=== PATIENT | female | born 1945 | race African-American/Black ===

== ENCOUNTER 2017-03-10 07:07 | Emergency (ER) | payer MEDICARE ==
[2017-03-10] MEDS ORDERED: LORazepam 2 MG/ML DISP.SYRIN IV ONE (07:23)
[2017-03-10] MEDS ORDERED: ONDANSETRON HCL/PF 2 MG/ML VIAL IV ONE (07:23)
[2017-03-10] MEDS ORDERED: LORazepam 2 MG/ML DISP.SYRIN ONE ×2 (07:24→09:26)
[2017-03-10] MEDS ORDERED: ONDANSETRON HCL/PF 2 MG/ML VIAL ONE (07:24)
[2017-03-10] MEDS ORDERED: NORMAL SALINE 1,000 ML IV ONE (07:33)
--- NOTE | 2017-03-10 07:34 | ERNOTE ---
<Juan C Barraza - Last Filed: 03/10/17 07:47> Medical Problem HPI - Narrative Date of Service: 03/10/17 - General Chief Complaint: Nausea/Vomiting Time Seen by Provider: 03/10/17 07:21 Source: patient Exam Limitations: no limitations - Immun/Allergies/Home Medications Immunizations: IMMUNIZATION HX Immunizations Up to Date Yes History of Influenza Vaccine No Hx Pneumococcal Vaccination No Allergies/Adverse Reactions: Allergies codeine Allergy (Verified 03/10/17 07:18) lisinopril Allergy (Verified 03/10/17 07:18) Penicillins Allergy (Verified 03/10/17 07:18) Sulfa (Sulfonamide Antibiotics) Allergy (Verified 03/10/17 07:18) Tetracyclines Allergy (Verified 03/10/17 07:18) verapamil [Verapamil] Allergy (Verified 03/10/17 07:18) MRI Dye Allergy (Uncoded 03/10/17 07:18) Home Medications: HOME MEDICATIONS Glimepiride [Amaryl] 4 mg PO DAILY 03/27/14 [Last Taken 02/26/16 08:00] Montelukast Sodium [Singulair] 10 mg PO DAILY 03/27/14 [Last Taken 02/26/16 08: 00] Rosuvastatin Calcium [Crestor] 5 mg PO HS 03/27/14 [Last Taken 02/25/16 21:00] Spironolactone [Aldactone] 25 mg PO BID 03/27/14 [Last Taken 02/25/16 21:00] Valsartan [Diovan] 160 mg PO DAILY #.1 tablet 02/27/16 [Last Taken Unknown] Atenolol [Tenormin] 100 mg PO DAILY 03/10/17 [Last Taken Unknown] DULoxetine HCL [Cymbalta] 30 mg PO HS 03/10/17 [Last Taken Unknown] Dexlansoprazole [Dexilant] 60 mg PO BID 03/10/17 [Last Taken Unknown] Duloxetine HCl [Cymbalta] 60 mg PO DAILY 03/10/17 [Last Taken Unknown] Insulin Glargine,Hum.rec.anlog [Lantus Solostar] 10 unit SQ HS 03/10/17 [Last Taken Unknown] Mirtazapine [Remeron] 30 mg PO HS 03/10/17 [Last Taken Unknown] - History of Present History Narrative: This is a 71-year-old female who comes into the emergency department with nausea and vomiting that started last night at 10 PM. The patient relates that she has a long history of gastroparesis, and has episodes where she has nausea and vomiting throughout the night quite frequently. A month ago she was having them every week, 3 times a week. She would typically start vomiting in the evening and get better by the morning. She said she usually felt a bit weak, but did not have any other significant symptoms. She had some medicines changed recently including her diabetes medicines. She says that she has not had an episode of vomiting for the last 2 weeks. Last night she started having her typical emesis. Unable to keep any water or food down. However unlike usual this morning she says she feels much weaker than usual and also says "I'm having trouble getting my words out" the patient denies any head trauma denies headache blurred vision. She denies fever but says that she did have chills last night. She denies any diarrhea. She denies blood in her stool or blood in her emesis. She denies abdominal pain or shortness of breath. She denies chest pain. She denies any other somatic complaints Timing: constant Severity: severe Modifying Factors - (Improves): Present: other. Absent: cold therapy - nothing , eating, immobilization, medication, movement Modifying Factors - (Worsens): Present: eating Review of Systems - Review of Systems Constitutional: Present: weakness, fatigue, malaise EYE: Present: no symptoms reported ENT: Present: no symptoms reported Respiratory: Present: no symptoms reported Cardiology: Present: no symptoms reported Gastrointestinal/Abdominal: Present: nausea, vomiting. Absent: diarrhea, constipation, abdominal pain Genitourinary: Present: no symptoms reported Musculoskeletal: Present: no symptoms reported Skin: Present: no symptoms reported Neurological: Present: other - trouble getting words out Endocrine: Present: other - has been having difficulty with her blood sugars. Which was changed from [place] to Lantus Hematologic/Lymphatic: Present: no symptoms reported Psych: Present: no symptoms reported All Other Systems: All systems neg except as marked - Patient's Past Medical History Patient History - Medical: Anemia, Anxiety, Diabetes Type 2, Depression, Fibromyalgia, GERD, Headache, Osteoarthritis Patient History - Cardiac/Respiratory: No pertinent hx Patient History - Cancer: Breast Patient History - Surgical Procedures: Cancer Surgery, Cataracts, Colonoscopy, Total Knee Replacement, Other Patient History - Other: None - Family History Mother Family History - Medical: , Diabetes Type 1 Father Family History - Medical: Family History - Cardiac/Respiratory: Myocardial Infarction - Social History Living Situations: spouse Abuse History: No History of abuse Psych History: No pertinent hx Smoking Status: Never smoker Have you smoked in the past 12 months: No Do you dip or chew tobacco: No Alcohol Use: none Drug Use: none - Immunizations Immunizations Up to Date: Yes Hx Pneumococcal Vaccination: No History of Influenza Vaccine: No Physical Exam - Physical Exam General Appearance: Present: wd/wn, alert, no apparent distress, other - patient 's emesis is primarily bilious. It is small amounts. There is not a strong abdominal contraction to lead to projectile vomiting. No abdominal pain is apparent. Head Exam: Present: normal inspection, no evidence of injury Eye Exam: Normal inspection: bilateral, PERRL: bilateral, EOMI: bilateral Ears, Nose, Throat: Present: normal ENT inspection, normal pharynx Neck: Present: normal inspection, nontender Respiratory: Present: no respiratory distress, normal breath sounds, no accessory muscle use, lungs clear Cardiovascular/Chest: Present: regular rate, rhythm, no murmur, normal peripheral pulses Gastrointestinal/Abdominal: Present: normal bowel sounds, nontender, nondistended, soft Back Exam: Present: normal inspection, no CVA tenderness, no vertebral tenderness Extremity Exam: Present: normal inspection, non-tender, normal range of motion Neurological Exam: Present: alert, oriented, normal mood/affect, no motor/ sensory deficits, other - she does appear anxious Skin Exam: Present: normal color Lymphatic Exam: Present: no adenopathy ED Progress - Results and Orders Patient's Lab Results:: I have reviewed the patient's lab results. - Vital Signs Patient's Vital Signs:: I have reviewed the patient's vital signs. Vital Signs: Vital Signs 03/10/17 07:08 Temperature 36.5 C Pulse Rate 74 Respiratory 16 Rate Blood Pressure 158/83 O2 Sat by Pulse 90 Oximetry - EKG EKG: NSR, other - voltage criteria only for LVH. Normal axis normal intervals no acute ischemic changes and borderline T-wave flattening in precordial leads EKG read: Interp. by me - Progress/Reassessment Chief Complaint: Nausea/Vomiting Progress:: Improved Progress Note-Subjective: 03/10/17 07:48 Patient received 16 mg of Zofran and 1 mg of Ativan. She is much more comfortable. Her retching and vomiting has stopped. She is very sleepy. She did just receive sedative medicines and has not slept all night. I am checking EKG and cardiac enzymes to eliminate cardiac etiology. If the patient had acute coronary syndrome as the cause of her symptoms, I would expected single troponin to be elevated as her symptoms started last night at 10 PM. I'm also obtaining a CT scan of her head due to her feeling like she can 't get the words out. Basic blood and urine tests are pending. I fully anticipate that she will have these tests come back essentially normal. I suspect when she is woken up in an hour to 2 hours she will feel much better and likely be able to go home. She will need to have conversation with her family doctor about getting back on the medicines which were working so well for her. - Transfer of Care Physician Sign Out: Juan C Barrzaa Brief History: 71 female with h/o gastroparesis with N/V. Also feels week Receiving Physician: Hong Srinivasan Pending Results: CT/MRI results, Labs, X-ray results Expected Disposition: Discharge Departure - Departure Clinical Impression: Gastroparesis due to DM, Weakness, Confusion and disorientation Intractable vomiting with nausea Qualifiers: Vomiting type: unspecified Qualified Code(s): R11.2 - Nausea with vomiting, unspecified Disposition: Home self-care Condition: Good Instructions: Gastroparesis Additional Instructions: Followup with your [place] doctor next week. <Hong Srinivasan - Last Filed: 03/10/17 09:06> Medical Problem HPI - Immun/Allergies/Home Medications Immunizations: IMMUNIZATION HX Immunizations Up to Date Yes History of Influenza Vaccine No Hx Pneumococcal Vaccination No ED Progress - Vital Signs Vital Signs: Vital Signs 03/10/17 03/10/17 03/10/17 07:08 07:10 07:26 Temperature 36.5 C Pulse Rate 74 69 82 Respiratory 16 18 13 Rate Blood Pressure 158/83 158/83 195/87 O2 Sat by Pulse 90 99 91 Oximetry 03/10/17 03/10/17 03/10/17 07:40 08:09 08:24 Temperature Pulse Rate 62 64 69 Respiratory 15 17 14 Rate Blood Pressure 150/73 136/63 138/59 O2 Sat by Pulse 93 99 Oximetry 03/10/17 08:59 Temperature Pulse Rate 78 Respiratory 14 Rate Blood Pressure 126/61 O2 Sat by Pulse Oximetry - Progress/Reassessment Progress Note-Subjective: 03/10/17 09:05 Feels much much better
[2017-03-10 07:43] LABS: Hematocrit 34.3 % (37.0-47.0); Hemoglobin 11.4 gm/dL (12.5-16.0); Mean Cell Volume 88.2 fl (78-100); Mean Corpuscular Hemoglobin 29.3 pg (27-31); Mean Corpuscular Hgb Conc 33.2 g/dl (32-36); Mean Platelet Volume 10.2 fl (6.0-9.5); Neutrophil # 7.2 K/mm3 (1.3-6.0); Neutrophil % 76.4 % (42-75.0); Platelet Count 303 K/mm3 (150-450); Red Blood Count 3.89 M/mm3 (4.2-5.4); Red Cell Distribution Width 14.2 % (11.5-14.0); White Blood Count 9.4 K/mm3 (4.0-10.5)
[2017-03-10 08:02] LABS: ALT 13 U/L (19-67); AST 16 U/L (0-48); Albumin * 3.6 gm/dl (3.4-5.0); Alkaline Phosphatase * 99 U/L (50-170); Anion Gap 14.3 mmol/L (6.8-13.8); BUN/Creatinine Ratio 12.2 (9.0-21.6); Bilirubin, Total 0.3 mg/dL (0.0-1.1); Blood Urea Nitrogen 10 mg/dL (3-23); Carbon Dioxide 25.3 mmol/L (24-32.6); Chloride 104 mmol/L (97-106); Glucose * 225 mg/dL (70-110); Potassium 3.6 mmol/L (3.4-4.6); Sodium 140 mmol/L (132-142); Total Protein 7.9 gm/dL (6.2-8.2); Troponin I Less than 0.017 ng/ml (0.00-0.10)
[2017-03-10 09:02] LABS: Urine Bilirubin Negative (NEGATIVE); Urine Blood Negative /ul (NEGATIVE); Urine Ketone Negative (NEGATIVE); Urine Nitrite Negative (NEGATIVE); Urine Protein Negative (NEGATIVE); Urine Specific Gravity 1.015 SP.GR. (1.005-1.010); Urine pH 7.5 pH (5.0-7.0)
[2017-03-10 09:08] LABS: Urine Appearance Clear; Urine Bacteria None Seen; Urine Color Yellow; Urine RBC None Seen /hpf (0-5); Urine WBC TRACE /hpf (0-5)
[2017-03-10] MEDS ORDERED: PROMETHAZINE HCL 50 MG/ML AMPUL IM ONE (09:23)
[2017-03-10] MEDS ORDERED: LORazepam 2 MG/ML DISP.SYRIN IM ONE (09:24)
[2017-03-10] MEDS ORDERED: PROMETHAZINE HCL 25 MG/ML AMPUL ONE (09:26)
[2017-03-10] MEDS ORDERED: chlorproMAZINE HCL 10 MG in NORMAL SALINE 50 ML IV ONE (10:19)
[2017-03-10] MEDS ORDERED: diphenhydrAMINE HCL 50 MG/ML VIAL IV ONE (10:19)
[2017-03-10] MEDS ORDERED: diphenhydrAMINE HCL 50 MG/ML VIAL ONE (10:32)
[2017-03-10 13:51] VITALS: BP 124/60
== END 2017-03-10 13:51 | disposition home or self-care (01) ==
LOC: ER 07:07
PROC: 0T9B7ZZ Drainage of Bladder, Via Natural or Artificial Opening (ICD-10-PCS; principal; 2017-03-10)
DX: E11.43 Type 2 diabetes mellitus with diabetic autonomic (poly)neuropathy (principal); K31.84 Gastroparesis; R11.2 Nausea with vomiting, unspecified; R41.0 Disorientation, unspecified; R53.1 Weakness
CPT/HCPCS: 36415; 51701; 70450; 71010; 80053; 81001; 84484; 85025; 93005; 96372; 96374; 96375; 99284; J2405

== ENCOUNTER 2017-04-01 12:44 | Emergency (ER) | payer MEDICARE ==
--- OUTSIDE RECORDS SUMMARY | 2017-04-01 13:26 | XMS REPORT | Clinical Summary ---
:1945 Author Organization [employer] [place] [address] Care Team Providers Name Role Phone Unavailable Primary Care Provider Unavailable Source Comments This disclosure is being made pursuant to the [employer] program and maynot contain all information available regarding this patient.[facility] Allergies Not on File Current Medications Be aware that medications may not be up to date as of this document. Alwaysverify current medications with the patient. Not on file Active Problems Not on file Social History Tobacco Use Types Packs/Day Years Used Date Never Assessed Sex Assigned at Date Recorded Not on file Last Filed Vital Signs Not on file Plan of Treatment Health Maintenance Due Date Last Done Comments Tetanus/Pertussis (1 - Tdap) 1962 Colonoscopy 1993 Mammogram 1993 Well Adult Visit 1993 Zoster Vaccine 60+ 2003 Bone Density 2008 Pneumococcal Low/Medium Risk 65+ (1 of 2 - PCV13) 2008 INFLUENZA IMMUNIZATION (#1) 2017 Results Not on filefrom Last 3 Months
[2017-04-01] MEDS ORDERED: METOCLOPRAMIDE HCL 5 MG/ML VIAL IV ONE (13:32)
[2017-04-01] MEDS ORDERED: diphenhydrAMINE HCL 50 MG/ML VIAL IV ONE (13:32)
[2017-04-01] MEDS ORDERED: NORMAL SALINE 1,000 ML IV ONE ×2 (13:32→15:28)
[2017-04-01] MEDS ORDERED: diphenhydrAMINE HCL 50 MG/ML VIAL ONE (13:52)
[2017-04-01] MEDS ORDERED: PHENTOLAMINE MESYLATE 5 MG/ML VIAL ONE (13:52)
[2017-04-01] MEDS ORDERED: METOCLOPRAMIDE HCL 5 MG/ML VIAL ONE (13:55)
[2017-04-01 13:58] LABS: Hematocrit 37.7 % (37.0-47.0); Hemoglobin 12.5 gm/dL (12.5-16.0); Mean Cell Volume 87.5 fl (78-100); Mean Corpuscular Hgb Conc 33.2 g/dl (32-36); Mean Platelet Volume 10.9 fl (6.0-9.5); Neutrophil # 11.1 K/mm3 (1.3-6.0); Neutrophil % 85.1 % (42-75.0); Platelet Count 355 K/mm3 (150-450); Red Blood Count 4.31 M/mm3 (4.2-5.4); Red Cell Distribution Width 13.7 % (11.5-14.0); White Blood Count 13.1 K/mm3 (4.0-10.5)
--- NOTE | 2017-04-01 14:09 | ERNOTE ---
Abdominal HPI - General Chief Complaint: Abdominal Pain Time Seen by Provider: 04/01/17 13:19 Source: patient, family - Immun/Allergies/Home Medications Immunizatons: IMMUNIZATION HX Immunizations Up to Date Yes History of Influenza Vaccine Yes Hx Pneumococcal Vaccination Yes Allergies/Adverse Reactions: Allergies codeine Allergy (Verified 04/01/17 13:01) lisinopril Allergy (Verified 04/01/17 13:01) Penicillins Allergy (Verified 04/01/17 13:01) Sulfa (Sulfonamide Antibiotics) Allergy (Verified 04/01/17 13:01) Tetracyclines Allergy (Verified 04/01/17 13:01) verapamil [Verapamil] Allergy (Verified 04/01/17 13:01) metoclopramide [From Reglan] Adverse Reaction (Verified 04/01/17 13:01) Other MRI Dye Allergy (Uncoded 04/01/17 13:01) Home Medications: HOME MEDICATIONS Glimepiride [Amaryl] 4 mg PO DAILY 03/27/14 [Last Taken 02/26/16 08:00] Montelukast Sodium [Singulair] 10 mg PO DAILY 03/27/14 [Last Taken 02/26/16 08: 00] Rosuvastatin Calcium [Crestor] 5 mg PO HS 03/27/14 [Last Taken 02/25/16 21:00] Spironolactone [Aldactone] 25 mg PO BID 03/27/14 [Last Taken 02/25/16 21:00] Valsartan [Diovan] 160 mg PO DAILY #.1 tablet 02/27/16 [Last Taken Unknown] Atenolol [Tenormin] 100 mg PO DAILY 03/10/17 [Last Taken Unknown] DULoxetine HCL [Cymbalta] 30 mg PO HS 03/10/17 [Last Taken Unknown] Dexlansoprazole [Dexilant] 60 mg PO BID 03/10/17 [Last Taken Unknown] Duloxetine HCl [Cymbalta] 60 mg PO DAILY 03/10/17 [Last Taken Unknown] Insulin Glargine,Hum.rec.anlog [Lantus Solostar] 10 unit SQ HS 03/10/17 [Last Taken Unknown] Mirtazapine [Remeron] 30 mg PO HS 03/10/17 [Last Taken Unknown] Metoclopramide HCl [Reglan] 5 mg PO ACHS PRN #28 tab 04/01/17 [Last Taken Unknown] - History of Present Illness Narrative: Patient presents with epigastric abdominal pain with fairly profound nausea and vomiting. Onset of symptoms was last night and she has not been able to keep anything down for the past roughly 16 hours. Patient states that she feels exceedingly thirsty however has not been able to eat or drink because of the nausea and vomiting. Timing: constant Quality: moderate Activities at Onset: none Modifying Factors - (Worsens): Present: eating Associated Symptoms: Present: nausea, vomiting Prior Abdominal Problems: Present: other - with her diabetes Review of Systems - Review of Systems Constitutional: Present: See HPI EYE: Present: no symptoms reported ENT: Present: no symptoms reported Respiratory: Present: no symptoms reported Cardiology: Present: no symptoms reported Gastrointestinal/Abdominal: Present: nausea, vomiting, abdominal pain Genitourinary: Present: no symptoms reported Musculoskeletal: Present: no symptoms reported Skin: Present: no symptoms reported Neurological: Present: no symptoms reported Endocrine: Present: no symptoms reported Hematologic/Lymphatic: Present: no symptoms reported Psych: Present: no symptoms reported - Patient's Past Medical History Patient History - Medical: Anemia, Anxiety, Diabetes Type 2, Depression, Fibromyalgia, GERD, Headache, Osteoarthritis Patient History - Cardiac/Respiratory: No pertinent hx Patient History - Cancer: Breast Patient History - Surgical Procedures: Cancer Surgery, Cataracts, Colonoscopy, Total Knee Replacement, Other Patient History - Other: None LMP (females 10-50): post - Family History Mother Family History - Medical: , Diabetes Type 1 Father Family History - Medical: Family History - Cardiac/Respiratory: Myocardial Infarction - Social History Living Situations: home Abuse History: No History of abuse Psych History: No pertinent hx Smoking Status: Never smoker Alcohol Use: none Drug Use: none - Immunizations Immunizations Up to Date: Yes Hx Pneumococcal Vaccination: Yes History of Influenza Vaccine: Yes Physical Exam - Physical Exam General Appearance: Present: wd/wn, alert, moderate distress Head Exam: Present: normal inspection, no evidence of injury Eye Exam: Normal inspection: bilateral, PERRL: bilateral Ears, Nose, Throat: Present: normal ENT inspection, H, normal pharynx Neck: Present: normal inspection, nontender Respiratory: Present: no respiratory distress, normal breath sounds, no accessory muscle use, chest nontender, lungs clear Cardiovascular/Chest: Present: regular rate, rhythm, no murmur, normal peripheral pulses Gastrointestinal/Abdominal: Present: normal bowel sounds, nondistended, soft, no organomegaly, tenderness Rectal Exam: Present: deferred Back Exam: Present: normal inspection, normal range of motion Extremity Exam: Present: normal inspection, non-tender, no edema, normal range of motion Neurological Exam: Present: alert, oriented, normal mood/affect Skin Exam: Present: normal color, warm/dry Lymphatic Exam: Present: no adenopathy ED Progress - Results and Orders Patient's Lab Results:: I have reviewed the patient's lab results. - Vital Signs Patient's Vital Signs:: I have reviewed the patient's vital signs. Vital Signs: Vital Signs 04/01/17 12:54 Temperature 35.5 C L Pulse Rate 71 Respiratory 22 H Rate Blood Pressure 140/78 O2 Sat by Pulse 99 Oximetry - X-Ray X-Ray #1 X-Ray: abdomen Interpretation: Reviewed by me - CT/Ultrasound CT/Ultrasound Narrative: CT results were reviewed by me. - Progress/Reassessment Chief Complaint: Abdominal Pain Progress:: Improved Plan - Plan Plan: While the patient is pain-free the contracted gallbladder with multiple gallstones is of some concern to me. I discussed the case with the surgeon sporting goods salesperson Dr. Dickinson and he requests that we get an outpatient gallbladder ultrasound tomorrow and he will see the patient in the office on Saturday. She has had an EGD in the past and it revealed what sounds like gastroparesis.. The patient was started on Reglan however she couldn't tolerate it, I told her we gave her Reglan and Benadryl here and she tolerated just fine. She will try the Reglan and and this time she will take it with Benadryl and agrees to come back tomorrow for the ultrasound and see the surgeon on Saturday. Departure - Departure Clinical Impression: Gastroparesis due to DM Cholelithiasis Qualifiers: Cholelithiasis location: gallbladder Cholecystitis presence: without cholecystitis Biliary obstruction: without biliary obstruction Qualified Code(s) : K80.20 - Calculus of gallbladder without cholecystitis without obstruction Condition: Good Instructions: Gastroparesis, Cholelithiasis, [id number] Referrals: Ananth Dickinson MD [Associate] - Prescriptions: Metoclopramide HCl [Reglan] 5 mg PO ACHS PRN #28 tab PRN Reason: Moderate Pain
[2017-04-01 14:11] LABS: ALT 8 U/L (19-67); AST 11 U/L (0-48); Alkaline Phosphatase * 112 U/L (50-170); BUN/Creatinine Ratio 14.8 (9.0-21.6); Bilirubin, Total 0.4 mg/dL (0.0-1.1); Blood Urea Nitrogen 13 mg/dL (3-23); Ca. Corrected For Albumin 9.7 mg/dL (8.4-10.2); Carbon Dioxide 21.7 mmol/L (24-32.6); Chloride 101 mmol/L (97-106); Glucose * 232 mg/dL (70-110); Lipase 76 U/L (73-393); Magnesium 1.6 mg/dL (1.2-2.8); Potassium 3.7 mmol/L (3.4-4.6); Sodium 139 mmol/L (132-142); Total Protein 9.1 gm/dL (6.2-8.2)
[2017-04-01] MEDS ORDERED: DIATRIZOATE MEGLUMINE, SODIUM 30 ML BTL PO ONE (14:48)
[2017-04-01] MEDS ORDERED: DIATRIZOATE MEGLUMINE, SODIUM 30 ML BTL ONE (14:49)
[2017-04-01 18:00] VITALS: BP 184/79
== END 2017-04-01 17:48 | disposition home or self-care (01) ==
LOC: ER 12:44
DX: E11.43 Type 2 diabetes mellitus with diabetic autonomic (poly)neuropathy (principal); K31.84 Gastroparesis; K80.20 Calculus of gallbladder without cholecystitis without obstruction; Z85.3 Personal history of malignant neoplasm of breast

== ENCOUNTER 2017-04-11 01:12 | Emergency (ER) | payer MEDICARE ==
--- NOTE | 2017-04-11 02:07 | ERNOTE ---
Abdominal HPI - General Chief Complaint: Abdominal Pain Time Seen by Provider: 04/11/17 01:45 Source: patient Exam Limitations: no limitations - Immun/Allergies/Home Medications Immunizatons: IMMUNIZATION HX Immunizations Up to Date Yes History of Influenza Vaccine Yes Hx Pneumococcal Vaccination Yes Allergies/Adverse Reactions: Allergies codeine Allergy (Verified 04/11/17 01:25) lisinopril Allergy (Verified 04/11/17 01:25) Penicillins Allergy (Verified 04/11/17 01:25) Sulfa (Sulfonamide Antibiotics) Allergy (Verified 04/11/17 01:25) Tetracyclines Allergy (Verified 04/11/17 01:25) verapamil [Verapamil] Allergy (Verified 04/11/17 01:25) metoclopramide [From Reglan] Adverse Reaction (Verified 04/11/17 01:25) Other MRI Dye Allergy (Uncoded 04/11/17 01:25) Home Medications: HOME MEDICATIONS Glimepiride [Amaryl] 4 mg PO DAILY 03/27/14 [Last Taken 02/26/16 08:00] Montelukast Sodium [Singulair] 10 mg PO DAILY 03/27/14 [Last Taken 02/26/16 08: 00] Rosuvastatin Calcium [Crestor] 5 mg PO HS 03/27/14 [Last Taken 02/25/16 21:00] Spironolactone [Aldactone] 25 mg PO BID 03/27/14 [Last Taken 02/25/16 21:00] Valsartan [Diovan] 160 mg PO DAILY #.1 tablet 02/27/16 [Last Taken Unknown] Atenolol [Tenormin] 100 mg PO DAILY 03/10/17 [Last Taken Unknown] DULoxetine HCL [Cymbalta] 30 mg PO HS 03/10/17 [Last Taken Unknown] Dexlansoprazole [Dexilant] 60 mg PO BID 03/10/17 [Last Taken Unknown] Duloxetine HCl [Cymbalta] 60 mg PO DAILY 03/10/17 [Last Taken Unknown] Insulin Glargine,Hum.rec.anlog [Lantus Solostar] 10 unit SQ HS 03/10/17 [Last Taken Unknown] Mirtazapine [Remeron] 30 mg PO HS 03/10/17 [Last Taken Unknown] Promethazine HCl [Phenergan (Promethazine)] 25 mg PO Q6H PRN #30 tab 04/11/17 [ Last Taken Unknown] traMADol HCL [Ultram] 50 mg PO QID PRN #20 tab 04/11/17 [Last Taken Unknown] - History of Present Illness Narrative: Pt has been having abdominal pain and nausea from diabetic gastroparesis for a number of months. She has seen Dr. Dickinson to assess her gallbladder and he made a referral for her to [facility] gastroenterology. Tonight the nausea and pain increased Timing: getting worse Quality: moderate, severe Activities at Onset: none Modifying Factors - (Worsens): Present: eating, lying down Prior Abdominal Problems: Present: similar symptoms Prior Treatment: Present: recently seen, treated by physician Review of Systems - Review of Systems Constitutional: Present: weakness, fatigue EYE: Present: no symptoms reported ENT: Present: no symptoms reported Respiratory: Present: no symptoms reported Cardiology: Present: no symptoms reported Gastrointestinal/Abdominal: Present: See HPI Genitourinary: Present: no symptoms reported Musculoskeletal: Present: no symptoms reported Skin: Present: no symptoms reported Neurological: Present: anxiety Endocrine: Present: no symptoms reported Hematologic/Lymphatic: Present: no symptoms reported Psych: Present: no symptoms reported - Patient's Past Medical History Patient History - Medical: Anemia, Anxiety, Diabetes Type 2, Depression, Fibromyalgia, GERD, Headache, Osteoarthritis, Other Patient History - Cardiac/Respiratory: No pertinent hx Patient History - Cancer: Breast Patient History - Surgical Procedures: Cancer Surgery, Cataracts, Colonoscopy, Total Knee Replacement, Other Patient History - Other: None - Family History Mother Family History - Medical: , Diabetes Type 1 Father Family History - Medical: Family History - Cardiac/Respiratory: Myocardial Infarction - Social History Living Situations: spouse Abuse History: No History of abuse Psych History: No pertinent hx Smoking Status: Never smoker Have you smoked in the past 12 months: No Do you dip or chew tobacco: No Alcohol Use: none Drug Use: none - Immunizations Immunizations Up to Date: Yes Hx Pneumococcal Vaccination: Yes History of Influenza Vaccine: Yes Physical Exam - Physical Exam General Appearance: Present: wd/wn, alert, mild distress Head Exam: Present: normal inspection, no evidence of injury Eye Exam: Normal inspection: bilateral Ears, Nose, Throat: Present: normal ENT inspection Neck: Present: normal inspection, nontender Respiratory: Present: no respiratory distress, no accessory muscle use, lungs clear Cardiovascular/Chest: Present: regular rate, rhythm, no murmur Gastrointestinal/Abdominal: Present: normal bowel sounds, nondistended, tenderness - generalized more epigastric Back Exam: Present: normal inspection, no vertebral tenderness Extremity Exam: Present: normal inspection, normal range of motion, no edema Neurological Exam: Present: alert, oriented Skin Exam: Present: normal color, warm/dry ED Progress - Results and Orders Patient's Lab Results:: I have reviewed the patient's lab results. Results and Orders: Laboratory Tests 04/11/17 04/11/17 01:57 01:57 WBC 13.1 H Hgb 11.1 L Hct 34.0 L Plt Count 305 Sodium 140 Potassium 3.8 Chloride 103 BUN 8 Creatinine 0.81 Random Glucose 196 H Calcium 9.5 Total Bilirubin 0.4 AST 10 ALT 7 L Alkaline Phosphatase 100 Total Protein 7.5 Albumin 3.3 L - Vital Signs Patient's Vital Signs:: I have reviewed the patient's vital signs. Vital Signs: Vital Signs 04/11/17 01:17 Temperature 36.2 C L Pulse Rate 60 Respiratory 16 Rate Blood Pressure 144/85 O2 Sat by Pulse 99 Oximetry - Progress/Reassessment Chief Complaint: Abdominal Pain Progress:: Improved Progress Note-Subjective: 04/11/17 05:00 Discussed the difficulty in getting diabetic gastroparesis under control. pt expressed understanding Departure - Departure Clinical Impression: Gastroparesis due to DM Disposition: Home Follow Up Needed Condition: Fair Instructions: Gastroparesis Additional Instructions: Use the medications prescribed as needed. Continue to follow up with Dr. Dickinson and work toward a gastroenterology consult. Prescriptions: Promethazine HCl [Phenergan (Promethazine)] 25 mg PO Q6H PRN #30 tab PRN Reason: nausea/vomiting traMADol HCL [Ultram] 50 mg PO QID PRN #20 tab PRN Reason: Pain
[2017-04-11] MEDS: NORMAL SALINE 1,000 ML IV ONE (02:08)
[2017-04-11 02:21] LABS: Hemoglobin 11.1 gm/dL (12.5-16.0); Mean Cell Volume 88.3 fl (78-100); Mean Corpuscular Hemoglobin 28.8 pg (27-31); Mean Corpuscular Hgb Conc 32.6 g/dl (32-36); Mean Platelet Volume 10.5 fl (6.0-9.5); Neutrophil # 10.9 K/mm3 (1.3-6.0); Neutrophil % 83.1 % (42-75.0); Platelet Count 305 K/mm3 (150-450); Red Blood Count 3.85 M/mm3 (4.2-5.4); Red Cell Distribution Width 13.6 % (11.5-14.0); White Blood Count 13.1 K/mm3 (4.0-10.5)
[2017-04-11 02:38] LABS: Albumin * 3.3 gm/dl (3.4-5.0); Anion Gap 14.8 mmol/L (6.8-13.8); BUN/Creatinine Ratio 9.9 (9.0-21.6); Bilirubin, Total 0.4 mg/dL (0.0-1.1); Ca. Corrected For Albumin 9.7 mg/dL (8.4-10.2); Calcium * 9.5 mg/dL (7.9-10.9); Potassium 3.8 mmol/L (3.4-4.6); Total Protein 7.5 gm/dL (6.2-8.2)
[2017-04-11] MEDS ORDERED: PROMETHAZINE HCL 25 MG/ML AMPUL ONE (03:16)
[2017-04-11] MEDS: PROMETHAZINE HCL 25 MG/ML AMPUL IM ONE (03:21)
[2017-04-11 04:31] VITALS: BP 155/88
== END 2017-04-11 04:00 | disposition home or self-care (01) ==
LOC: ER 01:12
DX: K31.84 Gastroparesis (principal); E11.43 Type 2 diabetes mellitus with diabetic autonomic (poly)neuropathy; Z79.1 Long term (current) use of non-steroidal anti-inflammatories (NSAID); F41.9 Anxiety disorder, unspecified; F32.9 Major depressive disorder, single episode, unspecified; Z85.3 Personal history of malignant neoplasm of breast

== ENCOUNTER 2017-06-17 09:32 | Emergency (ER) | payer MEDICARE ==
[2017-06-17 10:10] LABS: Hematocrit 35.9 % (37.0-47.0); Hemoglobin 12.1 gm/dL (12.5-16.0); Mean Cell Volume 85.9 fl (78-100); Mean Corpuscular Hemoglobin 28.9 pg (27-31); Mean Corpuscular Hgb Conc 33.7 g/dl (32-36); Mean Platelet Volume 9.8 fl (6.0-9.5); Neutrophil # 6.9 K/mm3 (1.3-6.0); Neutrophil % 70.6 % (42-75.0); Platelet Count 304 K/mm3 (150-450); Red Blood Count 4.18 M/mm3 (4.2-5.4); Red Cell Distribution Width 13.4 % (11.5-14.0); White Blood Count 9.8 K/mm3 (4.0-10.5)
[2017-06-17 10:22] LABS: Albumin * 3.8 gm/dl (3.4-5.0); Anion Gap 15.4 mmol/L (6.8-13.8); BUN/Creatinine Ratio 18.1 (9.0-21.6); Bilirubin, Total 0.5 mg/dL (0.0-1.1); Ca. Corrected For Albumin 9.1 mg/dL (8.4-10.2); Calcium * 9.3 mg/dL (7.9-10.9); Carbon Dioxide 23.8 mmol/L (24-32.6); Potassium 4.2 mmol/L (3.4-4.6); Total Protein 8.3 gm/dL (6.2-8.2)
[2017-06-17] MEDS ORDERED: ONDANSETRON 4 MG TAB.RAPDIS PO ONE (10:32)
[2017-06-17] MEDS ORDERED: ONDANSETRON 4 MG TAB.RAPDIS ONE (10:39)
[2017-06-17 11:57] LABS: Urine Bilirubin Negative (NEGATIVE); Urine Blood Negative /ul (NEGATIVE); Urine Ketone 5 mg/dL (NEGATIVE); Urine Nitrite Negative (NEGATIVE); Urine Protein Negative (NEGATIVE); Urine Specific Gravity >=1.030 SP.GR. (1.005-1.010); Urine Urobilinogen Normal (NORMAL)
[2017-06-17 12:06] LABS: Urine Appearance Clear; Urine Color Yellow
[2017-06-17 12:07] LABS: Urine Bacteria TRACE; Urine RBC None Seen /hpf (0-5); Urine WBC 0-5 /hpf (0-5)
--- NOTE | 2017-06-17 13:00 | ERNOTE ---
Medical Problem HPI - General Chief Complaint: General Assessment Time Seen by Provider: 06/17/17 10:22 Source: patient, family Exam Limitations: no limitations - Immun/Allergies/Home Medications Immunizations: IMMUNIZATION HX Immunizations Up to Date Yes History of Influenza Vaccine Yes Hx Pneumococcal Vaccination Yes Allergies/Adverse Reactions: Allergies codeine Allergy (Verified 06/17/17 09:43) lisinopril Allergy (Verified 06/17/17 09:43) Penicillins Allergy (Verified 06/17/17 09:43) Sulfa (Sulfonamide Antibiotics) Allergy (Verified 06/17/17 09:43) Tetracyclines Allergy (Verified 06/17/17 09:43) verapamil [Verapamil] Allergy (Verified 06/17/17 09:43) metoclopramide [From Reglan] Adverse Reaction (Verified 06/17/17 09:43) Other MRI Dye Allergy (Uncoded 06/17/17 09:43) Home Medications: HOME MEDICATIONS Glimepiride [Amaryl] 4 mg PO DAILY 03/27/14 [Last Taken 02/26/16 08:00] Montelukast Sodium [Singulair] 10 mg PO DAILY 03/27/14 [Last Taken 02/26/16 08: 00] Rosuvastatin Calcium [Crestor] 5 mg PO HS 03/27/14 [Last Taken 02/25/16 21:00] Spironolactone [Aldactone] 25 mg PO BID 03/27/14 [Last Taken 02/25/16 21:00] Valsartan [Diovan] 160 mg PO DAILY #.1 tablet 02/27/16 [Last Taken Unknown] Atenolol [Tenormin] 100 mg PO DAILY 03/10/17 [Last Taken Unknown] DULoxetine HCL [Cymbalta] 30 mg PO HS 03/10/17 [Last Taken Unknown] Dexlansoprazole [Dexilant] 60 mg PO BID 03/10/17 [Last Taken Unknown] Duloxetine HCl [Cymbalta] 60 mg PO DAILY 03/10/17 [Last Taken Unknown] Insulin Glargine,Hum.rec.anlog [Lantus Solostar] 10 unit SQ HS 03/10/17 [Last Taken Unknown] Mirtazapine [Remeron] 30 mg PO HS 03/10/17 [Last Taken Unknown] Promethazine HCl [Phenergan (Promethazine)] 25 mg PO Q6H PRN #30 tab 04/11/17 [ Last Taken Unknown] Clarithromycin [Biaxin] 500 mg PO BID 06/17/17 [Last Taken Unknown] Fluticasone Propionate [Flovent Diskus] 50 mcg IH DAILY 06/17/17 [Last Taken Unknown] Ondansetron [Zofran Odt] 4 mg PO Q4H PRN #10 tab 06/17/17 [Last Taken Unknown] Ranitidine HCl [Zantac] 150 mg PO BID 06/17/17 [Last Taken Unknown] metroNIDAZOLE [Flagyl] 500 mg PO TID 06/17/17 [Last Taken Unknown] - History of Present History Narrative: Patient has a history of abdominal pain for many months. She was most recently seen at [facility] two weeks ago, had a colonoscopy and EGD, was diagnosed with diverticulitis and "a bacterial stomach infection". Her pain was better for a few days, got worse again over the last four days. She has had intermittent vomiting. Her pain is in the left upper abdomen Review of Systems - Review of Systems Constitutional: Present: recent illness. Absent: fever ENT: Absent: nose congestion, sore throat Respiratory: Absent: shortness of breath Cardiology: Absent: chest pain Gastrointestinal/Abdominal: Present: See HPI, nausea, vomiting, diarrhea Genitourinary: Present: no symptoms reported Musculoskeletal: Absent: back pain Skin: Absent: rash Neurological: Absent: headache, weakness, numbness Hematologic/Lymphatic: Present: no symptoms reported - Patient's Past Medical History Patient History - Medical: Anemia, Anxiety, Diabetes Type 2, Depression, Fibromyalgia, GERD, Headache, Osteoarthritis, Other Patient History - Cardiac/Respiratory: No pertinent hx Patient History - Cancer: Breast Patient History - Surgical Procedures: Cancer Surgery, Cataracts, Colonoscopy, Total Knee Replacement, Other Patient History - Other: None - Family History Mother Family History - Medical: , Diabetes Type 1 Father Family History - Medical: Family History - Cardiac/Respiratory: Myocardial Infarction - Social History Living Situations: home Abuse History: No History of abuse Psych History: No pertinent hx - Immunizations Immunizations Up to Date: Yes Hx Pneumococcal Vaccination: Yes History of Influenza Vaccine: Yes Physical Exam - Physical Exam General Appearance: Present: wd/wn, alert, no apparent distress, anxious Respiratory: Present: no respiratory distress, normal breath sounds, no accessory muscle use, lungs clear Cardiovascular/Chest: Present: regular rate, rhythm, no murmur Gastrointestinal/Abdominal: Present: normal bowel sounds, nondistended, soft, tenderness - epigastric and left upper quadrant. Absent: guarding, rebound Extremity Exam: Present: no edema Neurological Exam: Present: alert, oriented, normal mood/affect Skin Exam: Present: normal color, warm/dry ED Progress - Results and Orders Patient's Lab Results:: I have reviewed the patient's lab results. - Vital Signs Patient's Vital Signs:: I have reviewed the patient's vital signs. Vital Signs: Vital Signs 06/17/17 06/17/17 06/17/17 09:38 11:56 12:23 Temperature 35.9 C L Pulse Rate 104 H 67 75 Respiratory 12 15 14 Rate Blood Pressure 109/42 133/54 144/60 O2 Sat by Pulse 97 96 95 Oximetry - X-Ray X-Ray #1 X-Ray: abdomen - non specific bowl gas pattern, no free air Interpretation: Reviewed by me - Progress/Reassessment Chief Complaint: General Assessment Progress Note-Subjective: 06/17/17 13:14 patient more comfortable, no vomiting here after zofran discussed test results with patient and family Departure Clinical Impression: Abdominal pain Qualifiers: Abdominal location: left upper quadrant Qualified Code(s): R10.12 - Left upper quadrant pain - Departure Disposition: Home self-care Condition: Good Instructions: Abdominal Pain, Adult, [id number] Additional Instructions: [facility] Prescriptions: Ondansetron [Zofran Odt] 4 mg PO Q4H PRN #10 tab PRN Reason: Nausea And Vomiting
[2017-06-17 13:09] VITALS: BP 123/67
== END 2017-06-17 13:20 | disposition home or self-care (01) ==
LOC: ER 09:32
DX: R10.12 Left upper quadrant pain (principal); F41.9 Anxiety disorder, unspecified; F32.9 Major depressive disorder, single episode, unspecified; E11.9 Type 2 diabetes mellitus without complications; Z79.4 Long term (current) use of insulin; Z85.3 Personal history of malignant neoplasm of breast

== ENCOUNTER 2017-06-17 23:36 | Emergency (ER) | payer MEDICARE ==
[2017-06-17] MEDS ORDERED: ONDANSETRON HCL/PF 2 MG/ML VIAL IV ONE (23:42)
[2017-06-17] MEDS ORDERED: NORMAL SALINE 1,000 ML IV ONE (23:45)
--- NOTE | 2017-06-17 23:47 | ERNOTE ---
Abdominal HPI - General Time Seen by Provider: 06/17/17 23:41 Source: patient, family Exam Limitations: clinical condition - Immun/Allergies/Home Medications Immunizatons: IMMUNIZATION HX Immunizations Up to Date Yes History of Influenza Vaccine Yes Hx Pneumococcal Vaccination Yes Allergies/Adverse Reactions: Allergies codeine Allergy (Verified 06/17/17 09:43) lisinopril Allergy (Verified 06/17/17 09:43) Penicillins Allergy (Verified 06/17/17 09:43) Sulfa (Sulfonamide Antibiotics) Allergy (Verified 06/17/17 09:43) Tetracyclines Allergy (Verified 06/17/17 09:43) verapamil [Verapamil] Allergy (Verified 06/17/17 09:43) metoclopramide [From Reglan] Adverse Reaction (Verified 06/17/17 09:43) Other MRI Dye Allergy (Uncoded 06/17/17 09:43) Home Medications: HOME MEDICATIONS Glimepiride [Amaryl] 4 mg PO DAILY 03/27/14 [Last Taken 02/26/16 08:00] Montelukast Sodium [Singulair] 10 mg PO DAILY 03/27/14 [Last Taken 02/26/16 08: 00] Rosuvastatin Calcium [Crestor] 5 mg PO HS 03/27/14 [Last Taken 02/25/16 21:00] Spironolactone [Aldactone] 25 mg PO BID 03/27/14 [Last Taken 02/25/16 21:00] Valsartan [Diovan] 160 mg PO DAILY #.1 tablet 02/27/16 [Last Taken Unknown] Atenolol [Tenormin] 100 mg PO DAILY 03/10/17 [Last Taken Unknown] Dexlansoprazole [Dexilant] 60 mg PO BID 03/10/17 [Last Taken Unknown] Duloxetine HCl [Cymbalta] 60 mg PO DAILY 03/10/17 [Last Taken Unknown] Insulin Glargine,Hum.rec.anlog [Lantus Solostar] 10 unit SQ BID 03/10/17 [Last Taken Unknown] Acetaminophen [Tylenol] 650 mg PO Q4H PRN 06/18/17 [Last Taken Unknown] Cholecalciferol (Vitamin D3) [Vitamin D] 2,000 unit PO DAILY 06/18/17 [Last Taken Unknown] Fluticasone Propionate [Flonase Allergy Relief] 9.9 ml NS DAILY PRN 06/18/17 [ Last Taken Unknown] Potassium Chloride [K-Dur] 40 meq PO DAILY 06/18/17 [Last Taken Unknown] Pramoxine HCl [Sarna] 222 ml TP PRN 06/18/17 [Last Taken Unknown] Prednisolone Acetate/Nepafenac [Prednisolone 1%-Nepafenac 0.1%] 3.5 ml OP TID [Last Taken Unknown] Promethazine HCl [Phenergan] 25 mg PO QID PRN #10 tab 06/18/17 [Last Taken Unknown] Sucralfate [Carafate] 1 gm PO HS 06/18/17 [Last Taken Unknown] - History of Present Illness Narrative: PtAbelardo has had N/V today and was seen in this ED approx. 12 hours ago. She was discharged with zofran and was feeling better. This evening she began to have LUQ abd/ left lower chest pain with nausea and presented to the ED. Timing: getting worse Quality: moderate, severe, dullness Activities at Onset: none Modifying Factors - (Worsens): Present: movement Associated Symptoms: Present: nausea, vomiting Prior Abdominal Problems: Present: similar symptoms Prior Treatment: Present: recently seen, treated by physician Review of Systems - Review of Systems Constitutional: Absent: recent illness EYE: Present: no symptoms reported ENT: Present: no symptoms reported Respiratory: Absent: shortness of breath Cardiology: Present: chest pain Gastrointestinal/Abdominal: Present: nausea, vomiting Genitourinary: Present: no symptoms reported Musculoskeletal: Present: back pain Skin: Absent: rash Neurological: Present: no symptoms reported Endocrine: Present: no symptoms reported Hematologic/Lymphatic: Present: no symptoms reported Psych: Present: no symptoms reported - Patient's Past Medical History Patient History - Medical: Anemia, Anxiety, Diabetes Type 2, Depression, Fibromyalgia, GERD, Headache, Osteoarthritis, Other Patient History - Cardiac/Respiratory: No pertinent hx Patient History - Cancer: Breast Patient History - Surgical Procedures: Cancer Surgery, Cataracts, Colonoscopy, Total Knee Replacement, Other Patient History - Other: None - Family History Mother Family History - Medical: , Diabetes Type 1 Father Family History - Medical: Family History - Cardiac/Respiratory: Myocardial Infarction - Social History Abuse History: No History of abuse Psych History: No pertinent hx - Immunizations Immunizations Up to Date: Yes Hx Pneumococcal Vaccination: Yes History of Influenza Vaccine: Yes Physical Exam - Physical Exam General Appearance: Present: wd/wn, alert, moderate distress, lethargic Head Exam: Present: normal inspection, no evidence of injury Eye Exam: Normal inspection: bilateral Neck: Present: normal inspection, nontender Respiratory: Present: no respiratory distress, normal breath sounds, lungs clear Cardiovascular/Chest: Present: regular rate, rhythm, no murmur, normal peripheral pulses Gastrointestinal/Abdominal: Present: normal bowel sounds, nondistended, soft, tenderness - LUQ & epigastric Back Exam: Present: normal inspection, normal range of motion, no CVA tenderness , no vertebral tenderness Extremity Exam: Present: normal inspection, normal range of motion Neurological Exam: Present: alert, oriented, no motor/sensory deficits, carpenter cradle and dolly II- XII nml as tested Skin Exam: Present: normal color, warm/dry Lymphatic Exam: Present: no adenopathy ED Progress - Results and Orders Patient's Lab Results:: I have reviewed the patient's lab results. Results and Orders: Laboratory Tests 06/17/17 06/18/17 00:00 Unknown WBC 10.7 H Hgb 11.3 L Hct 34.3 L Plt Count 285 Neutrophils % 78.5 H Sodium 138 Potassium 3.9 Chloride 102 Carbon Dioxide 23.8 L BUN 15 D Creatinine 1.03 Random Glucose 183 H Calcium 9.7 Total Bilirubin 0.6 AST 11 ALT 8 L Alkaline Phosphatase 108 Troponin I Less than 0.017 Total Protein 8.9 H Albumin 4.0 Amylase 69 Lipase 101 Laboratory Tests 06/18/17 01:05 Urine Color Yellow Urine Appearance Slightly cloudy Urine pH 5.5 Ur Specific [place] >=1.030 Urine Protein Negative Urine Glucose (UA) Negative Urine Ketones 15 Urine Blood 250 H Urine Nitrate Negative Urine Bilirubin Negative Urine Urobilinogen Normal Ur Leukocyte Esterase Negative Urine RBC 5-10 H Urine WBC None seen Ur Epithelial Cells 5-10 H Urine Bacteria 1+ H Hyaline Casts 0-5 H Urine Culture Comments No culture indicated - Vital Signs Patient's Vital Signs:: I have reviewed the patient's vital signs. - EKG EKG: NSR, nonspecific ST T wave changes EKG read: Interp. by de - X-Ray X-Ray #1 X-Ray: chest Interpretation: Interp. by me X-ray Comments: No pneumothorax, infiltrate or effusion. Cardiac size normal. bony elements intact X-Ray #2 X-Ray: abdomen Interpretation: Interp. by me X-ray Comments: non dilated, air-filled loops of bowel in the LUQ without evidence for obstruction. Mild to mod fecal retention - CT/Ultrasound CT/Ultrasound Narrative: CT abd/ pelvis without contrast: Sludge or small stones in the dependent portion of the gallbladder several mildly distended loops of small bowel with bowel wall thickening suggestive of enteritis Scattered colonic diverticula - Progress/Reassessment Progress:: Improved Progress Note-Subjective: 06/18/17 04:08 No pain or nausea at this time. discussed hydration techniques Departure Clinical Impression: Enteritis - Departure Disposition: Home self-care Condition: Fair Instructions: Viral Gastroenteritis, Adult, [id number], Nausea, Adult, Easy- to-Read, Rehydration, Elderly Additional Instructions: drink dilute sugar containing fluids such as watered down gatorade or watered down juice in frequent small sips. Use the medication as needed for nausea before you cannot hold down anything. See your regular doctor if not improving. Prescriptions: Promethazine HCl [Phenergan] 25 mg PO QID PRN #10 tab PRN Reason: nausea/vomiting
[2017-06-17] MEDS ORDERED: ONDANSETRON HCL/PF 2 MG/ML VIAL ONE (23:53)
[2017-06-18 00:19] LABS: ALT 8 U/L (19-67); AST 11 U/L (0-48); Alkaline Phosphatase * 108 U/L (50-170); Amylase * 69 U/L (25-115); Anion Gap 16.1 mmol/L (6.8-13.8); BUN/Creatinine Ratio 14.6 (9.0-21.6); Bilirubin, Total 0.6 mg/dL (0.0-1.1); Blood Urea Nitrogen 15 mg/dL (3-23); Ca. Corrected For Albumin 9.4 mg/dL (8.4-10.2); Calcium * 9.7 mg/dL (7.9-10.9); Carbon Dioxide 23.8 mmol/L (24-32.6); Chloride 102 mmol/L (97-106); Glucose * 183 mg/dL (70-110); Lipase 101 U/L (73-393); Potassium 3.9 mmol/L (3.4-4.6); Sodium 138 mmol/L (132-142); Total Protein 8.9 gm/dL (6.2-8.2); Troponin I Less than 0.017 ng/ml (0.00-0.10)
[2017-06-18 00:40] LABS: Hematocrit 34.3 % (37.0-47.0); Hemoglobin 11.3 gm/dL (12.5-16.0); Mean Cell Volume 86.6 fl (78-100); Mean Corpuscular Hemoglobin 28.5 pg (27-31); Mean Corpuscular Hgb Conc 32.9 g/dl (32-36); Mean Platelet Volume 10.3 fl (6.0-9.5); Neutrophil # 8.4 K/mm3 (1.3-6.0); Neutrophil % 78.5 % (42-75.0); Platelet Count 285 K/mm3 (150-450); Red Blood Count 3.96 M/mm3 (4.2-5.4); Red Cell Distribution Width 13.3 % (11.5-14.0); White Blood Count 10.7 K/mm3 (4.0-10.5)
[2017-06-18] MEDS ORDERED: DIATRIZOATE MEGLUMINE, SODIUM 30 ML BTL ONE (01:08)
[2017-06-18 01:09] LABS: Urine Bilirubin Negative (NEGATIVE); Urine Blood 250 /ul (NEGATIVE); Urine Ketone 15 mg/dL (NEGATIVE); Urine Nitrite Negative (NEGATIVE); Urine Protein Negative (NEGATIVE); Urine Specific Gravity >=1.030 SP.GR. (1.005-1.010); Urine Urobilinogen Normal (NORMAL); Urine pH 5.5 pH (5.0-7.0)
[2017-06-18] MEDS ORDERED: DIATRIZOATE MEGLUMINE, SODIUM 30 ML BTL PO ONE (01:12)
[2017-06-18 01:31] LABS: Urine Appearance Slightly Cloudy; Urine Color Yellow; Urine WBC None Seen /hpf (0-5)
[2017-06-18 01:32] LABS: Urine Bacteria 1+; Urine Hyaline Cast 0-5 /LPF
[2017-06-18 03:56] VITALS: BP 135/71
[2017-06-18] MEDS ORDERED: PROMETHAZINE HCL 25 MG TABLET PO ONE (04:04)
[2017-06-18] MEDS ORDERED: PROMETHAZINE HCL 25 MG TABLET ONE (04:12)
== END 2017-06-18 04:15 | disposition home or self-care (01) ==
LOC: ER 23:36
DX: K52.9 Noninfective gastroenteritis and colitis, unspecified (principal); E11.9 Type 2 diabetes mellitus without complications; Z79.4 Long term (current) use of insulin; Z85.3 Personal history of malignant neoplasm of breast; F41.9 Anxiety disorder, unspecified; F32.9 Major depressive disorder, single episode, unspecified
CPT/HCPCS: 36415; 71010; 74000; 74176; 80053; 81001; 82150; 83690; 84484; 85025; 93005; 96374; 99285; J2405

== ENCOUNTER 2018-05-11 10:19 | Observation (INO) ==
[2018-05-11] MEDS ORDERED: diphenhydrAMINE HCL 50 MG/ML VIAL IV ONE ×2 (10:50→22:22)
[2018-05-11] MEDS ORDERED: NORMAL SALINE 1,000 ML IV ONE ×4 (10:50→17:36)
[2018-05-11] MEDS ORDERED: PROCHLORPERAZINE EDISYLATE 5 MG/ML VIAL IV ONE (10:50)
--- NOTE | 2018-05-11 10:52 | ERNOTE ---
Medical Problem HPI - General Chief Complaint: Nausea/Vomiting Time Seen by Provider: 05/11/18 10:46 Source: patient Exam Limitations: no limitations - Immun/Allergies/Home Medications Immunizations: IMMUNIZATION HX Immunizations Up to Date Yes History of Influenza Vaccine Yes Hx Pneumococcal Vaccination More Information Required Allergies/Adverse Reactions: Allergies codeine Allergy (Verified 05/11/18 10:38) enalapril Allergy (Verified 05/11/18 10:38) angioedema Latex, Natural Rubber Allergy (Verified 05/11/18 10:38) Hives lisinopril Allergy (Verified 05/11/18 10:38) Penicillins Allergy (Verified 05/11/18 10:38) salsalate Allergy (Verified 05/11/18 10:38) angioedema spironolactone Allergy (Verified 05/11/18 10:38) pruirtus Sulfa (Sulfonamide Antibiotics) Allergy (Verified 05/11/18 10:38) Tetracyclines Allergy (Verified 05/11/18 10:38) tramadol Allergy (Verified 05/11/18 10:38) throat swelling verapamil [Verapamil] Allergy (Verified 05/11/18 10:38) atorvastatin [From Lipitor] Adverse Reaction (Verified 05/11/18 10:38) myalgia fish oil Adverse Reaction (Verified 05/11/18 10:38) fructose Adverse Reaction (Verified 05/11/18 10:38) Diarrhea lactose Adverse Reaction (Verified 05/11/18 10:38) Diarrhea metformin Adverse Reaction (Verified 05/11/18 10:38) diarrhea metoclopramide [From Reglan] Adverse Reaction (Verified 05/11/18 10:38) Other MRI Dye Allergy (Uncoded 05/11/18 10:38) Home Medications: HOME MEDICATIONS Montelukast Sodium [Singulair] 10 mg PO DAILY 03/27/14 [Last Taken 02/26/16 08: 00] Rosuvastatin Calcium [Crestor] 5 mg PO HS 03/27/14 [Last Taken 02/25/16 21:00] Spironolactone [Aldactone] 25 mg PO BID 03/27/14 [Last Taken 02/25/16 21:00] Atenolol [Tenormin] 100 mg PO DAILY 03/10/17 [Last Taken Unknown] Duloxetine HCl [Cymbalta] 60 mg PO DAILY 03/10/17 [Last Taken Unknown] Insulin Glargine,Hum.rec.anlog [Lantus Solostar] 10 unit SQ BID 03/10/17 [Last Taken Unknown] Acetaminophen [Tylenol] 650 mg PO Q4H PRN 06/18/17 [Last Taken Unknown] Cholecalciferol (Vitamin D3) [Vitamin D] 2,000 unit PO DAILY 06/18/17 [Last Taken Unknown] Fluticasone Propionate [Flonase Allergy Relief] 9.9 ml NS DAILY PRN 06/18/17 [ Last Taken Unknown] Potassium Chloride [K-Dur] 40 meq PO DAILY 06/18/17 [Last Taken Unknown] Pramoxine HCl [Sarna] 222 ml TP PRN 06/18/17 [Last Taken Unknown] Prednisolone Acetate/Nepafenac [Prednisolone 1%-Nepafenac 0.1%] 3.5 ml OP TID [Last Taken Unknown] Promethazine HCl [Phenergan] 25 mg PO QID PRN #10 tab 06/18/17 [Last Taken Unknown] loratadine 10 mg tablet 10 mg PO DAILY 04/16/18 [Last Taken Unknown] losartan 50 mg tablet 50 mg PO DAILY 04/16/18 [Last Taken Unknown] mirtazapine 30 mg tablet 30 mg PO DAILY 04/16/18 [Last Taken Unknown] ranitidine 150 mg tablet 150 mg PO DAILY 04/16/18 [Last Taken Unknown] HYDROmorphone HCL [Dilaudid] 2 mg IJ QID PRN #10 vial 05/04/18 [Last Taken Unknown] Ibuprofen [Motrin] 600 mg PO TID PRN #30 tab 05/04/18 [Last Taken Unknown] Ondansetron [Zofran Odt] 4 mg PO Q6H PRN #20 tab 05/04/18 [Last Taken Unknown] - History of Present History Narrative: Patient presents with left-sided abdominal pain since approximately 1:00 this morning. She believes she is known up in the neighborhood of 8 times and describes the pain as at least moderate in severity if not worse and is somewhat crampy in nature. Timing: constant, intermittent Severity: moderate, severe Review of Systems - Review of Systems Constitutional: Present: See HPI EYE: Present: no symptoms reported ENT: Present: no symptoms reported Respiratory: Present: no symptoms reported Cardiology: Present: no symptoms reported Gastrointestinal/Abdominal: Present: See HPI Genitourinary: Present: no symptoms reported Musculoskeletal: Present: no symptoms reported Skin: Present: no symptoms reported Neurological: Present: no symptoms reported Endocrine: Present: no symptoms reported Hematologic/Lymphatic: Present: no symptoms reported Psych: Present: no symptoms reported Medical History (Last Reviewed 05/04/18 @ 01:44 by Melissa Pedroza) Anemia Onset Date: ~2005 Depression Onset Date: ~2003 Diabetes mellitus, type II Onset Date: ~1999 Fibromyalgia Onset Date: ~2004 GERD (gastroesophageal reflux disease) Onset Date: ~2011 Hyperlipidemia Onset Date: ~1997 Obesity Onset Date: ~06/20/15 Sleep apnea Onset Date: ~03/2006 Sarcoidosis Onset Date: ~1997 Surgical History: Surgical History (Last Reviewed 05/04/18 @ 01:44 by Melissa Pedroza) H/O cardiac catheterization Onset Date: ~2003 H/O colonoscopy Onset Date: ~07/2004 H/O echocardiogram Onset Date: ~02/03/14 History of cataract surgery Onset Date: ~2000 History of esophagogastroduodenoscopy (EGD) Onset Date: ~2015 History of knee replacement Onset Date: ~01/21/14 History of partial mastectomy of right breast Onset Date: ~02/08/12 Pseudotumor cerebri Onset Date: ~1975 Strabismus Onset Date: ~1954 Family History: Family History (Last Updated 04/16/18 @ 11:32 by Giuseppe Forte) Sister Multiple sclerosis Father Myocardial infarction Mother Diabetes Cancer Social History: Preferred Language Ukrainian Smoking Status Former smoker Abuse History No History of abuse Psych History No pertinent hx Alcohol Use none Drug Use none Physical Exam - Physical Exam General Appearance: Present: wd/wn, alert, moderate distress, severe distress Head Exam: Present: normal inspection, no evidence of injury Eye Exam: Normal inspection: bilateral, PERRL: bilateral Ears, Nose, Throat: Present: normal ENT inspection, H, normal pharynx Neck: Present: normal inspection, nontender Respiratory: Present: no respiratory distress, normal breath sounds, no accessory muscle use, chest nontender, lungs clear Cardiovascular/Chest: Present: regular rate, rhythm, no murmur, normal peripheral pulses Gastrointestinal/Abdominal: Present: normal bowel sounds, nondistended, soft, no organomegaly, tenderness - on the left side of the abdomen both upper and lower quadrants, guarding Rectal Exam: Present: deferred Back Exam: Present: normal inspection, normal range of motion Extremity Exam: Present: normal inspection, non-tender, no edema, normal range of motion Neurological Exam: Present: alert, oriented, normal mood/affect Skin Exam: Present: normal color, warm/dry Lymphatic Exam: Present: no adenopathy ED Progress - Results and Orders Patient's Lab Results:: I have reviewed the patient's lab results. - Vital Signs Patient's Vital Signs:: I have reviewed the patient's vital signs. Vital Signs: Vital Signs 05/11/18 10:31 Temperature 36.0 C Pulse Rate 56 L Respiratory Rate 17 Blood Pressure 165/86 H O2 Sat by Pulse Oximetry 95 - CT/Ultrasound CT/Ultrasound Narrative: CT the abdomen and pelvis reviewed by me - Progress/Reassessment Chief Complaint: Nausea/Vomiting Plan - Plan Plan: Unclear etiology for the elevated white count and the persistent lactic acidosis. It's entirely possible that we do have some infectious like etiology and the abdomen I have ordered a stool sample. We have assisted in minimizing the vomiting and possibly gastroparesis is at the heart of this, but she'll be admitted for further IV fluids and nausea vomiting control. Departure Clinical Impression: Gastroparesis due to DM Intractable vomiting with nausea Qualifiers: Vomiting type: unspecified Qualified Code(s): R11.2 - Nausea with vomiting, unspecified - Departure Disposition: Still a patient Condition: Fair
[2018-05-11] MEDS ORDERED: diphenhydrAMINE HCL 50 MG/ML VIAL ONE ×2 (11:09→22:31)
[2018-05-11] MEDS ORDERED: PROCHLORPERAZINE EDISYLATE 5 MG/ML VIAL ONE (11:09)
[2018-05-11 11:10] LABS: Hematocrit 38.3 % (37.0-47.0); Mean Cell Volume 85.9 fl (78-100); Mean Corpuscular Hemoglobin 29.1 pg (27-31); Mean Corpuscular Hgb Conc 33.9 g/dl (32-36); Mean Platelet Volume 10.4 fl (8-12.5); Neutrophil # 15.5 K/mm3 (1.3-6.0); Neutrophil % 77.4 % (42-75.0); Platelet Count 352 K/mm3 (150-450); Red Blood Count 4.46 M/mm3 (4.2-5.4); Red Cell Distribution Width 13.1 % (11.5-14.0); White Blood Count 20.1 K/mm3 (4.0-10.5)
[2018-05-11 11:18] LABS: Albumin * 3.6 gm/dl (3.4-5.0); Anion Gap 10.8 mmol/L (6.8-13.8); BUN/Creatinine Ratio 16.9 (9.0-21.6); Bilirubin, Total 0.5 mg/dL (0.0-1.1); Ca. Corrected For Albumin 9.3 mg/dL (8.4-10.2); Calcium * 9.3 mg/dL (7.9-10.9); Carbon Dioxide 31.7 mmol/L (24-32.6); Magnesium 1.6 mg/dL (1.2-2.8); Potassium 3.5 mmol/L (3.4-4.6); Total Protein 7.7 gm/dL (6.2-8.2)
[2018-05-11] MEDS ORDERED: ONDANSETRON HCL/PF 2 MG/ML VIAL IV ONE ×2 (11:26→14:43)
[2018-05-11] MEDS ORDERED: DIATRIZOATE MEGLUMINE, SODIUM 30 ML BTL PO ONE (11:30)
[2018-05-11] MEDS ORDERED: ONDANSETRON HCL/PF 2 MG/ML VIAL ONE ×2 (11:31→14:50)
[2018-05-11] MEDS ORDERED: DIATRIZOATE MEGLUMINE, SODIUM 30 ML BTL ONE (11:32)
[2018-05-11 13:03] LABS: Urine Bilirubin Negative (NEGATIVE); Urine Blood Negative /ul (NEGATIVE); Urine Color Yellow; Urine Ketone Negative (NEGATIVE)
[2018-05-11 13:04] LABS: Urine Nitrite Negative (NEGATIVE); Urine Protein Negative (NEGATIVE); Urine Urobilinogen Normal (NORMAL)
[2018-05-11 13:14] LABS: Urine Bacteria 1+; Urine RBC None Seen /hpf (0-5); Urine WBC 0-5 /hpf (0-5)
[2018-05-11 13:15] LABS: Urine Appearance Slightly Cloudy (CLEAR)
[2018-05-11] MEDS ORDERED: PROMETHAZINE HCL 6.25 MG/5 ML PO PRN (17:37)
[2018-05-11] MEDS ORDERED: MORPHINE SULFATE 2 MG/ML DISP.SYRIN IV ONE (17:40)
[2018-05-11] MEDS ORDERED: ACETAMINOPHEN 325 MG TABLET PO PRN (21:35)
[2018-05-11] MEDS ORDERED: PROMETHAZINE HCL 25 MG TABLET PO PRN (21:35)
[2018-05-11] MEDS ORDERED: ONDANSETRON 4 MG TAB.RAPDIS PO PRN (21:35)
[2018-05-11] MEDS ORDERED: IBUPROFEN 600 MG TABLET PO PRN (22:23)
[2018-05-11] MEDS ORDERED: IBUPROFEN 600 MG TABLET ONE (22:32)
[2018-05-11] MEDS ORDERED: LIDOCAINE 1 PATCH ADH..PATCH TP ONE (22:32)
[2018-05-11] MEDS ORDERED: LIDOCAINE 1 PATCH ADH..PATCH TP SCH (22:45)
--- NOTE | 2018-05-11 22:50 | HP ---
Chief Complaint - Chief Complaint Date of Service: 05/11/18 Time of Service: 19:24 Chief Complaint: shoulder, abdominal pain History of Present Illness: 72 yo F presents for 1 day severe shoulder and abdominal pain. She denies injury or accident. She denies fever or chills, no blood in her stool. This has been an ongoing process for >1 year that waxes and wanes. Same with the shoulder issue. In the ER she had an elevated WBC (>20) but no source. She had an abdominal CT scan that showed moderate stool retention but no other acute process. Her UA was negative for infection. Her pain is moderate to severe. Her VS are stable (mildly elevated BP but considering the pain she is in, this is not surprising). She has an extensive allergy list. She has a PMHx of depression, DM, fibromyalgia, anemia, obesity, and OA. Medical History (Last Reviewed 05/11/18 @ 15:36 by Iman Alexander RN) Anemia Onset Date: ~2005 Depression Onset Date: ~2003 Diabetes mellitus, type II Onset Date: ~1999 Fibromyalgia Onset Date: ~2004 GERD (gastroesophageal reflux disease) Onset Date: ~2011 Hyperlipidemia Onset Date: ~1997 Obesity Onset Date: ~06/20/15 Sleep apnea Onset Date: ~03/2006 Sarcoidosis Onset Date: ~1997 Surgical History: Surgical History (Last Reviewed 05/11/18 @ 15:36 by Iman Alexander RN) H/O cardiac catheterization Onset Date: ~2003 H/O colonoscopy Onset Date: ~07/2004 H/O echocardiogram Onset Date: ~02/03/14 History of cataract surgery Onset Date: ~2000 History of esophagogastroduodenoscopy (EGD) Onset Date: ~2015 History of knee replacement Onset Date: ~01/21/14 History of partial mastectomy of right breast Onset Date: ~02/08/12 Pseudotumor cerebri Onset Date: ~1975 Strabismus Onset Date: ~1954 Family History: Family History (Last Reviewed 05/11/18 @ 15:36 by Iman Alexander RN) Sister Multiple sclerosis Father Myocardial infarction Mother Diabetes Cancer Social History: Patient Lives/Resources Home Utilized Occupation Retired Preferred Language Syriac Do you have any temple or No cultural preference? Smoking Status Never smoker Have you smoked in the past 12 No months Abuse History No History of abuse Psych History No pertinent hx Alcohol Use none Drug Use none Review Of Systems (GEN) - Review of Systems Generalized/Overall Review: Absent: Weakness, Chills, Fever EENTM: Present: No Symptoms Reported Respiratory: Present: No Symptoms Reported Cardiac: Present: No Symptoms Reported Abdominal: Present: Abdominal Pain - LUQ pain, appears to be myofascial in nature Genitourinary: Present: No Symptoms Reported Musculoskeletal: Present: Joint Pain - L shoulder pain with radiation into arm. No weakness or numbness Skin: Present: No Symptoms Reported Endocrine: Present: No Symptoms Reported Immunizations: IMMUNIZATION HX Immunizations Up to Date Yes History of Influenza Vaccine Yes Hx Pneumococcal Vaccination More Information Required Allergies/Adverse Reactions: Allergies Allergy/AdvReac Type Severity Reaction Status Date / Time codeine Allergy Verified 05/11/18 15:16 enalapril Allergy angioedema Verified 05/11/18 15:16 Latex, Natural Rubber Allergy Hives Verified 05/11/18 15:16 lisinopril Allergy Verified 05/11/18 15:16 Penicillins Allergy Verified 05/11/18 15:16 salsalate Allergy angioedema Verified 05/11/18 15:16 spironolactone Allergy pruirtus Verified 05/11/18 15:16 Sulfa (Sulfonamide Allergy Verified 05/11/18 15:16 Antibiotics) Tetracyclines Allergy Verified 05/11/18 15:16 tramadol Allergy throat Verified 05/11/18 15:16 swelling verapamil [Verapamil] Allergy Verified 05/11/18 15:16 atorvastatin [From Lipitor] AdvReac myalgia Verified 05/11/18 15:16 fish oil AdvReac Verified 05/11/18 15:16 fructose AdvReac Diarrhea Verified 05/11/18 15:16 lactose AdvReac Diarrhea Verified 05/11/18 15:16 metformin AdvReac diarrhea Verified 05/11/18 15:16 metoclopramide [From Reglan] AdvReac Other Verified 05/11/18 15:16 MRI Dye Allergy Uncoded 05/11/18 15:16 Home Medications: HOME MEDICATIONS Montelukast Sodium [Singulair] 10 mg PO DAILY 03/27/14 [Last Taken 02/26/16 08: 00] Rosuvastatin Calcium [Crestor] 5 mg PO HS 03/27/14 [Last Taken 02/25/16 21:00] Spironolactone [Aldactone] 25 mg PO BID 03/27/14 [Last Taken 02/25/16 21:00] Atenolol [Tenormin] 100 mg PO DAILY 03/10/17 [Last Taken Unknown] Duloxetine HCl [Cymbalta] 60 mg PO DAILY 03/10/17 [Last Taken Unknown] Insulin Glargine,Hum.rec.anlog [Lantus Solostar] 10 unit SQ BID 03/10/17 [Last Taken Unknown] Acetaminophen [Tylenol] 650 mg PO Q4H PRN 06/18/17 [Last Taken Unknown] Cholecalciferol (Vitamin D3) [Vitamin D] 2,000 unit PO DAILY 06/18/17 [Last Taken Unknown] Fluticasone Propionate [Flonase Allergy Relief] 9.9 ml NS DAILY PRN 06/18/17 [ Last Taken Unknown] Potassium Chloride [K-Dur] 40 meq PO DAILY 06/18/17 [Last Taken Unknown] Pramoxine HCl [Sarna] 222 ml TP PRN 06/18/17 [Last Taken Unknown] Prednisolone Acetate/Nepafenac [Prednisolone 1%-Nepafenac 0.1%] 3.5 ml OP TID [Last Taken Unknown] Promethazine HCl [Phenergan] 25 mg PO QID PRN #10 tab 06/18/17 [Last Taken Unknown] loratadine 10 mg tablet 10 mg PO DAILY 04/16/18 [Last Taken Unknown] losartan 50 mg tablet 50 mg PO DAILY 04/16/18 [Last Taken Unknown] mirtazapine 30 mg tablet 30 mg PO DAILY 04/16/18 [Last Taken Unknown] ranitidine 150 mg tablet 150 mg PO DAILY 04/16/18 [Last Taken Unknown] HYDROmorphone HCL [Dilaudid] 2 mg IJ QID PRN #10 vial 05/04/18 [Last Taken Unknown] Ibuprofen [Motrin] 600 mg PO TID PRN #30 tab 05/04/18 [Last Taken Unknown] Ondansetron [Zofran Odt] 4 mg PO Q6H PRN #20 tab 05/04/18 [Last Taken Unknown] Exam - Exam Vital Signs: Vital Signs - Last Taken Temp 36.5 C 05/11/18 14:51 Pulse 56 L 05/11/18 14:51 Resp 18 05/11/18 14:51 BP 158/68 H 05/11/18 14:51 Pulse Ox 98 05/11/18 14:51 Constitutional: Present: Alert, Oriented x3, Moderate distress, Severe distress Neck: Present: full range of motion, supple, normal inspection, tender lateral - left para-cervical muscles Breasts: Present: Exam deferred Respiratory: Present: chest non-tender, lungs clear, normal breath sounds, no respiratory distress - hyperventilating, anxious Cardiovascular/Chest: Present: normal peripheral pulses, regular rate, rhythm, no edema Abdomen: Present: Normal bowel sounds, soft, no hepatospenomegaly, no masses, tender - under left breast, around the side. Absent: guarding, rebound tenderness /Rectal: Present: Exam deferred Skin Exam: Present: normal color Appearance: Present: appropriate appearance, impaired insight Eye contact: Present: cooperative, increased rate of speech Thoughts: Absent: normal thought pattern, normal mood /affect Diagnostic Studies: Abnormal Lab Results 05/11/18 05/11/18 05/11/18 Range/Units 11:00 11:00 11:00 WBC 20.1 H (4.0-10.5) K/mm3 Immature Gran % (Auto) 0.50 H (0.001-0.429) % Immature Gran # (Auto) 0.11 H (0.000-0.0310) K/mm3 Neutrophils % 77.4 H (42-75.0) % Lymphocytes % 14.1 L (20-51) % Neutrophils # 15.5 H (1.3-6.0) K/mm3 Monocytes # 1.5 H (0.0-1.0) k/mm3 Lactic Acid, Venous 2.2 H* (0.4-2.0) mmol/L ALT 15 L (19-67) U/L Lipase 65 L (73-393) U/L Urine pH (5.0-7.0) pH Urine Bacteria (NONE) 05/11/18 05/11/18 Range/Units 13:00 13:50 WBC (4.0-10.5) K/mm3 Immature Gran % (Auto) (0.001-0.429) % Immature Gran # (Auto) (0.000-0.0310) K/mm3 Neutrophils % (42-75.0) % Lymphocytes % (20-51) % Neutrophils # (1.3-6.0) K/mm3 Monocytes # (0.0-1.0) k/mm3 Lactic Acid, Venous 2.2 H* (0.4-2.0) mmol/L ALT (19-67) U/L Lipase (73-393) U/L Urine pH 8.0 H (5.0-7.0) pH Urine Bacteria 1+ H (NONE) Laboratory Results WBC 20.1 K/mm3 (4.0-10.5) H 05/11/18 11:00 RBC 4.46 M/mm3 (4.2-5.4) 05/11/18 11:00 Hgb 13.0 gm/dL (12.5-16.0) 05/11/18 11:00 Hct 38.3 % (37.0-47.0) 05/11/18 11:00 MCV 85.9 fl (78-100) 05/11/18 11:00 MCH 29.1 pg (27-31) 05/11/18 11:00 MCHC 33.9 g/dl (32-36) 05/11/18 11:00 RDW 13.1 % (11.5-14.0) 05/11/18 11:00 Plt Count 352 K/mm3 (150-450) 05/11/18 11:00 MPV 10.4 fl (8-12.5) 05/11/18 11:00 Immature Gran % (Auto) 0.50 % (0.001-0.429) H 05/11/18 11:00 Immature Gran # (Auto) 0.11 K/mm3 (0.000-0.0310) H 05/11/18 11:00 Neutrophils % 77.4 % (42-75.0) H 05/11/18 11:00 Lymphocytes % 14.1 % (20-51) L 05/11/18 11:00 Monocytes % 7.7 % (0.0-9) 05/11/18 11:00 Eosinophils % 0.2 % (0.0-3.0) 05/11/18 11:00 Basophils % 0.1 % (0.0-1.0) 05/11/18 11:00 Nucleated RBC % 0.0 k/mm3 (0-1) 05/11/18 11:00 Neutrophils # 15.5 K/mm3 (1.3-6.0) H 05/11/18 11:00 Lymphocytes # 2.84 k/mm3 (1.5-3.5) 05/11/18 11:00 Monocytes # 1.5 k/mm3 (0.0-1.0) H 05/11/18 11:00 Eosinophils # 0.1 k/mm3 (0.0-0.7) 05/11/18 11:00 Absolute Basophils 0.0 k/mm3 (0.0-0.1) 05/11/18 11:00 Sodium 141 mmol/L (132-142) 05/11/18 11:00 Plasma Sodium 141 mmol/L (130-142) 05/11/18 11:00 Potassium 3.5 mmol/L (3.4-4.6) 05/11/18 11:00 Chloride 102 mmol/L (97-106) 05/11/18 11:00 Carbon Dioxide 31.7 mmol/L (24-32.6) 05/11/18 11:00 Anion Gap 10.8 mmol/L (6.8-13.8) 05/11/18 11:00 BUN 13 mg/dL (3-23) 05/11/18 11:00 Creatinine 0.77 mg/dL (0.4-1.4) 05/11/18 11:00 Est GFR (Non-Af Amer) 94 mL/min (60-130) D 05/11/18 11:00 BUN/Creatinine Ratio 16.9 (9.0-21.6) 05/11/18 11:00 Random Glucose 110 mg/dL (70-110) 05/11/18 11:00 Lactic Acid, Venous 2.2 mmol/L (0.4-2.0) H* 05/11/18 13:50 Calcium 9.3 mg/dL (7.9-10.9) 05/11/18 11:00 Calcium Adj for Albumin 9.3 mg/dL (8.4-10.2) 05/11/18 11:00 Magnesium 1.6 mg/dL (1.2-2.8) 05/11/18 11:00 Total Bilirubin 0.5 mg/dL (0.0-1.1) 05/11/18 11:00 AST 12 U/L (0-48) 05/11/18 11:00 ALT 15 U/L (19-67) L 05/11/18 11:00 Alkaline Phosphatase 94 U/L (50-170) 05/11/18 11:00 Total Protein 7.7 gm/dL (6.2-8.2) 05/11/18 11:00 Albumin 3.6 gm/dl (3.4-5.0) 05/11/18 11:00 Lipase 65 U/L (73-393) L 05/11/18 11:00 Urine Color Yellow 05/11/18 13:00 Urine Appearance Slightly cloudy (CLEAR) 05/11/18 13:00 Urine pH 8.0 pH (5.0-7.0) H 05/11/18 13:00 Ur Specific [place] 1.020 SP.GR. (1.005-1.010) 05/11/18 13:00 Urine Protein Negative mg/dL (NEGATIVE) 05/11/18 13:00 Urine Glucose (UA) Negative mg/dL (NEGATIVE) 05/11/18 13:00 Urine Ketones Negative mg/dL (NEGATIVE) 05/11/18 13:00 Urine Blood Negative /ul (NEGATIVE) 05/11/18 13:00 Urine Nitrate Negative (NEGATIVE) 05/11/18 13:00 Urine Bilirubin Negative mg/dl (NEGATIVE) 05/11/18 13:00 Urine Urobilinogen Normal EU/dl (NORMAL) 05/11/18 13:00 Ur Leukocyte Esterase Negative /ul (NEGATIVE) 05/11/18 13:00 Urine RBC None seen /hpf (0-5) 05/11/18 13:00 Urine WBC 0-5 /hpf (0-5) 05/11/18 13:00 Ur Epithelial Cells 0-5 /hpf (0-5) 05/11/18 13:00 Urine Bacteria 1+ (NONE) H 05/11/18 13:00 Urine Culture Comments No culture indicated 05/11/18 13:00 Assessment/Plan - Narrative Narrative: Chronic medications continued as appropriate. - Assessment/Plan (1) Abdominal pain Assessment: Pain is out of proportion to her exam. Etiology is unclear, she has been worked up for this by multiple physicians without any clear resolution. Gastroparesis is high on my list but pain not affected by food intake. She is allergic to Reglan, will consider macrolide abx to help with gastric emptying. She does not think her pain is from constipation, states she had a bm today. She does not want an enema. Will give her some Benadryl and IBU to help her rest. She is allergic to every other kind of pain medication aside very strong narcotics which I do not feel are warranted at this time. Problem: Acute (2) Intractable vomiting with nausea Assessment: Phenergan and zofrna PRN. Clear liquid diet Problem: Acute Qualifiers: Vomiting type: unspecified Qualified Code(s): R11.2 - Nausea with vomiting , unspecified (3) Shoulder pain, left Assessment: IBU and lidocaine patch ordered. Will see if this helps over night, exam and injury hx again do not make sense. Will check an ESR and RH Factor Problem: Acute
[2018-05-12 06:53] LABS: Hematocrit 31.6 % (37.0-47.0); Hemoglobin 10.5 gm/dL (12.5-16.0); Mean Cell Volume 87.1 fl (78-100); Mean Corpuscular Hemoglobin 28.9 pg (27-31); Mean Corpuscular Hgb Conc 33.2 g/dl (32-36); Neutrophil # 10.2 K/mm3 (1.3-6.0); Neutrophil % 69.9 % (42-75.0); Platelet Count 287 K/mm3 (150-450); Red Blood Count 3.63 M/mm3 (4.2-5.4); Red Cell Distribution Width 13.3 % (11.5-14.0); White Blood Count 14.7 K/mm3 (4.0-10.5)
[2018-05-12] MEDS: PREDNISOLONE 1% OP SCH ×2 (08:37→12:58)
[2018-05-12] MEDS: NEPAFENAC 0.1% OP SCH ×2 (08:37→12:58)
--- NOTE | 2018-05-12 08:44 | DS ---
(1) Intractable vomiting with nausea Problem: Acute Qualifiers: Vomiting type: unspecified Qualified Code(s): R11.2 - Nausea with vomiting , unspecified (2) Abdominal pain Problem: Chronic (3) Shoulder pain, left Problem: Chronic Description of Stay: Laxmi was admitted under observation due to abdominal pain with intractable n/v. This has been an ongoing issue, she has seen multiple specialist for this but no answers for the cause has been determined. She is scheduled to see a GI specialist soon. Abdominal ct showed some retained stool but no other acute abdominal/pelvic issue. She refused an enema while here. After getting some anti -nasuea medications as well as some IBU and benadryl, everything calmed down and she was feeling much better. Her WBC initially was 20 which dropped to 14 on day of discharge. She also had a lactic acid that was 2.2 that dropped to 0.9 overnight. UA was negative. She tolerated PO and her VSS were stable. She was discharged home with orders to follow up with me next week. Procedures Performed: none Results and Findings: Lab Pending Results 05/11/18 11:00: WBC 20.1 H, RBC 4.46, Hgb 13.0, Hct 38.3, MCV 85.9, MCH 29.1, MCHC 33.9, RDW 13.1, Plt Count 352, MPV 10.4, Immature Gran % (Auto) 0.50 H, Immature Gran # (Auto) 0.11 H, Neutrophils % 77.4 H, Lymphocytes % 14.1 L, Monocytes % 7.7, Eosinophils % 0.2, Basophils % 0.1, Nucleated RBC % 0.0, Neutrophils # 15.5 H, Lymphocytes # 2.84, Monocytes # 1.5 H, Eosinophils # 0.1, Absolute Basophils 0.0 05/11/18 11:00: Sodium 141, Plasma Sodium 141, Potassium 3.5, Chloride 102, Carbon Dioxide 31.7, Anion Gap 10.8, BUN 13, Creatinine 0.77, Est GFR (Non-Af Amer) 94 D, BUN/Creatinine Ratio 16.9, Random Glucose 110, Calcium 9.3, Calcium Adj for Albumin 9.3, Magnesium 1.6, Total Bilirubin 0.5, AST 12, ALT 15 L, Alkaline Phosphatase 94, Total Protein 7.7, Albumin 3.6, Lipase 65 L 05/11/18 11:00: Lactic Acid, Venous 2.2 H* 05/11/18 13:00: Urine Color Yellow, Urine Appearance Slightly cloudy, Urine pH 8.0 H, Ur Specific [place] 1.020, Urine Protein Negative, Urine Glucose (UA) Negative, Urine Ketones Negative, Urine Blood Negative, Urine Nitrate Negative, Urine Bilirubin Negative, Urine Urobilinogen Normal, Ur Leukocyte Esterase Negative, Urine RBC None seen, Urine WBC 0-5, Ur Epithelial Cells 0-5, Urine Bacteria 1+ H, Urine Culture Comments No culture indicated 05/11/18 13:50: Lactic Acid, Venous 2.2 H* 05/11/18 22:50: ESR 29 H 05/12/18 06:50: WBC 14.7 H D, RBC 3.63 L, Hgb 10.5 L, Hct 31.6 L, MCV 87.1, MCH 28.9, MCHC 33.2, RDW 13.3, Plt Count 287, MPV 10.0, Immature Gran % (Auto) 0.60 H, Immature Gran # (Auto) 0.09 H, Neutrophils % 69.9, Lymphocytes % 20.9, Monocytes % 7.5, Eosinophils % 1.0, Basophils % 0.1, Nucleated RBC % 0.0, Neutrophils # 10.2 H, Lymphocytes # 3.07, Monocytes # 1.1 H, Eosinophils # 0.1, Absolute Basophils 0.0 05/12/18 06:50: Lactic Acid, Venous 0.9 Discharge Location: Home Disposition: Home self-care Condition: Fair Discharge Activity: Activity as tolerated Discharge Diet: Consistent carbs Complete Home Medications List: Complete Home Medication List: Montelukast Sodium [Singulair] 10 mg PO DAILY 03/27/14 Rosuvastatin Calcium [Crestor] 5 mg PO HS 03/27/14 Spironolactone [Aldactone] 25 mg PO BID 03/27/14 Atenolol [Tenormin] 100 mg PO DAILY 03/10/17 Duloxetine HCl [Cymbalta] 60 mg PO DAILY 03/10/17 Insulin Glargine,Hum.rec.anlog [Lantus Solostar] 10 unit SQ BID 03/10/17 Acetaminophen [Tylenol] 650 mg PO Q4H PRN 06/18/17 Cholecalciferol (Vitamin D3) [Vitamin D3] 2,000 unit PO DAILY 06/18/17 Fluticasone Propionate [Flonase Allergy Relief] 9.9 ml NS DAILY PRN 06/18/17 Potassium Chloride [K-Dur] 40 meq PO DAILY 06/18/17 Pramoxine HCl [Sarna] 222 ml TP PRN 06/18/17 Prednisolone Acetate/Nepafenac [Prednisolone 1%-Nepafenac 0.1%] 3.5 ml OP TID Promethazine HCl [Phenergan (Promethazine)] 25 mg PO QID PRN #10 tab 06/18/17 loratadine 10 mg tablet 10 mg PO DAILY 04/16/18 losartan 50 mg tablet 50 mg PO DAILY 04/16/18 mirtazapine 30 mg tablet 30 mg PO DAILY 04/16/18 ranitidine 150 mg tablet 150 mg PO DAILY 04/16/18 HYDROmorphone HCL [Dilaudid] 2 mg IJ QID PRN #10 vial 05/04/18 Ibuprofen [Motrin] 600 mg PO TID PRN #30 tab 05/04/18 Ondansetron [Zofran Odt] 4 mg PO Q6H PRN #20 tab 05/04/18
[2018-05-12] MEDS ORDERED: SPIRONOLACTONE 25 MG TABLET PO SCH (09:00)
[2018-05-12] MEDS ORDERED: ATENOLOL 100 MG TABLET PO SCH (09:00)
[2018-05-12] MEDS ORDERED: FAMOTIDINE 20 MG TABLET PO SCH (09:00)
[2018-05-12] MEDS ORDERED: DULoxetine HCL 30 MG CAPSULE.SA PO SCH (09:00)
[2018-05-12] MEDS ORDERED: LOSARTAN POTASSIUM 50 MG TABLET PO SCH (09:00)
[2018-05-12] MEDS ORDERED: MONTELUKAST SODIUM 10 MG TABLET PO SCH (09:00)
[2018-05-12 13:13] VITALS: BP 106/51
[2018-05-12] MEDS ORDERED: ROSUVASTATIN CALCIUM 10 MG TABLET PO SCH (21:00)
[2018-05-12] MEDS ORDERED: MIRTAZAPINE 15 MG TABLET PO SCH (21:00)
[2018-05-12] MEDS ORDERED: INSULIN GLARGINE,HUM.REC.ANLOG 100 UNITS/ML VIAL SC SCH (21:00)
== END 2018-05-12 13:19 | disposition home or self-care (01) ==
LOC: ER 10:19 → MS 10:19
PROVIDERS: ADMIT Family Medicine; ATTEND Family Medicine
DX: R10.12 Left upper quadrant pain; K31.84 Gastroparesis; Z79.4 Long term (current) use of insulin; M25.512 Pain in left shoulder; F32.9 Major depressive disorder, single episode, unspecified; M79.7 Fibromyalgia; E66.9 Obesity, unspecified; R11.2 Nausea with vomiting, unspecified; Z68.32 Body mass index [BMI] 32.0-32.9, adult; E11.43 Type 2 diabetes mellitus with diabetic autonomic (poly)neuropathy; D72.829 Elevated white blood cell count, unspecified
CPT/HCPCS: 36415; 74176; 80053; 81001; 83605; 83690; 83735; 85025; 85652; 86431; 87040; 96361; 96374; 96375; 96376; 99284; G0378; J2405

== ENCOUNTER 2018-07-23 07:37 | Observation (INO) ==
[2018-07-23] MEDS ORDERED: NORMAL SALINE 1,000 ML IV ONE (08:03)
[2018-07-23] MEDS ORDERED: PROCHLORPERAZINE EDISYLATE 5 MG/ML VIAL IV ONE (08:04)
[2018-07-23] MEDS ORDERED: PROMETHAZINE HCL 12.5 MG SUPP.RECT RC ONE (08:32)
[2018-07-23 08:36] LABS: Hematocrit 35.7 % (37.0-47.0); Hemoglobin 11.7 gm/dL (12.5-16.0); Mean Cell Volume 87.3 fl (78-100); Mean Corpuscular Hemoglobin 28.6 pg (27-31); Mean Corpuscular Hgb Conc 32.8 g/dl (32-36); Mean Platelet Volume 10.4 fl (8-12.5); Neutrophil # 9.7 K/mm3 (1.3-6.0); Neutrophil % 79.8 % (42-75.0); Platelet Count 326 K/mm3 (150-450); Red Blood Count 4.09 M/mm3 (4.2-5.4); Red Cell Distribution Width 13.8 % (11.5-14.0); White Blood Count 12.2 K/mm3 (4.0-10.5)
[2018-07-23 08:46] LABS: Albumin * 3.5 gm/dl (3.4-5.0); BUN/Creatinine Ratio 12.1 (9.0-21.6); Bilirubin, Total 0.4 mg/dL (0.0-1.1); Ca. Corrected For Albumin 9.8 mg/dL (8.4-10.2); Calcium * 9.7 mg/dL (7.9-10.9); Carbon Dioxide 25.2 mmol/L (24-32.6); Potassium 3.2 mmol/L (3.4-4.6); Total Protein 8.2 gm/dL (6.2-8.2)
[2018-07-23] MEDS ORDERED: ONDANSETRON HCL/PF 2 MG/ML VIAL ONE (09:18)
[2018-07-23] MEDS ORDERED: ONDANSETRON HCL/PF 2 MG/ML VIAL IV ONE (09:24)
[2018-07-23 09:49] LABS: Urine Bilirubin Negative (NEGATIVE); Urine Blood Negative /ul (NEGATIVE); Urine Ketone 5 mg/dL (NEGATIVE); Urine Nitrite Negative (NEGATIVE); Urine Protein Negative (NEGATIVE); Urine Specific Gravity 1.015 SP.GR. (1.005-1.010); Urine Urobilinogen Normal (NORMAL)
[2018-07-23] MEDS ORDERED: POTASSIUM CHLORIDE 20 MEQ TABLET.SA PO ONE (09:58)
[2018-07-23 10:09] LABS: Urine Appearance Clear (CLEAR); Urine Color Yellow; Urine RBC 0-5 /hpf (0-5); Urine WBC 0-5 /hpf (0-5)
[2018-07-23 10:10] LABS: Urine Bacteria TRACE
[2018-07-23] MEDS ORDERED: diphenhydrAMINE HCL 25 MG CAPSULE PO ONE (10:23)
--- NOTE | 2018-07-23 10:39 | ERNOTE ---
Medical Problem HPI - Narrative Date of Service: 07/23/18 - General Chief Complaint: Nausea/Vomiting Time Seen by Provider: 07/23/18 07:58 Source: patient Exam Limitations: no limitations - Immun/Allergies/Home Medications Immunizations: IMMUNIZATION HX Immunizations Up to Date Yes History of Influenza Vaccine No Hx Pneumococcal Vaccination No Allergies/Adverse Reactions: Allergies codeine Allergy (Verified 07/23/18 07:41) enalapril Allergy (Verified 07/23/18 07:41) angioedema Latex, Natural Rubber Allergy (Verified 07/23/18 07:41) Hives lisinopril Allergy (Verified 07/23/18 07:41) Penicillins Allergy (Verified 07/23/18 07:41) salsalate Allergy (Verified 07/23/18 07:41) angioedema spironolactone Allergy (Verified 07/23/18 07:41) pruirtus Sulfa (Sulfonamide Antibiotics) Allergy (Verified 07/23/18 07:41) Tetracyclines Allergy (Verified 07/23/18 07:41) tramadol Allergy (Verified 07/23/18 07:41) throat swelling verapamil [Verapamil] Allergy (Verified 07/23/18 07:41) atorvastatin [From Lipitor] Adverse Reaction (Verified 07/23/18 07:41) myalgia fish oil Adverse Reaction (Verified 07/23/18 07:41) fructose Adverse Reaction (Verified 07/23/18 07:41) Diarrhea lactose Adverse Reaction (Verified 07/23/18 07:41) Diarrhea metformin Adverse Reaction (Verified 07/23/18 07:41) diarrhea metoclopramide [From Reglan] Adverse Reaction (Verified 07/23/18 07:41) Other MRI Dye Allergy (Uncoded 07/23/18 07:41) Home Medications: HOME MEDICATIONS Cholecalciferol (Vitamin D3) [Vitamin D3] 2,000 unit PO DAILY 06/18/17 [Last Taken Unknown] Prednisolone Acetate/Nepafenac [Prednisolone 1%-Nepafenac 0.1%] 1 drop EACHEYE DAILY 06/18/17 [Last Taken Unknown] Ibuprofen [Motrin] 600 mg PO TID PRN #30 tab 05/04/18 [Last Taken Unknown] Insulin Detemir [Levemir] 43 units SC BID 05/12/18 [Last Taken Unknown] blood sugar diagnostic strips See Dose Instructions .ROUTE .MEDSUPPLY #50 ea 06/26/18 [Last Taken Unknown] blood sugar diagnostic strips See Dose Instructions .ROUTE .MEDSUPPLY #270 ea 06/27/18 [Last Taken Unknown] duloxetine 30 mg capsule,delayed release 30 mg PO HS #90 cap 07/03/18 [Last Taken Unknown] duloxetine 60 mg capsule,delayed release 60 mg PO DAILY #90 cap 07/03/18 [Last Taken Unknown] fluticasone 50 mcg/actuation nasal spray,suspension 1 spray SHANNAN DAILY PRN #9.9 g 07/03/18 [Last Taken Unknown] losartan 50 mg tablet 50 mg PO DAILY #90 tab 07/03/18 [Last Taken Unknown] mirtazapine 30 mg tablet 30 mg PO DAILY #90 tab 07/03/18 [Last Taken Unknown] montelukast 10 mg tablet 10 mg PO DAILY #90 tab 07/03/18 [Last Taken Unknown] potassium chloride ER 20 mEq tablet,extended release(part/cryst) 40 meq PO DAILY #180 tab 07/03/18 [Last Taken Unknown] ranitidine 150 mg capsule 150 mg PO BID #180 cap 07/03/18 [Last Taken Unknown] rosuvastatin 5 mg tablet 5 mg PO HS #90 tab 07/03/18 [Last Taken Unknown] Promethazine HCl [Phenergan Suppository] 12.5 mg RC Q6H PRN #7 supp.rect 07/22/18 [Last Taken Unknown] - History of Present History Narrative: Patient presents to the ED for vomiting and nausea. She has a long history of this problem but it seems to be worse after having her gallbladder out. No fe gail. She gets abdominal cramps with this but nothing different than before. No vomiting of blood. Small bowel movements. No acute CP or SOB. She was seen here yesterday and was discharged after fluids feeling better. She took one rectal phenergan and twas feeling better. Did not take another and started having dry heaves again. Timing: intermittent Severity: moderate Modifying Factors - (Improves): Present: other - phenergan suppository Modifying Factors - (Worsens): Present: other - nothign Review of Systems - Review of Systems Constitutional: Absent: fever ENT: Absent: sore throat Respiratory: Absent: shortness of breath Cardiology: Absent: chest pain Gastrointestinal/Abdominal: Present: See HPI Genitourinary: Absent: dysuria Skin: Absent: rash Neurological: Absent: weakness Medical History (Last Reviewed 07/23/18 @ 10:30 by Kareem Benton MD) Anemia Onset Date: ~2005 Depression Onset Date: ~2003 Diabetes mellitus, type II Onset Date: ~1999 Fibromyalgia Onset Date: ~2004 GERD (gastroesophageal reflux disease) Onset Date: ~2011 Hyperlipidemia Onset Date: ~1997 Obesity Onset Date: ~06/20/15 Sleep apnea Onset Date: ~03/2006 7cm of H20 Sarcoidosis Onset Date: ~1997 left eye Surgical History: Surgical History (Last Reviewed 07/23/18 @ 10:30 by Kareem Benton MD) H/O cardiac catheterization Onset Date: ~2003 UHIC done twice and last time showing minimal blockage. H/O colonoscopy Onset Date: ~07/2004 diverticulosis H/O echocardiogram Onset Date: ~02/03/14 LV cavity size normal mild concentric LV hypertrophy normal LVSF moderate di astolic dysfunction normal RV cavity size mild MR TR dilated inferior vena cava mild RA dilation LA is moderately dilated severe pulmonary hypertension. History of cataract surgery Onset Date: ~2000 bilateral History of esophagogastroduodenoscopy (EGD) Onset Date: ~2015 [place], [place] History of knee replacement Onset Date: ~01/21/14 left. [facility] History of partial mastectomy of right breast Onset Date: ~02/08/12 w/ sentinel lymph node bx stage 1 invasive ductal carcinoma Pseudotumor cerebri Onset Date: ~1975 Strabismus Onset Date: ~1954 surgery for this in the left eye Family History: Family History (Last Reviewed 07/23/18 @ 10:30 by Kareem Benton MD) Sister Multiple sclerosis Father Myocardial infarction Mother Diabetes Cancer breast cancer Social History: Preferred Language Central African Smoking Status Never smoker Abuse History No History of abuse Psych History No pertinent hx Alcohol Use none Drug Use none (Last Updated 05/29/18 @ 13:21 by Sascha Mayers DO) No Social History Section defined Physical Exam - Physical Exam General Appearance: Present: alert, no apparent distress Head Exam: Present: normal inspection, no evidence of injury Eye Exam: Normal inspection: bilateral, PERRL: bilateral Ears, Nose, Throat: Present: normal ENT inspection. Absent: dry mucous membranes Neck: Present: normal inspection Respiratory: Present: no respiratory distress, normal breath sounds, no accessory muscle use, lungs clear Cardiovascular/Chest: Present: regular rate, rhythm, normal peripheral pulses Gastrointestinal/Abdominal: Present: normal bowel sounds, nondistended, soft, other - mild diffuse tendenress. No guarding or rebound. No peritoneal signs. Non-surgical exam Back Exam: Absent: CVA tenderness (R), CVA tenderness (L) Extremity Exam: Present: other - no deformity Neurological Exam: Present: alert, no motor/sensory deficits Skin Exam: Present: normal color, warm/dry Progress - Results and Orders Patient's Lab Results:: I have reviewed the patient's lab results. - Vital Signs Patient's Vital Signs:: I have reviewed the patient's vital signs. Vital Signs: Vital Signs 07/23/18 07:38 07/23/18 08:40 07/23/18 09:26 Temperature 36.0 C Pulse Rate 120 H 68 58 L Respiratory Rate 20 16 Blood Pressure 164/83 H 160/67 H O2 Sat by Pulse Oximetry 100 99 07/23/18 10:23 Temperature Pulse Rate 62 Respiratory Rate 18 Blood Pressure 161/70 H O2 Sat by Pulse Oximetry 100 - X-Ray X-Ray #1 X-Ray: abdomen Interpretation: Interp. by me X-ray Comments: I reviewed official radiology report - Progress/Reassessment Chief Complaint: Nausea/Vomiting Progress Note-Subjective: 07/23/18 10:33 Patient received IV fluids and antiemetics. Clinically her exam is non- surgical. Cr wnl and no ketones in urine. The rectal phenergan seemed to help her. I spoke with her PCP Dr Mayers to discuss observation. He would like to see her in the office tomorrow morning at 10:15 and have her take benadryl and phenergan in the mean time. Patient is agreeable to that plan. i discussed warning signs and reasons to return as well as the need for close f/u. 07/23/18 10:36 I do not find any evidence of acute surgical complication or acute life threat at this time. Departure Clinical Impression: Nausea and vomiting - Departure Disposition: Home self-care Condition: Stable Instructions: Nausea, Adult Additional Instructions: Rest. High potassium foods. Take the phenergan you were given in a scheduled manner until you are seen by Dr Mayers at 10:15 am tomorrow. Be at your appointment tomorrow. Dr Mayers would like you to take benadryl as well as he has recommended before. Return here for fever, pain, worsening symptoms or if your condition worsens or changes in any way. Referrals: Sascha Mayers DO [Primary Care Provider] -
[2018-07-23] MEDS ORDERED: MECLIZINE HCL 25 MG TABLET PO ONE (10:57)
[2018-07-23] MEDS ORDERED: PROMETHAZINE HCL 12.5 MG SUPP.RECT RC PRN ×2 (17:03→17:04)
[2018-07-23] MEDS ORDERED: ONDANSETRON HCL/PF 2 MG/ML VIAL IV PRN (17:03)
--- NOTE | 2018-07-23 17:09 | HP ---
Chief Complaint - Chief Complaint Date of Service: 07/23/18 Time of Service: 17:08 Chief Complaint: nausea/vomiting History of Present Illness: Ms. Rivera is a 73 year old female with a PMHx of IDDM, depression, bifromyalgia, GERD, HLD, obesity, sarcoidosis, and sleep apnea who presented to the ER for intractable nausea with vomiting. She had a cholecystectomy 48 hours earlier in [place] without complicationsa. She was pain free and had no adverse events during her stay. She was discharged yesterday morning in good condition. On her way home she developed nausea and vomiting. She went to the ER and was given some pheneregan and placed on dietary restrictions. She continued to vomit overnight and return to the ER this morning. She denies fever, chills. She has no abdominal pain. Her XR in the ER showed moderate constipation which she states she hasn't had a BM "in a long time". She was still dry heaving in her room after being given both phenergan and zofran. Her BP was slightly elevated, she hasn't been able to take any of her medications due to being sick. She had a mildly elevated WBC (12.2) with a left shift but no other abnormal labs or vitals. Medical History (Last Reviewed 07/23/18 @ 12:52 by America Stuart RN) Anemia Onset Date: ~2005 Depression Onset Date: ~2003 Diabetes mellitus, type II Onset Date: ~1999 Fibromyalgia Onset Date: ~2004 GERD (gastroesophageal reflux disease) Onset Date: ~2011 Hyperlipidemia Onset Date: ~1997 Obesity Onset Date: ~06/20/15 Sleep apnea Onset Date: ~03/2006 7cm of H20 Sarcoidosis Onset Date: ~1997 left eye Surgical History: Surgical History (Last Updated 07/23/18 @ 12:54 by America Stuart RN) Hx laparoscopic cholecystectomy Onset Date: ~07/21/18 H/O cardiac catheterization Onset Date: ~2003 [facility]IC done twice and last time showing minimal blockage. H/O colonoscopy Onset Date: ~07/2004 diverticulosis H/O echocardiogram Onset Date: ~02/03/14 LV cavity size normal mild concentric LV hypertrophy normal LVSF moderate diastolic dysfunction normal RV cavity size mild MR TR dilated inferior vena cava mild RA dilation LA is moderately dilated severe pulmonary hypertension. History of cataract surgery Onset Date: ~2000 bilateral History of esophagogastroduodenoscopy (EGD) Onset Date: ~2015 [facility], [place] History of knee replacement Onset Date: ~01/21/14 left. [facility] History of partial mastectomy of right breast Onset Date: ~02/08/12 w/ sentinel lymph node bx stage 1 invasive ductal carcinoma Pseudotumor cerebri Onset Date: ~1975 Strabismus Onset Date: ~1954 surgery for this in the left eye Family History: Family History (Last Reviewed 07/23/18 @ 12:54 by America Stuart RN) Sister Multiple sclerosis Father Myocardial infarction Mother Diabetes Cancer breast cancer Social History: Patient Lives/Resources Home Utilized Occupation retired Preferred Language Zimbabwean Do you have any faith or No cultural preference? Smoking Status Former smoker Have you smoked in the past 12 No months Do you dip or chew tobacco No Abuse History No History of abuse Psych History No pertinent hx Alcohol Use none Drug Use none (Last Updated 05/29/18 @ 13:21 by Sascha Mayers DO) No Social History Section defined Review Of Systems (GEN) - Review of Systems Generalized/Overall Review: Present: Diaphoresis. Absent: Chills, Fever EENTM: Present: No Symptoms Reported Respiratory: Absent: Cough, Shortness of Breath Cardiac: Absent: Chest Pain, Edema, Palpitations, Syncope Abdominal: Present: Nausea, Vomiting, Constipation. Absent: Hematemesis, Abdominal Pain, Melena, Bright blood from rectum Genitourinary: Present: No Symptoms Reported Musculoskeletal: Present: No Symptoms Reported Neurological: Present: No Symptoms Reported Skin: Present: No Symptoms Reported Endocrine: Present: No Symptoms Reported Immunizations: IMMUNIZATION HX Immunizations Up to Date Yes History of Influenza Vaccine No Hx Pneumococcal Vaccination No Allergies/Adverse Reactions: Allergies Allergy/AdvReac Type Severity Reaction Status Date / Time codeine Allergy Verified 07/23/18 12:54 enalapril Allergy angioedema Verified 07/23/18 12:54 Latex, Natural Rubber Allergy Hives Verified 07/23/18 12:54 lisinopril Allergy Verified 07/23/18 12:54 Penicillins Allergy Verified 07/23/18 12:54 salsalate Allergy angioedema Verified 07/23/18 12:54 spironolactone Allergy pruirtus Verified 07/23/18 12:54 Sulfa (Sulfonamide Allergy Verified 07/23/18 12:54 Antibiotics) Tetracyclines Allergy Verified 07/23/18 12:54 tramadol Allergy throat Verified 07/23/18 12:54 swelling verapamil [Verapamil] Allergy Verified 07/23/18 12:54 atorvastatin [From Lipitor] AdvReac myalgia Verified 07/23/18 12:54 fish oil AdvReac Verified 07/23/18 12:54 fructose AdvReac Diarrhea Verified 07/23/18 12:54 lactose AdvReac Diarrhea Verified 07/23/18 12:54 metformin AdvReac diarrhea Verified 07/23/18 12:54 metoclopramide [From Reglan] AdvReac Other Verified 07/23/18 12:54 MRI Dye Allergy Uncoded 07/23/18 12:54 Home Medications: HOME MEDICATIONS Cholecalciferol (Vitamin D3) [Vitamin D3] 2,000 unit PO DAILY 06/18/17 [Last Taken Unknown] Prednisolone Acetate/Nepafenac [Prednisolone 1%-Nepafenac 0.1%] 1 drop EACHEYE DAILY 06/18/17 [Last Taken Unknown] Insulin Detemir [Levemir] 43 units SC BID 05/12/18 [Last Taken Unknown] blood sugar diagnostic strips See Dose Instructions .ROUTE .MEDSUPPLY #50 ea 06/26/18 [Last Taken Unknown] blood sugar diagnostic strips See Dose Instructions .ROUTE .MEDSUPPLY #270 ea 06/27/18 [Last Taken Unknown] duloxetine 30 mg capsule,delayed release 30 mg PO HS #90 cap 07/03/18 [Last Taken Unknown] duloxetine 60 mg capsule,delayed release 60 mg PO DAILY #90 cap 07/03/18 [Last Taken Unknown] fluticasone 50 mcg/actuation nasal spray,suspension 1 spray SHANNAN DAILY PRN #9.9 g 07/03/18 [Last Taken Unknown] losartan 50 mg tablet 50 mg PO DAILY #90 tab 07/03/18 [Last Taken Unknown] mirtazapine 30 mg tablet 30 mg PO DAILY #90 tab 07/03/18 [Last Taken Unknown] montelukast 10 mg tablet 10 mg PO DAILY #90 tab 07/03/18 [Last Taken Unknown] potassium chloride ER 20 mEq tablet,extended release(part/cryst) 40 meq PO DAILY #180 tab 07/03/18 [Last Taken Unknown] ranitidine 150 mg capsule 150 mg PO BID #180 cap 07/03/18 [Last Taken Unknown] rosuvastatin 5 mg tablet 5 mg PO HS #90 tab 07/03/18 [Last Taken Unknown] Promethazine HCl [Phenergan Suppository] 12.5 mg RC Q6H PRN #7 supp.rect 07/22/18 [Last Taken Unknown] Acetaminophen [Tylenol] 500 mg PO Q6H PRN 07/23/18 [Last Taken Unknown] Atenolol [Tenormin] 50 mg PO HS 07/23/18 [Last Taken Unknown] Exam - Exam Vital Signs: Vital Signs - Last Taken Temp 36.7 C 07/23/18 15:18 Pulse 58 L 07/23/18 15:18 Resp 17 07/23/18 15:18 BP 166/55 H 07/23/18 15: Pulse Ox 99 07/23/18 15:18 Constitutional: Present: Alert, Oriented x3, Mild distress ENT Exam: Present: hearing grossly normal, pharynx normal Eye Exam: bilateral eye: normal inspection, PERRL, EOMI Neck: Present: non-tender, full range of motion Back Exam: Present: normal inspection, no CVA tenderness Respiratory: Present: chest non-tender, lungs clear, normal breath sounds, no respiratory distress Cardiovascular/Chest: Present: normal peripheral pulses, no edema, bradycardia. Absent: regular rate, rhythm Abdomen: Present: soft, nontender, nondistended, hypoactive /Rectal: Present: Exam deferred Extremity: Present: non-tender, normal inspection, no pedal edema Skin Exam: Present: normal color, warm/dry, other - incisions from surgery all are C/D/I Appearance: Present: appropriate appearance, no memory impairment Eye contact: Present: cooperative, good eye contact Thoughts: Present: normal thought pattern, normal mood /affect Diagnostic Studies: Abnormal Lab Results 07/23/18 07/23/18 07/23/18 Range/Units 08:20 08:20 09:38 WBC 12.2 H (4.0-10.5) K/mm3 RBC 4.09 L (4.2-5.4) M/mm3 Hgb 11.7 L (12.5-16.0) gm/dL Hct 35.7 L (37.0-47.0) % Immature Gran % (Auto) 0.70 H (0.001-0.429) % Immature Gran # (Auto) 0.08 H (0.000-0.0310) K/mm3 Neutrophils % 79.8 H (42-75.0) % Lymphocytes % 13.0 L (20-51) % Neutrophils # 9.7 H (1.3-6.0) K/mm3 Plasma Sodium 143 H (130-142) mmol/L Potassium 3.2 L (3.4-4.6) mmol/L Anion Gap 17.0 H (6.8-13.8) mmol/L Random Glucose 198 H (70-110) mg/dL ALT 18 L (19-67) U/L Lipase 52 L (73-393) U/L Urine pH 8.0 H (5.0-7.0) pH Ur Epithelial Cells 10-25 H (0-5) /hpf Laboratory Results WBC 12.2 K/mm3 (4.0-10.5) H 07/23/18 08:20 RBC 4.09 M/mm3 (4.2-5.4) L 07/23/18 08:20 Hgb 11.7 gm/dL (12.5-16.0) L 07/23/18 08:20 Hct 35.7 % (37.0-47.0) L 07/23/18 08:20 MCV 87.3 fl (78-100) 07/23/18 08:20 MCH 28.6 pg (27-31) 07/23/18 08:20 MCHC 32.8 g/dl (32-36) 07/23/18 08:20 RDW 13.8 % (11.5-14.0) 07/23/18 08:20 Plt Count 326 K/mm3 (150-450) 07/23/18 08:20 MPV 10.4 fl (8-12.5) 07/23/18 08:20 Immature Gran % (Auto) 0.70 % (0.001-0.429) H 07/23/18 08:20 Immature Gran # (Auto) 0.08 K/mm3 (0.000-0.0310) H 07/23/18 08:20 Neutrophils % 79.8 % (42-75.0) H 07/23/18 08:20 Lymphocytes % 13.0 % (20-51) L 07/23/18 08:20 Monocytes % 6.3 % (0.0-9) 07/23/18 08:20 Eosinophils % 0.0 % (0.0-3.0) 07/23/18 08:20 Basophils % 0.2 % (0.0-1.0) 07/23/18 08:20 Nucleated RBC % 0.0 k/mm3 (0-1) 07/23/18 08:20 Neutrophils # 9.7 K/mm3 (1.3-6.0) H 07/23/18 08:20 Lymphocytes # 1.58 k/mm3 (1.5-3.5) 07/23/18 08:20 Monocytes # 0.8 k/mm3 (0.0-1.0) 07/23/18 08:20 Eosinophils # 0.0 k/mm3 (0.0-0.7) 07/23/18 08:20 Absolute Basophils 0.0 k/mm3 (0.0-0.1) 07/23/18 08:20 Sodium 141 mmol/L (132-142) 07/23/18 08:20 Plasma Sodium 143 mmol/L (130-142) H 07/23/18 08:20 Potassium 3.2 mmol/L (3.4-4.6) L 07/23/18 08:20 Chloride 102 mmol/L (97-106) 07/23/18 08:20 Carbon Dioxide 25.2 mmol/L (24-32.6) 07/23/18 08:20 Anion Gap 17.0 mmol/L (6.8-13.8) H 07/23/18 08:20 BUN 11 mg/dL (3-23) 07/23/18 08:20 Creatinine 0.91 mg/dL (0.4-1.4) 07/23/18 08:20 Est GFR (Non-Af Amer) 78 mL/min (60-130) 07/23/18 08:20 BUN/Creatinine Ratio 12.1 (9.0-21.6) 07/23/18 08:20 Random Glucose 198 mg/dL (70-110) H 07/23/18 08:20 Calcium 9.7 mg/dL (7.9-10.9) 07/23/18 08:20 Calcium Adj for Albumin 9.8 mg/dL (8.4-10.2) 07/23/18 08:20 Total Bilirubin 0.4 mg/dL (0.0-1.1) 07/23/18 08:20 AST 20 U/L (0-48) 07/23/18 08:20 ALT 18 U/L (19-67) L 07/23/18 08:20 Alkaline Phosphatase 84 U/L (50-170) 07/23/18 08:20 Total Protein 8.2 gm/dL (6.2-8.2) 07/23/18 08:20 Albumin 3.5 gm/dl (3.4-5.0) 07/23/18 08:20 Lipase 52 U/L (73-393) L 07/23/18 08:20 Urine Color Yellow 07/23/18 09:38 Urine Appearance Clear (CLEAR) 07/23/18 09:38 Urine pH 8.0 pH (5.0-7.0) H 12 09:38 Ur Specific [place] 1.015 SP.GR. (1.005-1.010) 07/23/18 09:38 Urine Protein Negative mg/dL (NEGATIVE) 07/23/18 09:38 Urine Glucose (UA) Negative mg/dL (NEGATIVE) 07/23/18 09:38 Urine Ketones 5 mg/dL (NEGATIVE) 07/23/18 09:38 Urine Blood Negative /ul (NEGATIVE) 07/23/18 09:38 Urine Nitrate Negative (NEGATIVE) 07/23/18 09:38 Urine Bilirubin Negative mg/dl (NEGATIVE) 07/23/18 09:38 Urine Urobilinogen Normal EU/dl (NORMAL) 07/23/18 09:38 Ur Leukocyte Esterase Negative /ul (NEGATIVE) 07/23/18 09:38 Urine RBC 0-5 /hpf (0-5) 07/23/18 09:38 Urine WBC 0-5 /hpf (0-5) 07/23/18 09:38 Ur Epithelial Cells 10-25 /hpf (0-5) H 07/23/18 09:38 Urine Bacteria Trace (NONE) 07/23/18 09:38 Urine Culture Comments No culture indicated 07/23/18 09:38 Assessment/Plan - Narrative Narrative: Will keep her overnight for observation. Diet will be restricted to clears if the nausea gets better with rectal phenergan or IV zofran. Will start NS @ 125. Restart all her home medications. Will place her on a moderate SSI for her diabetes with accuchecks q ACHS. Her nausea/vomiting may be due to her recent surgery and her bowels just being slow to wake up. Also may be due to her constipation. Will order soap hernandez enemas to be used tonight and in the morning until she is able to have a bowel movement. Will replace her potassium. PRN antihypertensive meds to be given if systolic greater than 160. Nursing staff to call with any questions or concerns. - Assessment/Plan (1) Vomiting following gastrointestinal surgery Problem: Acute (2) Hypokalemia Problem: Acute (3) Intractable vomiting with nausea Problem: Acute Qualifiers: Vomiting type: unspecified Qualified Code(s): R11.2 - Nausea with vomiting, unspecified (4) Hypertension Problem: Chronic Qualifiers: Hypertension type: essential hypertension Qualified Code(s): I10 - Essential (primary) hypertension (5) Diabetes type 2, controlled Problem: Acute
[2018-07-23] MEDS: NORMAL SALINE 1,000 ML IV SCH (17:41)
[2018-07-23] MEDS: ACETAMINOPHEN 500 MG TABLET PO PRN (19:40)
[2018-07-23] MEDS: FAMOTIDINE 20 MG TABLET PO SCH (20:47)
[2018-07-23] MEDS ORDERED: MONTELUKAST SODIUM 10 MG TABLET PO SCH (21:00)
[2018-07-23] MEDS ORDERED: MIRTAZAPINE 15 MG TABLET PO SCH (21:00)
[2018-07-23] MEDS ORDERED: ROSUVASTATIN CALCIUM 10 MG TABLET PO SCH (21:00)
[2018-07-23] MEDS ORDERED: ATENOLOL 50 MG TABLET PO SCH (21:00)
[2018-07-23] MEDS ORDERED: DULoxetine HCL 30 MG CAPSULE.SA PO SCH (21:00)
[2018-07-23] MEDS: INSULIN DETEMIR 100 UNITS/ML VIAL SC SCH (21:02)
[2018-07-23] MEDS: INSULIN LISPRO 100 UNITS/ML VIAL SC SCH (21:03)
[2018-07-24] MEDS: NORMAL SALINE 1,000 ML IV SCH (01:30)
[2018-07-24] MEDS: ACETAMINOPHEN 500 MG TABLET PO PRN ×2 (03:17→09:42)
[2018-07-24] MEDS: INSULIN LISPRO 100 UNITS/ML VIAL SC SCH ×3 (06:48→16:45)
[2018-07-24] MEDS: FAMOTIDINE 20 MG TABLET PO SCH (08:06)
[2018-07-24] MEDS: INSULIN DETEMIR 100 UNITS/ML VIAL SC SCH (08:17)
[2018-07-24] MEDS ORDERED: DULoxetine HCL 30 MG CAPSULE.SA PO SCH (09:00)
[2018-07-24] MEDS ORDERED: LOSARTAN POTASSIUM 50 MG TABLET PO SCH (09:00)
[2018-07-24] MEDS ORDERED: POTASSIUM CHLORIDE 20 MEQ TABLET.SA PO SCH (09:00)
[2018-07-24] MEDS ORDERED: NORMAL SALINE 1,000 ML IV PRN (09:15)
[2018-07-24] MEDS ORDERED: hydrALAZINE HCL 20 MG/ML VIAL IV PRN (12:34)
--- NOTE | 2018-07-24 13:01 | PN ---
Subjective - Date and Time Seen Date: 07/24/18 Time: 13:01 Objective - Vitals Vitals: Last Vital Signs Temp 36.9 C 07/24/18 10:23 Pulse 51 L 07/24/18 10:23 Resp 20 07/24/18 10:23 BP 172/78 H 07/24/18 10:23 Pulse Ox 97 07/24/18 10:23 Assessment/Plan - Problems/Diagnosis (1) Vomiting following gastrointestinal surgery Problem: Acute (2) Hypokalemia Problem: Acute (3) Intractable vomiting with nausea Problem: Acute Qualifiers: Vomiting type: unspecified Qualified Code(s): R11.2 - Nausea with vomiting, unspecified (4) Hypertension Problem: Chronic Qualifiers: Hypertension type: essential hypertension Qualified Code(s): I10 - Essential (primary) hypertension (5) Diabetes type 2, controlled Problem: Acute
[2018-07-24] MEDS ORDERED: ACETAMINOPHEN 500 MG TABLET PO PRN (13:49)
--- NOTE | 2018-07-24 17:47 | DS ---
(1) Vomiting following gastrointestinal surgery Problem: Acute (2) Hypokalemia Problem: Acute (3) Intractable vomiting with nausea Problem: Acute Qualifiers: Vomiting type: unspecified Qualified Code(s): R11.2 - Nausea with vomiting, unspecified (4) Hypertension Problem: Chronic Qualifiers: Hypertension type: essential hypertension Qualified Code(s): I10 - Essential (primary) hypertension (5) Diabetes type 2, controlled Problem: Acute Description of Stay: Ms. Rivera stayed for one night due to intractable nausea and vomiting following recent choleycystectomy in [place]. While here her nausea and vomiting resolved. Her constipation was relieved with enemas. She was able to tolerate a consistent carb meal without any issues. She was restarted on her home medications including potassium which was initially found to be low at 3.2. At one point she was found to have a glucose of 54 which was brought up with apple juice. Again, this happened as she hadn't been able to eat until the evening of the day she was discharged. Her BP was high while here but she was unable to take her medications as directed. She states, and this is verified in her clinic records, that she is well controlled on her home HTN tx plan. No changes were made to these during this stay. Her other vital signs were stable. Her abdomen was pain free while here. Plan on rechecking her K tomorrow in clinic when she comes in for a follow up. Procedures Performed: none Results and Findings: Lab Pending Results 07/23/18 08:20: WBC 12.2 H, RBC 4.09 L, Hgb 11.7 L, Hct 35.7 L, MCV 87.3, MCH 28.6, MCHC 32.8, RDW 13.8, Plt Count 326, MPV 10.4, Immature Gran % (Auto) 0.70 H, Immature Gran # (Auto) 0.08 H, Neutrophils % 79.8 H, Lymphocytes % 13.0 L, Monocytes % 6.3, Eosinophils % 0.0, Basophils % 0.2, Nucleated RBC % 0.0, Neutrophils # 9.7 H, Lymphocytes # 1.58, Monocytes # 0.8, Eosinophils # 0.0, Absolute Basophils 0.0 07/23/18 08:20: Sodium 141, Plasma Sodium 143 H, Potassium 3.2 L, Chloride 102, Carbon Dioxide 25.2, Anion Gap 17.0 H, BUN 11, Creatinine 0.91, Est GFR (Non-Af Amer) 78, BUN/Creatinine Ratio 12.1, Random Glucose 198 H, Calcium 9.7, Calcium Adj for Albumin 9.8, Total Bilirubin 0.4, AST 20, ALT 18 L, Alkaline Phosphatase 84, Total Protein 8.2, Albumin 3.5, Lipase 52 L 07/23/18 09:38: Urine Color Yellow, Urine Appearance Clear, Urine pH 8.0 H, Ur Specific [place] 1.015, Urine Protein Negative, Urine Glucose (UA) Negative, Urine Ketones 5, Urine Blood Negative, Urine Nitrate Negative, Urine Bilirubin Negative, Urine Urobilinogen Normal, Ur Leukocyte Esterase Negative, Urine RBC 0-5, Urine WBC 0-5, Ur Epithelial Cells 10-25 H, Urine Bacteria Trace, Urine Culture Comments No culture indicated Discharge Location: Home Disposition: Home self-care Condition: Stable Discharge Activity: Activity as tolerated Discharge Diet: Consistent carbs Referrals: Sascha Mayers DO [Primary Care Provider] - Additional Patient Instructions (free text): -Please make TCM appointment unless half-way discharge. Thank you! Diandra @ [phone]. Prescriptions (Any new or edited meds): Ondansetron [Zofran Odt] 4 mg PO Q4H PRN #20 tab PRN Reason: Nausea And Vomiting Ondansetron HCl/Pf [Zofran] 4 mg IV Q4H PRN #15 vial PRN Reason: Nausea Complete Home Medications List: Complete Home Medication List: Cholecalciferol (Vitamin D3) [Vitamin D3] 2,000 unit PO DAILY 06/18/17 Prednisolone Acetate/Nepafenac [Prednisolone 1%-Nepafenac 0.1%] 1 drop EACHEYE DAILY 06/18/17 Insulin Detemir [Levemir] 43 units SC BID 05/12/18 blood sugar diagnostic strips See Dose Instructions .ROUTE .MEDSUPPLY #50 ea 06/26/18 blood sugar diagnostic strips See Dose Instructions .ROUTE .MEDSUPPLY #270 ea 06/27/18 duloxetine 30 mg capsule,delayed release 30 mg PO HS #90 cap 07/03/18 duloxetine 60 mg capsule,delayed release 60 mg PO DAILY #90 cap 07/03/18 fluticasone 50 mcg/actuation nasal spray,suspension 1 spray SHANNAN DAILY PRN #9.9 g 07/03/18 losartan 50 mg tablet 50 mg PO DAILY #90 tab 07/03/18 mirtazapine 30 mg tablet 30 mg PO DAILY #90 tab 07/03/18 montelukast 10 mg tablet 10 mg PO DAILY #90 tab 07/03/18 potassium chloride ER 20 mEq tablet,extended release(part/cryst) 40 meq PO DAILY #180 tab 07/03/18 ranitidine 150 mg capsule 150 mg PO BID #180 cap 07/03/18 rosuvastatin 5 mg tablet 5 mg PO HS #90 tab 07/03/18 Promethazine HCl [Phenergan Suppository] 12.5 mg RC Q6H PRN #7 supp.rect 07/22/18 Acetaminophen [Tylenol] 500 mg PO Q6H PRN 07/23/18 Atenolol [Tenormin] 50 mg PO HS 07/23/18 Ondansetron HCl/Pf [Zofran] 4 mg IV Q4H PRN #15 vial 07/24/18 Ondansetron [Zofran Odt] 4 mg PO Q4H PRN #20 tab 07/24/18
[2018-07-24 19:03] VITALS: BP 150/63
== END 2018-07-24 19:20 | disposition home or self-care (01) ==
LOC: ER 07:37 → MS 07:37
PROVIDERS: ADMIT Family Medicine; ATTEND Family Medicine
CPT/HCPCS: 36415; 74019; 74020; 80053; 81001; 83690; 85025; 96361; 96372; 96374; 96375; 99285; G0378; J2405

== ENCOUNTER 2018-10-01 17:59 | Observation (INO) ==
[2018-10-01] MEDS ORDERED: ONDANSETRON HCL/PF 2 MG/ML VIAL IV ONE (18:52)
[2018-10-01 19:28] LABS: Hematocrit 37.2 % (37.0-47.0); Hemoglobin 12.7 gm/dL (12.5-16.0); Mean Cell Volume 84.5 fl (78-100); Mean Corpuscular Hemoglobin 28.9 pg (27-31); White Blood Count 14.8 K/mm3 (4.0-10.5)
[2018-10-01 19:29] LABS: Mean Corpuscular Hgb Conc 34.1 g/dl (32-36); Neutrophil # 10.3 K/mm3 (1.3-6.0); Neutrophil % 69.9 % (42-75.0); Platelet Count 399 K/mm3 (150-450)
[2018-10-01 19:30] LABS: Mean Platelet Volume 11.1 fl (8-12.5)
[2018-10-01 19:42] LABS: Albumin * 3.9 gm/dl (3.4-5.0); Anion Gap 23.8 mmol/L (6.8-13.8); Bilirubin, Total 0.8 mg/dL (0.0-1.1); Ca. Corrected For Albumin 9.8 mg/dL (8.4-10.2); Carbon Dioxide 19.6 mmol/L (24-32.6); Potassium 3.4 mmol/L (3.4-4.6); Total Protein 8.4 gm/dL (6.2-8.2)
[2018-10-01] MEDS ORDERED: NALBUPHINE HCL 20 MG/ML AMPUL IV ONE (20:08)
--- NOTE | 2018-10-01 20:12 | ERNOTE ---
Abdominal HPI - Narrative Date of Service: 10/01/18 - General Chief Complaint: Abdominal Pain Time Seen by Provider: 10/01/18 20:02 Source: patient Exam Limitations: no limitations - Immun/Allergies/Home Medications Immunizatons: IMMUNIZATION HX Immunizations Up to Date Yes History of Influenza Vaccine No Hx Pneumococcal Vaccination No Allergies/Adverse Reactions: Allergies codeine Allergy (Verified 10/01/18 18:13) enalapril Allergy (Verified 10/01/18 18:13) angioedema Latex, Natural Rubber Allergy (Verified 10/01/18 18:13) Hives lisinopril Allergy (Verified 10/01/18 18:13) Penicillins Allergy (Verified 10/01/18 18:13) salsalate Allergy (Verified 10/01/18 18:13) angioedema spironolactone Allergy (Verified 10/01/18 18:13) pruirtus Sulfa (Sulfonamide Antibiotics) Allergy (Verified 10/01/18 18:13) Tetracyclines Allergy (Verified 10/01/18 18:13) tramadol Allergy (Verified 10/01/18 18:13) throat swelling verapamil [Verapamil] Allergy (Verified 10/01/18 18:13) atorvastatin [From Lipitor] Adverse Reaction (Verified 10/01/18 18:13) myalgia fish oil Adverse Reaction (Verified 10/01/18 18:13) swelling fructose Adverse Reaction (Verified 10/01/18 18:13) Diarrhea lactose Adverse Reaction (Verified 10/01/18 18:13) Diarrhea metformin Adverse Reaction (Verified 10/01/18 18:13) diarrhea metoclopramide [From Reglan] Adverse Reaction (Verified 10/01/18 18:13) Other Jerking MRI Dye Allergy (Uncoded 10/01/18 18:13) Anaphylaxis Home Medications: HOME MEDICATIONS Cholecalciferol (Vitamin D3) [Vitamin D3] 2,000 unit PO DAILY 06/18/17 [Last Taken Unknown] Prednisolone Acetate/Nepafenac [Prednisolone 1%-Nepafenac 0.1%] 1 drp EACHEYE DAILY 06/18/17 [Last Taken Unknown] Insulin Detemir [Levemir] 43 units SC BID 05/12/18 [Last Taken Unknown] duloxetine 30 mg capsule,delayed release 30 mg PO HS #90 cap 07/03/18 [Last Taken Unknown] duloxetine 60 mg capsule,delayed release 60 mg PO DAILY #90 cap 07/03/18 [Last Taken Unknown] fluticasone 50 mcg/actuation nasal spray,suspension 1 spray SHANNAN DAILY PRN #9.9 g 07/03/18 [Last Taken Unknown] losartan 50 mg tablet 50 mg PO DAILY #90 tab 07/03/18 [Last Taken Unknown] montelukast 10 mg tablet 10 mg PO DAILY #90 tab 07/03/18 [Last Taken Unknown] potassium chloride ER 20 mEq tablet,extended release(part/cryst) 40 meq PO DAILY #180 tab 07/03/18 [Last Taken Unknown] rosuvastatin 5 mg tablet 5 mg PO HS #90 tab 07/03/18 [Last Taken Unknown] Acetaminophen [Tylenol] 500 mg PO Q6H PRN 07/23/18 [Last Taken Unknown] Atenolol [Tenormin] 50 mg PO HS 07/23/18 [Last Taken Unknown] Blood Sugar Diagnostic [Contour Test Strip] 0 ea .ROUTE .MEDSUPPLY 08/07/18 [Last Taken Unknown] Blood Sugar Diagnostic [Contour Test Strip] 0 ea .ROUTE .MEDSUPPLY 08/07/18 [Last Taken Unknown] Ondansetron [Zofran Odt] 4 mg PO Q6H PRN 09/30/18 [Last Taken 09/30/18 04:00] Ranitidine HCl [Zantac] 150 mg PO BID 09/30/18 [Last Taken Unknown] - Pain Score Pain Score #1 Pain Score: 10 Abdominal Pain Onset Location: epigastric Pain Radiation: chest, back - History of Present Illness Narrative: The patient is a 73 year old female who presents for epigastric and left anterior chest pain which has been present since yesterday evening. There are associated symptoms of vomiting and radiation of pain to left chest around to back. The patient reports epigastric and left atnerior chest pain, 10/10. There are no alleviating factors. There are no aggravating factors. Previous treatments have included: none. The past medical history includes: anemia, depression, DM, GERD, fibromyalgia, HLD, sleep apnea and gastroparesis. The social history is positive for former smoker. The patient has had no ill contacts. Patient states she was attempting to get in with her primary care provider but has been unable to obtain appointment. Timing: constant Quality: sharpness Review of Systems - Review of Systems Constitutional: Present: fatigue. Absent: fever EYE: Present: no symptoms reported ENT: Present: no symptoms reported. Absent: ear pain, nasal drainage, sore throat Respiratory: Present: shortness of breath, cough Cardiology: Present: chest pain Gastrointestinal/Abdominal: Present: nausea, vomiting, constipation. Absent: diarrhea, abdominal pain Genitourinary: Present: no symptoms reported. Absent: dysuria Musculoskeletal: Present: back pain Skin: Present: no symptoms reported. Absent: rash Neurological: Present: no symptoms reported Endocrine: Present: no symptoms reported Hematologic/Lymphatic: Present: no symptoms reported Psych: Present: no symptoms reported All Other Systems: All systems neg except as marked Medical History (Last Reviewed 10/01/18 @ 20:59 by ARMIN Stoddard) Bilateral lower extremity edema Onset Date: Unknown Diverticulosis of colon without diverticulitis Onset Date: Unknown Gastroparesis Helicobacter pylori (H. pylori) Allergic rhinitis Onset Date: Unknown Anemia Onset Date: ~2005 Depression Onset Date: ~2003 Diabetes mellitus, type II Onset Date: ~1999 Fibromyalgia Onset Date: ~2004 GERD (gastroesophageal reflux disease) Onset Date: ~2011 Hyperlipidemia Onset Date: ~1997 Obesity Onset Date: ~06/20/15 Sleep apnea Onset Date: ~03/2006 7cm of H20 Sarcoidosis Onset Date: ~1997 left eye Surgical History: Surgical History (Last Reviewed 10/01/18 @ 20:59 by ARMIN Stoddard) Hx laparoscopic cholecystectomy Onset Date: ~07/21/18 H/O cardiac catheterization Onset Date: ~2003 [facility] done twice and last time showing minimal blockage. H/O colonoscopy Onset Date: ~07/2004 diverticulosis H/O echocardiogram Onset Date: ~02/03/14 LV cavity size normal mild concentric LV hypertrophy normal LVSF moderate diastolic dysfunction normal RV cavity size mild MR TR dilated inferior vena cava mild RA dilation LA is moderately dilated severe pulmonary hypertension. History of cataract surgery Onset Date: ~2000 bilateral History of esophagogastroduodenoscopy (EGD) Onset Date: ~2015 [place], [place] History of knee replacement Onset Date: ~01/21/14 left. [facility] History of partial mastectomy of right breast Onset Date: ~02/08/12 w/ sentinel lymph node bx stage 1 invasive ductal carcinoma Pseudotumor cerebri Onset Date: ~1975 Strabismus Onset Date: ~1954 surgery for this in the left eye Family History: Family History (Last Reviewed 10/01/18 @ 20:59 by ARMIN Stoddard) Sister Multiple sclerosis Father Myocardial infarction Mother Diabetes Cancer breast cancer Social History: Preferred Language Wol[place] Do you have any methodist or No cultural preference? Smoking Status Former smoker Abuse History No History of abuse Psych History No pertinent hx Alcohol Use none Drug Use none (Last Updated 09/10/18 @ 12:11 by Dorina Whalen MD) No Social History Section defined Physical Exam - Physical Exam General Appearance: Present: alert, moderate distress, anxious, crying, other - restless Head Exam: Present: normal inspection, no evidence of injury Eye Exam: Normal inspection: bilateral Ears, Nose, Throat: Present: dry mucous membranes Neck: Present: normal inspection Respiratory: Present: no respiratory distress, normal breath sounds, no accessory muscle use, lungs clear, chest tenderness - sternal and left anterior chest Cardiovascular/Chest: Present: regular rate, rhythm, no murmur Gastrointestinal/Abdominal: Present: nontender, nondistended, soft, no organomegaly, abnormal bowel sounds - hyperactive Neurological Exam: Present: alert, oriented Skin Exam: Present: normal color, warm/dry Progress - Date and Time Seen: Date and Time: 10/01/18 21:11 Aspirin held due to salicylate allergy with angioedema response. 10/01/18 21:38 Patient pain 5/10 after Nitro SL. Will repeat. 10/01/18 21:39 Discussed case with . Will admit for observation chest pain due to improvement to chest pain after Nitro as well as alteration to trop from normal level, remains within a normal level. 10/01/18 21:49 Notified [facility] pending on admission. - Results and Orders Patient's Lab Results:: I have reviewed the patient's lab results. - Vital Signs Patient's Vital Signs:: I have reviewed the patient's vital signs. Vital Signs: Vital Signs 10/01/18 18:03 10/01/18 18:37 10/01/18 18:57 Temperature 37.0 C Pulse Rate 85 85 84 Respiratory Rate 28 H 22 H 24 H Blood Pressure 132/105 H 126/71 140/45 O2 Sat by Pulse Oximetry 97 100 100 10/01/18 19:12 Temperature 36.6 C Pulse Rate 72 Respiratory Rate 24 H Blood Pressure 149/89 O2 Sat by Pulse Oximetry 99 - EKG EKG #1 EKG: NSR, other - intermittent PAC's EKG read: Reviewed by me - X-Ray X-Ray #1 X-Ray: chest Interpretation: Reviewed by me X-ray Comments: No acute cardiopulmonary abnormality. Hyperinflation. Reviewed with . X-Ray #2 X-Ray: abdomen Interpretation: Reviewed by me X-ray Comments: Non-specific bowel gas pattern. Retained stool throughout colon. Reviewed with . - Progress/Reassessment Chief Complaint: Abdominal Pain Progress:: Improved Departure Clinical Impression: Chest pain Qualifiers: Chest pain type: unspecified Qualified Code(s): R07.9 - Chest pain, unspecified Intractable vomiting with nausea Qualifiers: Vomiting type: unspecified Qualified Code(s): R11.2 - Nausea with vomiting, unspecified - Departure Disposition: Still a patient Condition: Good
[2018-10-01] MEDS ORDERED: NITROGLYCERIN 0.4 MG/TAB BTL SL ONE ×2 (21:09→21:34)
[2018-10-01 21:28] LABS: Urine Bilirubin 3 mg/dl (NEGATIVE); Urine Blood Negative /ul (NEGATIVE); Urine Ketone 50 mg/dL (NEGATIVE); Urine Nitrite Negative (NEGATIVE); Urine Protein 15 mg/dL (NEGATIVE); Urine Specific Gravity >=1.030 SP.GR. (1.005-1.010); Urine Urobilinogen Normal (NORMAL); Urine pH 5.5 pH (5.0-7.0)
[2018-10-01 21:44] LABS: Urine Appearance Cloudy (CLEAR); Urine Bacteria 3+; Urine Color Brown; Urine Mucus Few - 1+; Urine RBC None Seen /hpf (0-5); Urine WBC TRACE /hpf (0-5)
[2018-10-01] MEDS: NITROGLYCERIN 0.4 MG/TAB BTL SL PRN ×2 (22:15→22:26)
[2018-10-02] MEDS: MORPHINE SULFATE 2 MG/ML DISP.SYRIN IV PRN ×3 (00:15→08:39)
[2018-10-02] MEDS: POLYETHYLENE GLYCOL 3350 119 GM BTL PO SCH ×2 (00:26→08:42)
--- NOTE | 2018-10-02 11:30 | HP ---
Chief Complaint - Chief Complaint Date of Service: 10/02/18 Time of Service: 11:17 Chief Complaint: Left-sided chest pain, nausea and vomiting History of Present Illness: This is with a past medical history ofa 73-year-old female gastroparesis, diabetes mellitus type 2, fibromyalgia, GERD, hyperlipidemia, obesity, sleep apnea, sarcoidosis who presents with complaints of left-sided chest pain radiating to her back. She states she has had this pain for a long time but nobody seems to know why she has it. Onset was approximately 1 year agopain is intermittent but is rated 10 out of 10 at its worst. Pain improves with morphine or nitroglycerin. She denies any trauma. She also states she has nausea and vomiting that began about 4 years ago. She has seen a shirt ironer who diagnosed her with gastroparesis and instructed her to eat small meals. He had some prescribed Reglan for her which was helping but she was not able to tolerate it. She had her gallbladder removed because her shirt ironer thought this may be the reason she is having pain but it did not help. Her left-sided chest pain actually worsened O after her gallbladder was removed in July 2018. She was admitted for observation for chest pain and intractable vomiting. She states she has not had a bowel movement since 6 days ago. Troponins have been downtrending and EKG on admission was unremarkable. Medical History (Last Reviewed 10/01/18 @ 22:39 by Diandra Pinedo RN) Bilateral lower extremity edema Onset Date: Unknown Diverticulosis of colon without diverticulitis Onset Date: Unknown Gastroparesis Helicobacter pylori (H. pylori) Allergic rhinitis Onset Date: Unknown Anemia Onset Date: ~2005 Depression Onset Date: ~2003 Diabetes mellitus, type II Onset Date: ~1999 Fibromyalgia Onset Date: ~2004 GERD (gastroesophageal reflux disease) Onset Date: ~2011 Hyperlipidemia Onset Date: ~1997 Obesity Onset Date: ~06/20/15 Sleep apnea Onset Date: ~03/2006 7cm of H20 Sarcoidosis Onset Date: ~1997 Both eyes Surgical History: Surgical History (Last Reviewed 10/01/18 @ 22:39 by Diandra Pinedo RN) Hx laparoscopic cholecystectomy Onset Date: ~07/21/18 H/O cardiac catheterization Onset Date: ~2003 [facility] done twice and last time showing minimal blockage. H/O colonoscopy Onset Date: ~07/2004 diverticulosis H/O echocardiogram Onset Date: ~02/03/14 LV cavity size normal mild concentric LV hypertrophy normal LVSF moderate diastolic dysfunction normal RV cavity size mild MR TR dilated inferior vena cava mild RA dilation LA is moderately dilated severe pulmonary hypertension. History of cataract surgery Onset Date: ~2000 bilateral History of esophagogastroduodenoscopy (EGD) Onset Date: ~2015 [facility] [place], [place] History of knee replacement Onset Date: ~01/21/14 left. [facility] History of partial mastectomy of right breast Onset Date: ~02/08/12 w/ sentinel lymph node bx stage 1 invasive ductal carcinoma Pseudotumor cerebri Onset Date: ~1975 Strabismus Onset Date: ~1954 surgery for this in the left eye Family History: Family History (Last Reviewed 10/01/18 @ 22:39 by Diandra Pinedo RN) Sister Multiple sclerosis Father Myocardial infarction Mother Diabetes Cancer breast cancer Social History: Patient Lives/Resources Home Utilized Occupation Retired Preferred Language Kiswahili Do you have any rastafarian or No cultural preference? Smoking Status Former smoker Have you smoked in the past 12 No months Abuse History No History of abuse Psych History No pertinent hx Alcohol Use none Drug Use none (Last Updated 09/10/18 @ 12:11 by Dorina Whalen MD) No Social History Section defined Review Of Systems (GEN) - Review of Systems Generalized/Overall Review: Absent: Fever Respiratory: Absent: Shortness of Breath Cardiac: Absent: Chest Pain Abdominal: Absent: Nausea, Vomiting, Abdominal Pain Misc: All systems neg except as marked Immunizations: IMMUNIZATION HX Immunizations Up to Date Yes History of Influenza Vaccine No Hx Pneumococcal Vaccination No Allergies/Adverse Reactions: Allergies Allergy/AdvReac Type Severity Reaction Status Date / Time codeine Allergy Verified 10/01/18 18:13 enalapril Allergy angioedema Verified 10/01/18 18:13 Latex, Natural Rubber Allergy Hives Verified 10/01/18 18:13 lisinopril Allergy Verified 10/01/18 18:13 Penicillins Allergy Verified 10/01/18 18:13 salsalate Allergy angioedema Verified 10/01/18 18:13 spironolactone Allergy pruirtus Verified 10/01/18 18:13 Sulfa (Sulfonamide Allergy Verified 10/01/18 18:13 Antibiotics) Tetracyclines Allergy Verified 10/01/18 18:13 tramadol Allergy throat Verified 10/01/18 18:13 swelling verapamil [Verapamil] Allergy Verified 10/01/18 18:13 atorvastatin [From Lipitor] AdvReac myalgia Verified 10/01/18 18:13 fish oil AdvReac swelling Verified 10/01/18 18:13 fructose AdvReac Diarrhea Verified 10/01/18 18:13 lactose AdvReac Diarrhea Verified 10/01/18 18:13 metformin AdvReac diarrhea Verified 10/01/18 18:13 metoclopramide [From Reglan] AdvReac Other Verified 10/01/18 18:13 MRI Dye Allergy Anaphylaxis Uncoded 10/01/18 18:13 Home Medications: HOME MEDICATIONS Cholecalciferol (Vitamin D3) [Vitamin D3] 2,000 unit PO DAILY 06/18/17 [Last Taken Unknown] Prednisolone Acetate/Nepafenac [Prednisolone 1%-Nepafenac 0.1%] 1 drp EACHEYE DAILY 06/18/17 [Last Taken Unknown] Insulin Detemir [Levemir] 43 units SC BID 05/12/18 [Last Taken Unknown] duloxetine 30 mg capsule,delayed release 30 mg PO HS #90 cap 07/03/18 [Last Taken Unknown] duloxetine 60 mg capsule,delayed release 60 mg PO DAILY #90 cap 07/03/18 [Last Taken Unknown] fluticasone 50 mcg/actuation nasal spray,suspension 1 spray SHANNAN DAILY PRN #9.9 g 07/03/18 [Last Taken Unknown] losartan 50 mg tablet 50 mg PO DAILY #90 tab 07/03/18 [Last Taken Unknown] montelukast 10 mg tablet 10 mg PO DAILY #90 tab 07/03/18 [Last Taken Unknown] potassium chloride ER 20 mEq tablet,extended release(part/cryst) 40 meq PO DAILY #180 tab 07/03/18 [Last Taken Unknown] rosuvastatin 5 mg tablet 5 mg PO HS #90 tab 07/03/18 [Last Taken Unknown] Acetaminophen [Tylenol] 500 mg PO Q6H PRN 07/23/18 [Last Taken Unknown] Atenolol [Tenormin] 50 mg PO HS 07/23/18 [Last Taken Unknown] Blood Sugar Diagnostic [Contour Test Strip] 0 ea .ROUTE .MEDSUPPLY 08/07/18 [Last Taken Unknown] Blood Sugar Diagnostic [Contour Test Strip] 0 ea .ROUTE .MEDSUPPLY 08/07/18 [Last Taken Unknown] Ondansetron [Zofran Odt] 4 mg PO Q6H PRN 09/30/18 [Last Taken 09/30/18 04:00] Ranitidine HCl [Zantac] 150 mg PO BID 09/30/18 [Last Taken Unknown] Exam - Exam Vital Signs: Vital Signs - Last Taken Temp 36.5 C 10/02/18 10:52 Pulse 62 10/02/18 10:52 Resp 18 10/02/18 10:52 BP 124/58 10/02/18 10:52 Pulse Ox 99 10/02/18 10:52 Constitutional: Present: Alert, Cooperative, Well developed, Well nourished, No distress ENT Exam: Present: hearing grossly normal Neck: Present: non-tender. Absent: lymphadenopathy (R), lymphadenopathy (L) Back Exam: Present: normal inspection. Absent: no vertebral tenderness Respiratory: Present: lungs clear, no accessory muscle use, other - Left chest wall tender to palpation especially on the lower left peristernal region and under the breast. Cardiovascular/Chest: Present: normal peripheral pulses Abdomen: Present: Normal bowel sounds, soft, nontender Extremity: Present: non-tender, no pedal edema Skin Exam: Present: normal color, warm/dry Lymphatic: Present: other - No cervical adenopathy Neurologic: Present: normal mood/affect Appearance: Present: appropriate appearance Eye contact: Present: cooperative Thoughts: Present: normal thought pattern Diagnostic Studies: Abnormal Lab Results 10/01/18 10/01/18 10/01/18 Range/Units 19:00 19:00 21:35 WBC 14.8 H D (4.0-10.5) K/mm3 RDW 15.0 H (11.5-14.0) % Immature Gran # (Auto) 0.05 H (0.000-0.0310) K/mm3 Neutrophils # 10.3 H (1.3-6.0) K/mm3 Monocytes # 1.2 H (0.0-1.0) k/mm3 Absolute Basophils 0.4 H (0.0-0.1) k/mm3 Carbon Dioxide 19.6 L (24-32.6) mmol/L Anion Gap 23.8 H (6.8-13.8) mmol/L Random Glucose 138 H (70-110) mg/dL ALT 11 L (19-67) U/L Total Protein 8.4 H (6.2-8.2) gm/dL Lipase 63 L (73-393) U/L Urine Protein 15 H (NEGATIVE) mg/dL Urine Bilirubin 3 H (NEGATIVE) mg/dl Ur Leukocyte Esterase 25 H (NEGATIVE) /ul Urine WBC Trace H (0-5) /hpf Ur Epithelial Cells 10-25 H (0-5) /hpf Urine Bacteria 3+ H (NONE) Urine Mucus Few - 1+ H (NONE) Laboratory Results WBC 14.8 K/mm3 (4.0-10.5) H D 10/01/18 19:00 RBC 4.40 M/mm3 (4.2-5.4) 10/01/18 19:00 Hgb 12.7 gm/dL (12.5-16.0) 10/01/18 19:00 Hct 37.2 % (37.0-47.0) 10/01/18 19:00 MCV 84.5 fl (78-100) 10/01/18 19: MCH 28.9 pg (27-31) 10/01/18 19:00 MCHC 34.1 g/dl (32-36) 10/01/18 19:00 RDW 15.0 % (11.5-14.0) H 10/01/18 19:00 Plt Count 399 K/mm3 (150-450) 10/01/18 19:00 MPV 11.1 fl (8-12.5) 10/01/18 19:00 Immature Gran % (Auto) 0.30 % (0.001-0.429) 10/01/18 19:00 Immature Gran # (Auto) 0.05 K/mm3 (0.000-0.0310) H 10/01/18 19:00 Neutrophils % 69.9 % (42-75.0) 10/01/18 19:00 Lymphocytes % 21.2 % (20-51) 10/01/18 19: Monocytes % 7.9 % (0.0-9) 10/01/18 19:00 Eosinophils % 0.3 % (0.0-3.0) 10/01/18 19:00 Basophils % 0.4 % (0.0-1.0) 10/01/18 19: Nucleated RBC % 0.0 k/mm3 (0-1) 10/01/18 19:00 Neutrophils # 10.3 K/mm3 (1.3-6.0) H 10/01/18 19:00 Lymphocytes # 3.13 k/mm3 (1.5-3.5) 10/01/18 19:00 Monocytes # 1.2 k/mm3 (0.0-1.0) H 10/01/18 19:00 Eosinophils # 0.3 k/mm3 (0.0-0.7) 10/01/18 19:00 Absolute Basophils 0.4 k/mm3 (0.0-0.1) H 10/01/18 19:00 Sodium 140 mmol/L (132-142) 10/01/18 19:00 Plasma Sodium 141 mmol/L (130-142) 10/01/18 19:00 Potassium 3.4 mmol/L (3.4-4.6) 10/01/18 19:00 Chloride 100 mmol/L (97-106) 10/01/18 19:00 Carbon Dioxide 19.6 mmol/L (24-32.6) L 10/01/18 19:00 Anion Gap 23.8 mmol/L (6.8-13.8) H 10/01/18 19:00 BUN 8 mg/dL (3-23) 10/01/18 19:00 Creatinine 0.73 mg/dL (0.4-1.4) 10/01/18 19:00 Est GFR (Non-Af Amer) 100 mL/min (60-130) 10/01/18 19:00 BUN/Creatinine Ratio 11.0 (9.0-21.6) 10/01/18 19:00 Random Glucose 138 mg/dL (70-110) H 10/01/18 19:00 Calcium 10.0 mg/dL (7.9-10.9) 10/01/18 19:00 Calcium Adj for Albumin 9.8 mg/dL (8.4-10.2) 10/01/18 19:00 Total Bilirubin 0.8 mg/dL (0.0-1.1) 10/01/18 19:00 AST 20 U/L (0-48) 10/01/18 19:00 ALT 11 U/L (19-67) L 10/01/18 19:00 Alkaline Phosphatase 80 U/L (50-170) 10/01/18 19:00 Troponin I Less than 0.017 ng/mL (0.00-0.10) 10/02/18 00:10 Total Protein 8.4 gm/dL (6.2-8.2) H 10/01/18 19:00 Albumin 3.9 gm/dl (3.4-5.0) 10/01/18 19:00 Amylase 32 U/L (25-115) 10/01/18 19:00 Lipase 63 U/L (73-393) L 10/01/18 19:00 Urine Color Brown 10/01/18 21:35 Urine Appearance Cloudy (CLEAR) 10/01/18 21:35 Urine pH 5.5 pH (5.0-7.0) 10/01/18 21:35 Ur Specific [place] >=1.030 SP.GR. (1.005-1.010) 10/01/18 21:35 Urine Protein 15 mg/dL (NEGATIVE) H 10/01/18 21:35 Urine Glucose (UA) Negative mg/dL (NEGATIVE) 10/01/18 21:35 Urine Ketones 50 mg/dL (NEGATIVE) 10/01/18 21:35 Urine Blood Negative /ul (NEGATIVE) 10/01/18 21:35 Urine Nitrate Negative (NEGATIVE) 10/01/18 21:35 Urine Bilirubin 3 mg/dl (NEGATIVE) H 10/01/18 21:35 Urine Ictotest Negative (NEGATIVE) 10/01/18 21:35 Prot Sulfosalicylic Acd Negative mg/dL (0) 10/01/18 21:35 Urine Urobilinogen Normal EU/dl (NORMAL) 10/01/18 21:35 Ur Leukocyte Esterase 25 /ul (NEGATIVE) H 10/01/18 21:35 Urine RBC None seen /hpf (0-5) 10/01/18 21:35 Urine WBC Trace /hpf (0-5) H 10/01/18 21:35 Ur Epithelial Cells 10-25 /hpf (0-5) H 10/01/18 21:35 Urine Bacteria 3+ (NONE) H 10/01/18 21:35 Urine Mucus Few - 1+ (NONE) H 10/01/18 21:35 Urine Culture Comments Culture to follow 10/01/18 21:35 Assessment/Plan - Narrative Narrative: 73-year-old female presenting with left-sided chest pain radiating to her back and intractable vomiting. - Assessment/Plan (1) Hypertension Assessment: Stable no changes to medications Problem: Chronic Qualifiers: (2) Diabetes type 2, controlled Assessment: Stable no changes to medications. Problem: Acute Qualifiers: Diabetes mellitus middle or intermediate school principal insulin use: without middle or intermediate school principal use (3) Intractable vomiting Assessment: She has not vomited since she has been here. She is tolerating liquids at this time. We will attempt to advance her diet. Problem: Acute (4) Chest pain Assessment: Chest pain has resolved however it is reproducible with palpation of the left chest wall. Her symptoms are likely secondary to muscular skeletal origin. I will consider starting her on a muscle relaxant. Problem: Acute Qualifiers: Chest pain type: unspecified Qualified Code(s): R07.9 - Chest pain, unspecified (5) Constipation Assessment: Continue with bowel regimen if she would like we can give her a suppository or enema while she is here. Problem: Acute Qualifiers: Constipation type: slow transit constipation Qualified Code(s): K59.01 - Slow transit constipation
[2018-10-02] MEDS ORDERED: CYCLOBENZAPRINE HCL 10 MG TABLET PO PRN (11:32)
[2018-10-02] MEDS ORDERED: SENNOSIDES 8.6 MG TABLET PO PRN (11:35)
[2018-10-02] MEDS ORDERED: DOCUSATE SODIUM 100 MG CAPSULE PO SCH (11:45)
--- NOTE | 2018-10-02 12:02 | DS ---
(1) Hypertension Diagnosis(s): Stable no changes to medications. Problem: Chronic Qualifiers: (2) Diabetes type 2, controlled Diagnosis(s): Stable, no changes to medications. Problem: Acute Qualifiers: Diabetes mellitus jail insulin use: with jail use Diabetes mellitus complication status: with neurologic complications Diabetes mellitus complication detail: with other neurological complication Qualified Code(s): E11.49 - Type 2 diabetes mellitus with other diabetic neurological complication; Z79.4 - terminal carman (current) use of insulin (3) Intractable vomiting Diagnosis(s): Resolved, tolerating diet. Problem: Resolved Qualifiers: Vomiting type: cyclical vomiting Nausea presence: with nausea Qualified Code(s): G43.A1 - Cyclical vomiting, intractable (4) Chest pain Diagnosis(s): Likely musculoskeletal in origin. Improved with morphine. Start cyclobenzaprine. Problem: Resolved Qualifiers: Chest pain type: intercostal pain Qualified Code(s): R07.82 - Intercostal pain (5) Constipation Diagnosis(s): Start bowel regimen with dulcolax suppository. Problem: Acute Qualifiers: Constipation type: slow transit constipation Qualified Code(s): K59.01 - Slow transit constipation Description of Stay: This is [id number] female with a past medical history of gastroparesis, diabetes mellitus type 2, fibromyalgia, GERD, hyperlipidemia, obesity, sleep apnea, sarcoidosis who presents with complaints of left-sided chest pain radiating to her back. Pain is chronic for over one year. Nausea and vomiting for 4 years. Cardiac workup is negative. Chest pain appears to be musculoskeletal in origin. Start cyclobenzaprine. Vomiting has resolved, tolerating diet. She has been constipated for the past 6 days. Add colace to bowel regimen. She can take Ibuprofen or tylenol as needed for pain when discharged home. Follow up with PCP in 1 week of discharge. Procedures Performed: none Results and Findings: Lab Pending Results 10/01/18 19:00: WBC 14.8 H D, RBC 4.40, Hgb 12.7, Hct 37.2, MCV 84.5, MCH 28.9, MCHC 34.1, RDW 15.0 H, Plt Count 399, MPV 11.1, Immature Gran % (Auto) 0.30, Immature Gran # (Auto) 0.05 H, Neutrophils % 69.9, Lymphocytes % 21.2, Monocytes % 7.9, Eosinophils % 0.3, Basophils % 0.4, Nucleated RBC % 0.0, Neutrophils # 10.3 H, Lymphocytes # 3.13, Monocytes # 1.2 H, Eosinophils # 0.3, Absolute Basophils 0.4 H 10/01/18 19:00: Sodium 140, Plasma Sodium 141, Potassium 3.4, Chloride 100, Carbon Dioxide 19.6 L, Anion Gap 23.8 H, BUN 8, Creatinine 0.73, Est GFR (Non-Af Amer) 100, BUN/Creatinine Ratio 11.0, Random Glucose 138 H, Calcium 10.0, Calciu m Adj for Albumin 9.8, Total Bilirubin 0.8, AST 20, ALT 11 L, Alkaline Phosphatase 80, Total Protein 8.4 H, Albumin 3.9, Amylase 32, Lipase 63 L 10/01/18 19:00: Troponin I 0.030 10/01/18 21:35: Urine Color Brown, Urine Appearance Cloudy, Urine pH 5.5, Ur Specific [place] >=1.030, Urine Protein 15 H, Urine Glucose (UA) Negative, Urine Ketones 50, Urine Blood Negative, Urine Nitrate Negative, Urine Bilirubin 3 H, Urine Ictotest Negative, Prot Sulfosalicylic Acd Negative, Urine Urobilinogen Normal, Ur Leukocyte Esterase 25 H, Urine RBC None seen, Urine WBC Trace H, Ur Epithelial Cells 10-25 H, Urine Bacteria 3+ H, Urine Mucus Few - 1+ H, Urine Culture Comments Culture to follow 10/02/18 00:10: Troponin I Less than 0.017 Discharge Location: Home Disposition: Home self-care Condition: Good Discharge Activity: Activity as tolerated Discharge Diet: Consistent carbs Referrals: Dorina Whalen MD [Primary Care Provider] - Additional Patient Instructions (free text): -Please make TCM appointment unless snf discharge. Thank you! Diandra @ [phone]. Prescriptions (Any new or edited meds): Cyclobenzaprine HCl [Flexeril] 5 mg PO BID PRN #20 tab PRN Reason: Muscle Spasm Docusate Sodium [Colace] 100 mg PO DAILY #30 cap Complete Home Medications List: Complete Home Medication List: Cholecalciferol (Vitamin D3) [Vitamin D3] 2,000 unit PO DAILY 06/18/17 Prednisolone Acetate/Nepafenac [Prednisolone 1%-Nepafenac 0.1%] 1 drp EACHEYE DAILY 06/18/17 Insulin Detemir [Levemir] 43 units SC BID 05/12/18 duloxetine 30 mg capsule,delayed release 30 mg PO HS #90 cap 07/03/18 duloxetine 60 mg capsule,delayed release 60 mg PO DAILY #90 cap 07/03/18 fluticasone 50 mcg/actuation nasal spray,suspension 1 spray SHANNAN DAILY PRN #9.9 g 07/03/18 losartan 50 mg tablet 50 mg PO DAILY #90 tab 07/03/18 montelukast 10 mg tablet 10 mg PO DAILY #90 tab 07/03/18 potassium chloride ER 20 mEq tablet,extended release(part/cryst) 40 meq PO DAILY #180 tab 07/03/18 rosuvastatin 5 mg tablet 5 mg PO HS #90 tab 07/03/18 Acetaminophen [Tylenol] 500 mg PO Q6H PRN 07/23/18 Atenolol [Tenormin] 50 mg PO HS 07/23/18 Blood Sugar Diagnostic [Contour Test Strip] 0 ea .ROUTE .MEDSUPPLY 08/07/18 Blood Sugar Diagnostic [Contour Test Strip] 0 ea .ROUTE .MEDSUPPLY 08/07/18 Ondansetron [Zofran Odt] 4 mg PO Q6H PRN 09/30/18 Ranitidine HCl [Zantac] 150 mg PO BID 09/30/18 Cyclobenzaprine HCl [Flexeril] 5 mg PO BID PRN #20 tab 10/02/18 Docusate Sodium [Colace] 100 mg PO DAILY #30 cap 10/02/18
[2018-10-02] MEDS ORDERED: BISACODYL 10 MG SUPP.RECT RC ONE ×2 (12:15→13:21)
[2018-10-02 14:41] VITALS: BP 120/63
== END 2018-10-02 16:00 | disposition home or self-care (01) ==
LOC: ER 17:59 → MS 17:59
PROVIDERS: ADMIT Family Medicine; ATTEND Internal Medicine
DX: K59.01 Slow transit constipation; E11.49 Type 2 diabetes mellitus with other diabetic neurological complication; R07.82 Intercostal pain; Z79.4 Long term (current) use of insulin; I10 Essential (primary) hypertension; G43.A1 Cyclical vomiting, in migraine, intractable
CPT/HCPCS: 36415; 71020; 71046; 74019; 74020; 80053; 81001; 82150; 83690; 84484; 85025; 93005; 96374; 96375; 99285; G0378; J2405

== ENCOUNTER 2018-10-25 19:06 | Observation (INO) ==
[2018-10-25] MEDS ORDERED: ONDANSETRON HCL/PF 2 MG/ML VIAL IV ONE ×3 (19:20→23:01)
--- NOTE | 2018-10-25 19:25 | ERNOTE ---
<Eugene Siddiqui - Last Filed: 10/25/18 19:40> Chest Pain/Cardiac HPI Date of Service: 10/25/18 Chief Complaint: Chest Pain Time Seen by Provider: 10/25/18 19:15 Source: patient, EMS Exam Limitations: no limitations Immunizations: IMMUNIZATION HX Immunizations Up to Date Yes History of Influenza Vaccine No Hx Pneumococcal Vaccination No Allergies/Adverse Reactions: Allergies codeine Allergy (Verified 10/01/18 18:13) enalapril Allergy (Verified 10/01/18 18:13) angioedema Latex, Natural Rubber Allergy (Verified 10/01/18 18:13) Hives lisinopril Allergy (Verified 10/01/18 18:13) Penicillins Allergy (Verified 10/01/18 18:13) salsalate Allergy (Verified 10/01/18 18:13) angioedema spironolactone Allergy (Verified 10/01/18 18:13) pruirtus Sulfa (Sulfonamide Antibiotics) Allergy (Verified 10/01/18 18:13) Tetracyclines Allergy (Verified 10/01/18 18:13) tramadol Allergy (Verified 10/01/18 18:13) throat swelling verapamil [Verapamil] Allergy (Verified 10/01/18 18:13) atorvastatin [From Lipitor] Adverse Reaction (Verified 10/01/18 18:13) myalgia fish oil Adverse Reaction (Verified 10/01/18 18:13) swelling fructose Adverse Reaction (Verified 10/01/18 18:13) Diarrhea lactose Adverse Reaction (Verified 10/01/18 18:13) Diarrhea metformin Adverse Reaction (Verified 10/01/18 18:13) diarrhea metoclopramide [From Reglan] Adverse Reaction (Verified 10/01/18 18:13) Other Jerking MRI Dye Allergy (Uncoded 10/01/18 18:13) Anaphylaxis Home Medications: HOME MEDICATIONS Cholecalciferol (Vitamin D3) [Vitamin D3] 2,000 unit PO DAILY 06/18/17 [Last Taken Unknown] Prednisolone Acetate/Nepafenac [Prednisolone 1%-Nepafenac 0.1%] 1 drp EACHEYE DAILY 06/18/17 [Last Taken Unknown] Insulin Detemir [Levemir] 43 units SC BID 05/12/18 [Last Taken Unknown] duloxetine 30 mg capsule,delayed release 30 mg PO HS #90 cap 07/03/18 [Last Taken Unknown] duloxetine 60 mg capsule,delayed release 60 mg PO DAILY #90 cap 07/03/18 [Last Taken Unknown] fluticasone 50 mcg/actuation nasal spray,suspension 1 spray SHANNAN DAILY PRN #9.9 g 07/03/18 [Last Taken Unknown] losartan 50 mg tablet 50 mg PO DAILY #90 tab 07/03/18 [Last Taken Unknown] montelukast 10 mg tablet 10 mg PO DAILY #90 tab 07/03/18 [Last Taken Unknown] potassium chloride ER 20 mEq tablet,extended release(part/cryst) 40 meq PO DAILY #180 tab 07/03/18 [Last Taken Unknown] rosuvastatin 5 mg tablet 5 mg PO HS #90 tab 07/03/18 [Last Taken Unknown] Acetaminophen [Tylenol] 500 mg PO Q6H PRN 07/23/18 [Last Taken Unknown] Atenolol [Tenormin] 50 mg PO HS 07/23/18 [Last Taken Unknown] Blood Sugar Diagnostic [Contour Test Strip] 0 ea .ROUTE .MEDSUPPLY 08/07/18 [Last Taken Unknown] Blood Sugar Diagnostic [Contour Test Strip] 0 ea .ROUTE .MEDSUPPLY 08/07/18 [Last Taken Unknown] Ondansetron [Zofran Odt] 4 mg PO Q6H PRN 09/30/18 [Last Taken 09/30/18 04:00] Ranitidine HCl [Zantac] 150 mg PO BID 09/30/18 [Last Taken Unknown] Cyclobenzaprine HCl [Flexeril] 5 mg PO BID PRN #20 tab 10/02/18 [Last Taken Unknown] Docusate Sodium [Colace] 100 mg PO DAILY #30 cap 10/02/18 [Last Taken Unknown] lancets See Dose Instructions .ROUTE .MEDSUPPLY #100 ea 10/03/18 [Last Taken Unknown] Narrative: patient presents to ed with report of chest pain and upper abdominal pain Timing: constant Severity/Quality: moderate, indigestion, sharp Location: substernal, epigastric Chest Pain Radiation: no radiation Activities at Onset: emotional stress Modifying Factors - Improves: Present: nothing Modifying Factors - Worsens: Present: nothing Nitro Today/Relief: no nitro taken today Aspirin Treatment Today: no aspirin today Associated Symptoms: Present: denies symptoms Prior Chest Pain/Cardiac Workup: Reports: prior chest pain, other - gastropareis Review of Systems - Review of Systems Constitutional: Present: See HPI EYE: Present: no symptoms reported ENT: Present: no symptoms reported Respiratory: Present: no symptoms reported Cardiology: Present: See HPI, chest pain Gastrointestinal/Abdominal: Present: See HPI, nausea, abdominal pain, eating less, drinking less Genitourinary: Present: no symptoms reported Musculoskeletal: Present: no symptoms reported Skin: Present: no symptoms reported Neurological: Present: no symptoms reported Endocrine: Present: no symptoms reported Hematologic/Lymphatic: Present: no symptoms reported Psych: Present: no symptoms reported All Other Systems: All systems neg except as marked Medical History (Last Reviewed 10/25/18 @ 19:38 by Kaycee Ann RN) Bilateral lower extremity edema Onset Date: Unknown Diverticulosis of colon without diverticulitis Onset Date: Unknown Gastroparesis Helicobacter pylori (H. pylori) Allergic rhinitis Onset Date: Unknown Anemia Onset Date: ~2005 Depression Onset Date: ~2003 Diabetes mellitus, type II Onset Date: ~1999 Fibromyalgia Onset Date: ~2004 GERD (gastroesophageal reflux disease) Onset Date: ~2011 Hyperlipidemia Onset Date: ~1997 Obesity Onset Date: ~06/20/15 Sleep apnea Onset Date: ~03/2006 7cm of H20 Sarcoidosis Onset Date: ~1997 Both eyes Surgical History: Surgical History (Last Reviewed 10/25/18 @ 19:38 by Kaycee Ann RN) Hx laparoscopic cholecystectomy Onset Date: ~07/21/18 H/O cardiac catheterization Onset Date: ~2003 [facility] done twice and last time showing minimal blockage. H/O colonoscopy Onset Date: ~07/2004 diverticulosis H/O echocardiogram Onset Date: ~02/03/14 LV cavity size normal mild concentric LV hypertrophy normal LVSF moderate diastolic dysfunction normal RV cavity size mild MR TR dilated inferior vena cava mild RA dilation LA is moderately dilated severe pulmonary hypertension. History of cataract surgery Onset Date: ~2000 bilateral History of esophagogastroduodenoscopy (EGD) Onset Date: ~2015 [place], [place] History of knee replacement Onset Date: ~01/21/14 left. [facility] History of partial mastectomy of right breast Onset Date: ~02/08/12 w/ sentinel lymph node bx stage 1 invasive ductal carcinoma Pseudotumor cerebri Onset Date: ~1975 Strabismus Onset Date: ~1955 surgery for this in the left eye Family History: Family History (Last Reviewed 10/25/18 @ 19:38 by Kaycee Ann RN) Sister Multiple sclerosis Father Myocardial infarction Mother Diabetes Cancer breast cancer Social History: Preferred Language Kittitian Smoking Status Former smoker Have you smoked in the past 12 No months Do you dip or chew tobacco No Abuse History No History of abuse Psych History No pertinent hx Alcohol Use none Drug Use none (Last Updated 10/06/18 @ 11:42 by Dorina Whalen MD) No Social History Section defined Physical Exam - Physical Exam General Appearance: Present: mild distress, anxious Head Exam: Present: normal inspection, no evidence of injury Eye Exam: Normal inspection: bilateral, PERRL: bilateral, EOMI: bilateral Ears, Nose, Throat: Present: normal ENT inspection, normal pharynx Neck: Present: normal inspection, nontender Respiratory: Present: no respiratory distress, normal breath sounds, no accessory muscle use, chest nontender, lungs clear Cardiovascular/Chest: Present: regular rate, rhythm, no murmur, normal peripheral pulses Gastrointestinal/Abdominal: Present: normal bowel sounds, tenderness, distended Back Exam: Present: normal inspection, normal range of motion, no CVA tenderness, no vertebral tenderness Extremity Exam: Present: normal inspection, non-tender, normal range of motion Neurological Exam: Present: alert, oriented, normal mood/affect, no motor/sensory deficits DTR: N=norm/NB=norm/brisk/A=abs/DD=dull/dimin/HC=hyperactive: Bicep (R): Normal, Bicep (L): Normal, Tricep (R): Normal, Tricep (L): Normal, Knee (R): Normal, Knee (L): Normal, Ankle (R): Normal, Ankle (L): Normal Skin Exam: Present: normal color, warm/dry Lymphatic Exam: Present: no adenopathy Progress - Date and Time Seen: Date and Time: 10/25/18 19:40 patient improved - Vital Signs Vital Signs: Vital Signs 10/25/18 19:08 10/25/18 19:16 10/25/18 19:17 Temperature 36.4 C Pulse Rate 76 70 72 Respiratory Rate 22 H 18 Blood Pressure 169/82 H 169/82 H O2 Sat by Pulse Oximetry 100 98 - EKG EKG #1 EKG: NSR - Progress/Reassessment Chief Complaint: Chest Pain - Transfer of Care Physician Sign Out: Eugene Siddiqui Receiving Physician: Jose Villalba Expected Disposition: Discharge Plan - Plan Plan: to be discharged Departure Clinical Impression: Gastroparesis, Intractable vomiting with nausea - Departure Disposition: Still a patient Condition: Stable Referrals: Dorina Whalen MD [Primary Care Provider] - <Jose Villalba - Last Filed: 10/25/18 22:40> Chest Pain/Cardiac HPI Immunizations: IMMUNIZATION HX Immunizations Up to Date Yes History of Influenza Vaccine No Hx Pneumococcal Vaccination No Medical History (Last Reviewed 10/25/18 @ 19:38 by Kaycee Ann RN) Bilateral lower extremity edema Onset Date: Unknown Diverticulosis of colon without diverticulitis Onset Date: Unknown Gastroparesis Helicobacter pylori (H. pylori) Allergic rhinitis Onset Date: Unknown Anemia Onset Date: ~2005 Depression Onset Date: ~2003 Diabetes mellitus, type II Onset Date: ~1999 Fibromyalgia Onset Date: ~2004 GERD (gastroesophageal reflux disease) Onset Date: ~2011 Hyperlipidemia Onset Date: ~1997 Obesity Onset Date: ~06/20/15 Sleep apnea Onset Date: ~03/2006 7cm of H20 Sarcoidosis Onset Date: ~1997 Both eyes Surgical History: Surgical History (Last Reviewed 10/25/18 @ 19:38 by Kaycee Ann RN) Hx laparoscopic cholecystectomy Onset Date: ~07/21/18 H/O cardiac catheterization Onset Date: ~2003 [facility] done twice and last time showing minimal blockage. H/O colonoscopy Onset Date: ~07/2004 diverticulosis H/O echocardiogram Onset Date: ~02/03/14 LV cavity size normal mild concentric LV hypertrophy normal LVSF moderate diastolic dysfunction normal RV cavity size mild MR TR dilated inferior vena cava mild RA dilation LA is moderately dilated severe pulmonary hypertension. History of cataract surgery Onset Date: ~2000 bilateral History of esophagogastroduodenoscopy (EGD) Onset Date: ~2015 [place], [place] History of knee replacement Onset Date: ~01/21/14 left. [facility] History of partial mastectomy of right breast Onset Date: ~02/08/12 w/ sentinel lymph node bx stage 1 invasive ductal carcinoma Pseudotumor cerebri Onset Date: ~1975 Strabismus Onset Date: ~1954 surgery for this in the left eye Family History: Family History (Last Reviewed 10/25/18 @ 19:38 by Kaycee Ann RN) Sister Multiple sclerosis Father Myocardial infarction Mother Diabetes Cancer breast cancer Social History: Preferred Language Kittitian Smoking Status Former smoker Have you smoked in the past 12 No months Do you dip or chew tobacco No Abuse History No History of abuse Psych History No pertinent hx Alcohol Use none Drug Use none (Last Updated 10/06/18 @ 11:42 by Dorina Whalen MD) No Social History Section defined Progress - Results and Orders Patient's Lab Results:: I have reviewed the patient's lab results. - Vital Signs Patient's Vital Signs:: I have reviewed the patient's vital signs. Vital Signs: Vital Signs 10/25/18 19:08 10/25/18 19:16 10/25/18 19:17 Temperature 36.4 C Pulse Rate 76 70 72 Respiratory Rate 22 H 18 Blood Pressure 169/82 H 169/82 H O2 Sat by Pulse Oximetry 100 98 10/25/18 19:38 Temperature Pulse Rate 78 Respiratory Rate 18 Blood Pressure 176/76 H O2 Sat by Pulse Oximetry 99 - X-Ray X-Ray #1 X-Ray: chest - no acute change Plan - Plan Plan: Took over for Dr. Chavez, patient states that she has been vomiting, she had reproducible chest wall pain. 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 She has had diabetic gastroparesis for several years, has had her gallbladder removed without improvement in her symptoms. She had mild chest pain associated with vomiting. Her was unable to take care of her at home. She was recently admitted and discharged for chest pain issues. Pain was deemed to be reproducible, diagnosed with costochondritis, sent home. Patient continues to vomit, she feels weak, will admit for obs, she clearly has reproducible chest wall pain with negative troponins. Dr. Odom to admit for obs
[2018-10-25] MEDS: LORazepam 2 MG/ML DISP.SYRIN IV ONE ×2 (19:27→20:33)
[2018-10-25 19:41] LABS: Hemoglobin 12.3 gm/dL (12.5-16.0); Mean Cell Volume 85.6 fl (78-100); Mean Corpuscular Hemoglobin 28.5 pg (27-31); Mean Corpuscular Hgb Conc 33.2 g/dl (32-36); Mean Platelet Volume 10.4 fl (8-12.5); Neutrophil # 9.3 K/mm3 (1.3-6.0); Neutrophil % 81.9 % (42-75.0); Platelet Count 367 K/mm3 (150-450); Red Blood Count 4.32 M/mm3 (4.2-5.4); Red Cell Distribution Width 14.7 % (11.5-14.0); White Blood Count 11.4 K/mm3 (4.0-10.5)
[2018-10-25 19:59] LABS: BUN/Creatinine Ratio 8.6 (9.0-21.6); Blood Urea Nitrogen 7 mg/dL (3-23); Glucose * 149 mg/dL (70-110)
[2018-10-25 20:00] LABS: ALT 7 U/L (19-67); AST 17 U/L (0-48); Albumin * 3.6 gm/dl (3.4-5.0); Alkaline Phosphatase * 102 U/L (50-170); Anion Gap 16.5 mmol/L (6.8-13.8); Bilirubin, Total 0.5 mg/dL (0.0-1.1); Carbon Dioxide 22.4 mmol/L (24-32.6); Chloride 101 mmol/L (97-106); Potassium 2.9 mmol/L (3.4-4.6); Sodium 137 mmol/L (132-142); Total Protein 8.2 gm/dL (6.2-8.2); Troponin I Less than 0.017 ng/mL (0.00-0.10)
[2018-10-25 20:20] LABS: Prothrombin Time (Patient) 10.5 Seconds (9.1-10.7)
[2018-10-25] MEDS ORDERED: LORazepam 1 MG TABLET PO ONE (20:22)
[2018-10-25] MEDS ORDERED: ATENOLOL 50 MG TABLET PO ONE (20:22)
[2018-10-25] MEDS: POTASSIUM CHLORIDE 20 MEQ TABLET.SA PO ONE ×2 (20:29→22:51)
[2018-10-25 20:34] LABS: Amylase * 64 U/L (25-115); Lipase 59 U/L (73-393)
[2018-10-25 20:40] LABS: INR 1.06 INR (0.92-1.08); Partial Thrombolplastin Time 23.6 Seconds (24-32)
[2018-10-25] MEDS ORDERED: NORMAL SALINE 1,000 ML IV ONE (20:47)
[2018-10-25] MEDS ORDERED: POTASSIUM CHLORIDE IN WATER 100 ML IV ONE (21:21)
[2018-10-25] MEDS ORDERED: hydrALAZINE HCL 20 MG/ML VIAL IV ONE (21:55)
[2018-10-25] MEDS ORDERED: LORazepam 2 MG/ML DISP.SYRIN IV ONE (22:25)
[2018-10-25] MEDS ORDERED: MORPHINE SULFATE 4 MG/ML SYRG IV ONE (22:31)
[2018-10-25] MEDS ORDERED: POTASSIUM CHLORIDE 40 MEQ in NORMAL SALINE 1,000 ML IV SCH (22:45)
[2018-10-26] MEDS ORDERED: ONDANSETRON HCL/PF 2 MG/ML VIAL ONE (00:46)
[2018-10-26] MEDS ORDERED: MAG HYDROX/ALUMINUM HYD/SIMETH 30 ML UDC PO ONE (01:01)
[2018-10-26] MEDS ORDERED: SUCRALFATE 1 G/10 ML UDC PO ONE (01:01)
[2018-10-26] MEDS ORDERED: LIDOCAINE HCL 20 ML UDC PO ONE (01:01)
[2018-10-26 10:07] LABS: Hematocrit 31.8 % (37.0-47.0); Hemoglobin 10.4 gm/dL (12.5-16.0); Mean Cell Volume 87.1 fl (78-100); Mean Corpuscular Hemoglobin 28.5 pg (27-31); Mean Corpuscular Hgb Conc 32.7 g/dl (32-36); Mean Platelet Volume 9.2 fl (8-12.5); Neutrophil # 6.5 K/mm3 (1.3-6.0); Platelet Count 293 K/mm3 (150-450); Red Blood Count 3.65 M/mm3 (4.2-5.4); White Blood Count 9.6 K/mm3 (4.0-10.5)
[2018-10-26 10:28] LABS: BUN/Creatinine Ratio 11.1 (9.0-21.6)
[2018-10-26 10:29] LABS: Albumin * 2.9 gm/dl (3.4-5.0); Anion Gap 11.7 mmol/L (6.8-13.8); Bilirubin, Total 0.4 mg/dL (0.0-1.1); Ca. Corrected For Albumin 9.4 mg/dL (8.4-10.2); Calcium * 8.8 mg/dL (7.9-10.9); Carbon Dioxide 26.5 mmol/L (24-32.6); Potassium 3.2 mmol/L (3.4-4.6); Total Protein 6.7 gm/dL (6.2-8.2)
[2018-10-26] MEDS ORDERED: ACETAMINOPHEN 500 MG TABLET PO PRN (10:59)
[2018-10-26] MEDS ORDERED: FLUTICASONE PROPIONATE 120 SPRAY INHALER NS PRN (10:59)
[2018-10-26] MEDS ORDERED: ACETAMINOPHEN 500 MG TABLET PO ONE (10:59)
--- NOTE | 2018-10-26 11:08 | HP ---
Chief Complaint - Chief Complaint Date of Service: 10/26/18 Time of Service: 10:30 Chief Complaint: Nausea, vomiting, chest pain History of Present Illness: Rukhsana is a 73 yo female with known gastroparesis who presented with chest pain. Initial evaluation in the ER was negative for acute WI with normal troponin and no acute EKG changes. She denies any recent change in diet or medications. Medical History (Last Reviewed 11/09/18 @ 18:47 by Ayala Brown MD) Bilateral lower extremity edema Onset Date: Unknown Diverticulosis of colon without diverticulitis Onset Date: Unknown Gastroparesis Helicobacter pylori (H. pylori) Allergic rhinitis Onset Date: Unknown Anemia Onset Date: ~2005 Depression Onset Date: ~2003 Diabetes mellitus, type II Onset Date: ~1999 Fibromyalgia Onset Date: ~2004 GERD (gastroesophageal reflux disease) Onset Date: ~2011 Hyperlipidemia Onset Date: ~1997 Obesity Onset Date: ~06/20/15 Sleep apnea Onset Date: ~03/2006 7cm of H20 Sarcoidosis Onset Date: ~1997 Both eyes Surgical History: Surgical History (Last Reviewed 11/09/18 @ 18:47 by Ayala Brown MD) Hx laparoscopic cholecystectomy Onset Date: ~07/21/18 H/O cardiac catheterization Onset Date: ~2003 [facility] done twice and last time showing minimal blockage. H/O colonoscopy Onset Date: ~07/2004 diverticulosis H/O echocardiogram Onset Date: ~02/03/14 LV cavity size normal mild concentric LV hypertrophy normal LVSF moderate diastolic dysfunction normal RV cavity size mild MR TR dilated inferior vena cava mild RA dilation LA is moderately dilated severe pulmonary hypertension. History of cataract surgery Onset Date: ~2000 bilateral History of esophagogastroduodenoscopy (EGD) Onset Date: ~2015 [place], [place] History of knee replacement Onset Date: ~01/21/14 left. [facility] History of partial mastectomy of right breast Onset Date: ~02/08/12 w/ sentinel lymph node bx stage 1 invasive ductal carcinoma Pseudotumor cerebri Onset Date: ~1975 Strabismus Onset Date: ~1954 surgery for this in the left eye Family History: Family History (Last Reviewed 11/09/18 @ 18:37 by Radha Mccann RN) Sister Multiple sclerosis Father Myocardial infarction Mother Diabetes Cancer breast cancer Social History: Patient Lives/Resources With Spouse Utilized Occupation retired Preferred Language French Do you have any advent or Yes: non-buddhist cultural preference? Smoking Status Former smoker Have you smoked in the past 12 No months Do you dip or chew tobacco No Abuse History No History of abuse Psych History No pertinent hx Alcohol Use none Drug Use none (Last Updated 10/06/18 @ 11:42 by Dorina Whalen MD) No Social History Section defined Review Of Systems (GEN) - Review of Systems Generalized/Overall Review: Absent: Weakness, Chills, Fever EENTM: Present: No Symptoms Reported Respiratory: Absent: Cough, Shortness of Breath Cardiac: Present: Chest Pain. Absent: Edema, Palpitations, Syncope Abdominal: Present: Nausea, Vomiting, Abdominal Pain. Absent: Hematemesis, Constipation, Diarrhea, Melena, Bright blood from rectum Genitourinary: Present: No Symptoms Reported Musculoskeletal: Present: No Symptoms Reported Neurological: Present: No Symptoms Reported Skin: Present: No Symptoms Reported Endocrine: Present: No Symptoms Reported Immunizations: IMMUNIZATION HX Immunizations Up to Date Yes History of Influenza Vaccine No Hx Pneumococcal Vaccination No Allergies/Adverse Reactions: Allergies Allergy/AdvReac Type Severity Reaction Status Date / Time codeine Allergy Verified 11/09/18 18:37 enalapril Allergy angioedema Verified 11/09/18 18:37 Latex, Natural Rubber Allergy Hives Verified 11/09/18 18:37 lisinopril Allergy Verified 11/09/18 18:37 Penicillins Allergy Verified 11/09/18 18:37 salsalate Allergy angioedema Verified 11/09/18 18:37 spironolactone Allergy pruirtus Verified 11/09/18 18:37 Sulfa (Sulfonamide Allergy Verified 11/09/18 18:37 Antibiotics) Tetracyclines Allergy Verified 11/09/18 18:37 tramadol Allergy throat Verified 11/09/18 18:37 swelling verapamil [Verapamil] Allergy Verified 11/09/18 18:37 atorvastatin [From Lipitor] AdvReac myalgia Verified 11/09/18 18:37 fish oil AdvReac swelling Verified 11/09/18 18:37 fructose AdvReac Diarrhea Verified 11/09/18 18:37 lactose AdvReac Diarrhea Verified 11/09/18 18:37 metformin AdvReac diarrhea Verified 11/09/18 18:37 metoclopramide [From Reglan] AdvReac Other Verified 11/09/18 18:37 MRI Dye Allergy Anaphylaxis Uncoded 11/09/18 18:37 Home Medications: HOME MEDICATIONS Insulin Detemir [Levemir] 43 units SC BID 05/12/18 [Last Taken 10/25/18 15:00] duloxetine 30 mg capsule,delayed release 30 mg PO HS #90 cap 07/03/18 [Last Taken 10/24/18 23:00] duloxetine 60 mg capsule,delayed release 60 mg PO DAILY #90 cap 07/03/18 [Last Taken 10/25/18 09:00] fluticasone 50 mcg/actuation nasal spray,suspension 1 spray SHANNAN DAILY PRN #9.9 g 07/03/18 [Last Taken 10/25/18 09:00] losartan 50 mg tablet 50 mg PO DAILY #90 tab 07/03/18 [Last Taken Unknown] montelukast 10 mg tablet 10 mg PO DAILY #90 tab 07/03/18 [Last Taken 10/25/18 09:00] potassium chloride ER 20 mEq tablet,extended release(part/cryst) 40 meq PO DAILY #180 tab 07/03/18 [Last Taken 10/24/18 23:00] rosuvastatin 5 mg tablet 5 mg PO HS #90 tab 07/03/18 [Last Taken 10/25/18 21:00] Acetaminophen [Tylenol] 500 mg PO Q6H PRN 07/23/18 [Last Taken Unknown] Atenolol [Tenormin] 100 mg PO HS 07/23/18 [Last Taken 10/25/18] Blood Sugar Diagnostic [Contour Test Strip] 0 ea .ROUTE .MEDSUPPLY 08/07/18 [Last Taken Unknown] Blood Sugar Diagnostic [Contour Test Strip] 0 ea .ROUTE .MEDSUPPLY 08/07/18 [Last Taken Unknown] Docusate Sodium [Colace] 100 mg PO DAILY #30 cap 10/02/18 [Last Taken 10/25/18 09:00] lancets See Dose Instructions .ROUTE .MEDSUPPLY #100 ea 10/03/18 [Last Taken Unknown] Erythromycin Base [Erythromycin] 250 mg PO AC #90 tab 10/26/18 [Last Taken Unknown] Exenatide [Byetta] 5 mcg SQ BID 11/04/18 [Last Taken Unknown] Mirtazapine 30 mg PO DAILY 11/04/18 [Last Taken Unknown] Spironolactone 25 mg PO BID 11/04/18 [Last Taken Unknown] busPIRone HCL [Buspar] 5 mg PO DAILY PRN 11/04/18 [Last Taken Unknown] Cyclobenzaprine HCl [Flexeril] 5 mg PO DAILY PRN #30 tab 11/05/18 [Last Taken Unknown] Exam - Exam Vital Signs: Vital Signs - Last Taken Temp 37.2 C 10/26/18 06:51 Pulse 77 10/26/18 06:51 Resp 20 10/26/18 06:51 BP 97/50 10/26/18 06:51 Pulse Ox 95 10/26/18 06:51 Constitutional: Present: Alert, Oriented x3, Cooperative ENT Exam: Present: hearing grossly normal Eye Exam: bilateral eye: normal inspection Respiratory: Present: lungs clear, normal breath sounds Cardiovascular/Chest: Present: regular rate, rhythm, no murmur Abdomen: Present: Normal bowel sounds, soft, nontender, nondistended Skin Exam: Present: normal color, warm/dry, no cyanosis Appearance: Present: appropriate appearance, appropriate insight Eye contact: Present: cooperative, good eye contact, normal speech Thoughts: Present: normal thought pattern, no apparent hallucination Diagnostic Studies: Abnormal Lab Results 10/25/18 10/25/18 10/25/18 Range/Units 19:35 19:35 19:35 WBC 11.4 H (4.0-10.5) K/mm3 RBC (4.2-5.4) M/mm3 Hgb 12.3 L (12.5-16.0) gm/dL Hct (37.0-47.0) % RDW 14.7 H (11.5-14.0) % Immature Gran # (Auto) 0.05 H (0.000-0.0310) K/mm3 Neutrophils % 81.9 H (42-75.0) % Lymphocytes % 11.7 L (20-51) % Monocytes % (0.0-9) % Neutrophils # 9.3 H (1.3-6.0) K/mm3 Lymphocytes # 1.33 L (1.5-3.5) k/mm3 PTT (Dane) 23.6 L (24-32) Seconds Potassium 2.9 L (3.4-4.6) mmol/L Carbon Dioxide 22.4 L (24-32.6) mmol/L Anion Gap 16.5 H (6.8-13.8) mmol/L BUN/Creatinine Ratio 8.6 L (9.0-21.6) Random Glucose 149 H (70-110) mg/dL Lactic Acid, Venous (0.4-2.0) mmol/L ALT 7 L (19-67) U/L Albumin (3.4-5.0) gm/dl Lipase (73-393) U/L 10/25/18 10/25/18 10/26/18 Range/Units 19:50 22:50 10:00 WBC (4.0-10.5) K/mm3 RBC 3.65 L (4.2-5.4) M/mm3 Hgb 10.4 L (12.5-16.0) gm/dL Hct 31.8 L (37.0-47.0) % RDW 15.0 H (11.5-14.0) % Immature Gran # (Auto) (0.000-0.0310) K/mm3 Neutrophils % (42-75.0) % Lymphocytes % (20-51) % Monocytes % 9.2 H (0.0-9) % Neutrophils # 6.5 H (1.3-6.0) K/mm3 Lymphocytes # (1.5-3.5) k/mm3 PTT (Sajan) (24-32) Seconds Potassium (3.4-4.6) mmol/L Carbon Dioxide (24-32.6) mmol/L Anion Gap (6.8-13.8) mmol/L BUN/Creatinine Ratio (9.0-21.6) Random Glucose (70-110) mg/dL Lactic Acid, Venous 2.3 H* (0.4-2.0) mmol/L ALT (19-67) U/L Albumin (3.4-5.0) gm/dl Lipase 59 L (73-393) U/L 10/26/18 Range/Units 10:00 WBC (4.0-10.5) K/mm3 RBC (4.2-5.4) M/mm3 Hgb (12.5-16.0) gm/dL Hct (37.0-47.0) % RDW (11.5-14.0) % Immature Gran # (Auto) (0.000-0.0310) K/mm3 Neutrophils % (42-75.0) % Lymphocytes % (20-51) % Monocytes % (0.0-9) % Neutrophils # (1.3-6.0) K/mm3 Lymphocytes # (1.5-3.5) k/mm3 PTT (Sajan) (24-32) Seconds Potassium 3.2 L (3.4-4.6) mmol/L Carbon Dioxide (24-32.6) mmol/L Anion Gap (6.8-13.8) mmol/L BUN/Creatinine Ratio (9.0-21.6) Random Glucose (70-110) mg/dL Lactic Acid, Venous (0.4-2.0) mmol/L ALT 6 L (19-67) U/L Albumin 2.9 L (3.4-5.0) gm/dl Lipase (73-393) U/L Laboratory Results WBC 9.6 K/mm3 (4.0-10.5) 10/26/18 10:00 RBC 3.65 M/mm3 (4.2-5.4) L 10/26/18 10:00 Hgb 10.4 gm/dL (12.5-16.0) L 10/26/18 10:00 Hct 31.8 % (37.0-47.0) L 10/26/18 10:00 MCV 87.1 fl (78-100) 10/26/18 10:00 MCH 28.5 pg (27-31) 10/26/18 10:00 MCHC 32.7 g/dl (32-36) 10/26/18 10:00 RDW 15.0 % (11.5-14.0) H 10/26/18 10:00 Plt Count 293 K/mm3 (150-450) 10/26/18 10:00 MPV 9.2 fl (8-12.5) 10/26/18 10:00 Immature Gran % (Auto) 0.20 % (0.001-0.429) 10/26/18 10:00 Immature Gran # (Auto) 0.02 K/mm3 (0.000-0.0310) 10/26/18 10:00 Neutrophils % 68.0 % (42-75.0) 10/26/18 10:00 Lymphocytes % 21.5 % (20-51) 10/26/18 10:00 Monocytes % 9.2 % (0.0-9) H 10/26/18 10:00 Eosinophils % 0.8 % (0.0-3.0) 10/26/18 10:00 Basophils % 0.3 % (0.0-1.0) 10/26/18 10:00 Nucleated RBC % 0.0 k/mm3 (0-1) 10/26/18 10:00 Neutrophils # 6.5 K/mm3 (1.3-6.0) H 10/26/18 10:00 Lymphocytes # 2.06 k/mm3 (1.5-3.5) 10/26/18 10:00 Monocytes # 0.9 k/mm3 (0.0-1.0) 10/26/18 10:00 Eosinophils # 0.1 k/mm3 (0.0-0.7) 10/26/18 10:00 Absolute Basophils 0.0 k/mm3 (0.0-0.1) 10/26/18 10:00 PT 10.5 Seconds (9.1-10.7) 10/25/18 19:35 INR (Anticoag Therapy) 1.06 INR (0.92-1.08) 10/25/18 19:35 PTT (Sajan) 23.6 Seconds (24-32) L 10/25/18 19:35 Sodium 141 mmol/L (132-142) 10/26/18 10:00 Plasma Sodium 141 mmol/L (130-142) 10/26/18 10:00 Potassium 3.2 mmol/L (3.4-4.6) L 10/26/18 10:00 Chloride 106 mmol/L (97-106) 10/26/18 10:00 Carbon Dioxide 26.5 mmol/L (24-32.6) 10/26/18 10:00 Anion Gap 11.7 mmol/L (6.8-13.8) 10/26/18 10:00 BUN 7 mg/dL (3-23) 10/26/18 10:00 Creatinine 0.63 mg/dL (0.4-1.4) 10/26/18 10:00 Est GFR (Non-Af Amer) 118 mL/min (60-130) D 10/26/18 10:00 BUN/Creatinine Ratio 11.1 (9.0-21.6) 10/26/18 10:00 Random Glucose 103 mg/dL (70-110) D 10/26/18 10:00 Lactic Acid, Venous 2.3 mmol/L (0.4-2.0) H* 10/25/18 22:50 Calcium 8.8 mg/dL (7.9-10.9) 10/26/18 10:00 Calcium Adj for Albumin 9.4 mg/dL (8.4-10.2) 10/26/18 10:00 Total Bilirubin 0.4 mg/dL (0.0-1.1) 10/26/18 10:00 AST 11 U/L (0-48) 10/26/18 10:00 ALT 6 U/L (19-67) L 10/26/18 10:00 Alkaline Phosphatase 81 U/L (50-170) 10/26/18 10:00 Troponin I Less than 0.017 ng/mL (0.00-0.10) 10/26/18 01:40 Total Protein 6.7 gm/dL (6.2-8.2) 10/26/18 10:00 Albumin 2.9 gm/dl (3.4-5.0) L 10/26/18 10:00 Amylase 64 U/L (25-115) 10/25/18 19:50 Lipase 59 U/L (73-393) L 10/25/18 19:50 Assessment/Plan - Narrative Narrative: Laxmi is a 73 yo female with chest pain. Will evaluate for cardiac concerns by placing on telemetry and getting serial troponins. Initial work up in the ER is negative for acute WI. She has a longstanding history of gastroparesis and I suspect this is related. May consider treatment with erythromycin for gastroparesis as she has already tried reglan. Will admit to observation, expect 1 midnight hospitalization. - Assessment/Plan (1) Chest pain Problem: Resolved Qualifiers: Chest pain type: intercostal pain Qualified Code(s): R07.82 - Intercostal pain (2) Gastroparesis Problem: Acute
[2018-10-26] MEDS ORDERED: LOSARTAN POTASSIUM 50 MG TABLET PO SCH (11:15)
[2018-10-26] MEDS ORDERED: POTASSIUM CHLORIDE 20 MEQ TABLET.SA PO SCH (11:15)
[2018-10-26] MEDS ORDERED: DULoxetine HCL 30 MG CAPSULE.SA PO SCH ×2 (11:15→21:00)
[2018-10-26] MEDS ORDERED: INSULIN DETEMIR 100 UNITS/ML VIAL SC SCH (11:15)
[2018-10-26] MEDS ORDERED: DOCUSATE SODIUM 100 MG CAPSULE PO SCH (11:15)
--- NOTE | 2018-10-26 11:36 | DS ---
(1) Gastroparesis Problem: Acute (2) Hypokalemia Problem: Acute (3) Nausea & vomiting Problem: Resolved Qualifiers: Vomiting type: unspecified Vomiting Intractability: unspecified Qualified Code(s): R11.2 - Nausea with vomiting, unspecified Description of Stay: Laxmi was admitted for chest pain, nausea with vomiting, and hypokalemia. She was given potassium replacement, fluids, and evaluated for acute IN. Troponins were negative without electrical changes consistent with acute IN. Potassium was rechecked and improved from 2.9 to 3.2. She will be discharged to home on oral potassium. She has a history of gastroparesis which causes frequent flares of her symptoms. I suspect this was the cause to her episode. She has tried reglan in the past which caused shakes. She has not tried erythromycin previously and I discussed this with her and she would like to try this treatment. She is medically ok to be discharged to home. Procedures Performed: none Results and Findings: Lab Pending Results 10/25/18 19:35: WBC 11.4 H, RBC 4.32, Hgb 12.3 L, Hct 37.0, MCV 85.6, MCH 28.5, MCHC 33.2, RDW 14.7 H, Plt Count 367, MPV 10.4, Immature Gran % (Auto) 0.40, Immature Gran # (Auto) 0.05 H, Neutrophils % 81.9 H, Lymphocytes % 11.7 L, Monocytes % 5.3, Eosinophils % 0.2, Basophils % 0.5, Nucleated RBC % 0.0, Neutrophils # 9.3 H, Lymphocytes # 1.33 L, Monocytes # 0.6, Eosinophils # 0.0, Absolute Basophils 0.1 10/25/18 19:35: PT 10.5, INR (Anticoag Therapy) 1.06, PTT (Sajan) 23.6 L 10/25/18 19:35: Sodium 137, Plasma Sodium 138, Potassium 2.9 L, Chloride 101, Carbon Dioxide 22.4 L, Anion Gap 16.5 H, BUN 7, Creatinine 0.81, Est GFR (Non-Af Amer) 89, BUN/Creatinine Ratio 8.6 L, Random Glucose 149 H, Calcium 10.0, Calcium Adj for Albumin 10.0, Total Bilirubin 0.5, AST 17, ALT 7 L, Alkaline Phosphatase 102, Troponin I Less than 0.017, Total Protein 8.2, Albumin 3.6 10/25/18 19:50: Amylase 64, Lipase 59 L 10/25/18 21:50: Troponin I Less than 0.017 10/25/18 22:50: Lactic Acid, Venous 2.3 H* 10/26/18 01:40: Troponin I Less than 0.017 10/26/18 10:00: WBC 9.6, RBC 3.65 L, Hgb 10.4 L, Hct 31.8 L, MCV 87.1, MCH 28.5, MCHC 32.7, RDW 15.0 H, Plt Count 293, MPV 9.2, Immature Gran % (Auto) 0.20, Immature Gran # (Auto) 0.02, Neutrophils % 68.0, Lymphocytes % 21.5, Monocytes % 9.2 H, Eosinophils % 0.8, Basophils % 0.3, Nucleated RBC % 0.0, Neutrophils # 6.5 H, Lymphocytes # 2.06, Monocytes # 0.9, Eosinophils # 0.1, Absolute Basophils 0.0 10/26/18 10:00: Sodium 141, Plasma Sodium 141, Potassium 3.2 L, Chloride 106, Carbon Dioxide 26.5, Anion Gap 11.7, BUN 7, Creatinine 0.63, Est GFR (Non-Af Amer) 118 D, BUN/Creatinine Ratio 11.1, Random Glucose 103 D, Calcium 8.8, Calcium Adj for Albumin 9.4, Total Bilirubin 0.4, AST 11, ALT 6 L, Alkaline Phosphatase 81, Total Protein 6.7, Albumin 2.9 L Discharge Location: Home Disposition: Home self-care Condition: Stable Discharge Activity: Activity as tolerated Discharge Diet: General/regular food Referrals: Dorina Whalen MD [Primary Care Provider] - One Week Problem Oriented Discharge Instructions to Patient/Family: Chest Pain Observati on, Gastroparesis Prescriptions (Any new or edited meds): Erythromycin Base [Erythromycin] 250 mg PO AC #90 tab Complete Home Medications List: Complete Home Medication List: Cholecalciferol (Vitamin D3) [Vitamin D3] 2,000 unit PO DAILY 06/18/17 Prednisolone Acetate/Nepafenac [Prednisolone 1%-Nepafenac 0.1%] 1 drp EACHEYE DAILY 06/18/17 Insulin Detemir [Levemir] 43 units SC BID 05/12/18 duloxetine 30 mg capsule,delayed release 30 mg PO HS #90 cap 07/03/18 duloxetine 60 mg capsule,delayed release 60 mg PO DAILY #90 cap 07/03/18 fluticasone 50 mcg/actuation nasal spray,suspension 1 spray SHANNAN DAILY PRN #9.9 g 07/03/18 losartan 50 mg tablet 50 mg PO DAILY #90 tab 07/03/18 montelukast 10 mg tablet 10 mg PO DAILY #90 tab 07/03/18 potassium chloride ER 20 mEq tablet,extended release(part/cryst) 40 meq PO DAILY #180 tab 07/03/18 rosuvastatin 5 mg tablet 5 mg PO HS #90 tab 07/03/18 Acetaminophen [Tylenol] 500 mg PO Q6H PRN 07/23/18 Atenolol [Tenormin] 50 mg PO HS 07/23/18 Blood Sugar Diagnostic [Contour Test Strip] 0 ea .ROUTE .MEDSUPPLY 08/07/18 Blood Sugar Diagnostic [Contour Test Strip] 0 ea .ROUTE .MEDSUPPLY 08/07/18 Cyclobenzaprine HCl [Flexeril] 5 mg PO BID PRN #20 tab 10/02/18 Docusate Sodium [Colace] 100 mg PO DAILY #30 cap 10/02/18 lancets See Dose Instructions .ROUTE .MEDSUPPLY #100 ea 10/03/18 Erythromycin Base [Erythromycin] 250 mg PO AC #90 tab 10/26/18
[2018-10-26 13:06] VITALS: BP 96/51
[2018-10-26] MEDS ORDERED: ROSUVASTATIN CALCIUM 10 MG TABLET PO SCH (21:00)
[2018-10-26] MEDS ORDERED: ATENOLOL 50 MG TABLET PO SCH (21:00)
[2018-10-26] MEDS ORDERED: MONTELUKAST SODIUM 10 MG TABLET PO SCH (21:00)
== END 2018-10-26 13:10 | disposition home or self-care (01) ==
LOC: ER 19:06 → MS 19:06
PROVIDERS: ADMIT Family Medicine; ATTEND Family Medicine
CPT/HCPCS: 36415; 71020; 71046; 80053; 82150; 83605; 83690; 84484; 85025; 85610; 85730; 87040; 93005; 96365; 96375; 99285; G0378; J2405

== ENCOUNTER 2018-11-04 07:22 | Observation (INO) ==
[2018-11-04] MEDS ORDERED: NORMAL SALINE 1,000 ML IV ONE (08:32)
[2018-11-04] MEDS ORDERED: PROCHLORPERAZINE EDISYLATE 5 MG/ML VIAL IV ONE ×2 (08:33→10:00)
[2018-11-04 08:49] LABS: Hemoglobin 11.5 gm/dL (12.5-16.0); Mean Cell Volume 87.3 fl (78-100); Mean Corpuscular Hemoglobin 28.7 pg (27-31); Mean Corpuscular Hgb Conc 32.9 g/dl (32-36); Mean Platelet Volume 9.9 fl (8-12.5); Neutrophil # 8.7 K/mm3 (1.3-6.0); Neutrophil % 74.5 % (42-75.0); Platelet Count 356 K/mm3 (150-450); Red Blood Count 4.01 M/mm3 (4.2-5.4); Red Cell Distribution Width 15.2 % (11.5-14.0); White Blood Count 11.7 K/mm3 (4.0-10.5)
[2018-11-04 09:08] LABS: ALT 9 U/L (19-67); AST 14 U/L (0-48); Albumin * 3.6 gm/dl (3.4-5.0); Alkaline Phosphatase * 96 U/L (50-170); Anion Gap 16.3 mmol/L (6.8-13.8); BUN/Creatinine Ratio 12.2 (9.0-21.6); Bilirubin, Total 0.5 mg/dL (0.0-1.1); Blood Urea Nitrogen 10 mg/dL (3-23); Ca. Corrected For Albumin 9.6 mg/dL (8.4-10.2); Calcium * 9.6 mg/dL (7.9-10.9); Carbon Dioxide 24.1 mmol/L (24-32.6); Chloride 101 mmol/L (97-106); Glucose * 159 mg/dL (70-110); Lipase 58 U/L (73-393); Potassium 3.4 mmol/L (3.4-4.6); Sodium 138 mmol/L (132-142); Total Protein 8.1 gm/dL (6.2-8.2); Troponin I Less than 0.017 ng/mL (0.00-0.10)
[2018-11-04] MEDS ORDERED: MORPHINE SULFATE 4 MG/ML SYRG IV ONE (09:45)
[2018-11-04] MEDS ORDERED: MORPHINE SULFATE 2 MG/ML DISP.SYRIN IV ONE (09:48)
[2018-11-04] MEDS ORDERED: PROCHLORPERAZINE EDISYLATE 5 MG/ML VIAL ONE (09:59)
[2018-11-04] MEDS ORDERED: diphenhydrAMINE HCL 50 MG/ML VIAL IV ONE (10:07)
[2018-11-04] MEDS ORDERED: LORazepam 2 MG/ML DISP.SYRIN IV ONE ×2 (10:08→16:50)
[2018-11-04 10:52] LABS: Urine Bilirubin 1 mg/dl (NEGATIVE); Urine Blood Negative /ul (NEGATIVE); Urine Ketone 15 mg/dL (NEGATIVE); Urine Nitrite Negative (NEGATIVE); Urine Protein Negative (NEGATIVE); Urine Specific Gravity >=1.030 SP.GR. (1.005-1.010); Urine Urobilinogen Normal (NORMAL); Urine pH 5.5 pH (5.0-7.0)
[2018-11-04 10:53] LABS: Urine Appearance Slightly Cloudy (CLEAR); Urine Bacteria 3+; Urine Color Yellow; Urine RBC None Seen /hpf (0-5); Urine WBC >50 /hpf (0-5)
[2018-11-04] MEDS ORDERED: LEVOFLOXACIN IN DEXTROSE 5 % 500 MG/100 ML BAG IV SCH (11:45)
--- NOTE | 2018-11-04 12:22 | ERNOTE ---
Medical Problem HPI - Narrative Date of Service: 11/04/18 - General Chief Complaint: Nausea/Vomiting Time Seen by Provider: 11/04/18 08:20 Source: patient Exam Limitations: no limitations - Immun/Allergies/Home Medications Immunizations: IMMUNIZATION HX Immunizations Up to Date Yes History of Influenza Vaccine No Hx Pneumococcal Vaccination No Allergies/Adverse Reactions: Allergies codeine Allergy (Verified 10/01/18 18:13) enalapril Allergy (Verified 10/01/18 18:13) angioedema Latex, Natural Rubber Allergy (Verified 10/01/18 18:13) Hives lisinopril Allergy (Verified 10/01/18 18:13) Penicillins Allergy (Verified 10/01/18 18:13) salsalate Allergy (Verified 10/01/18 18:13) angioedema spironolactone Allergy (Verified 10/01/18 18:13) pruirtus Sulfa (Sulfonamide Antibiotics) Allergy (Verified 10/01/18 18:13) Tetracyclines Allergy (Verified 10/01/18 18:13) tramadol Allergy (Verified 10/01/18 18:13) throat swelling verapamil [Verapamil] Allergy (Verified 10/01/18 18:13) atorvastatin [From Lipitor] Adverse Reaction (Verified 10/01/18 18:13) myalgia fish oil Adverse Reaction (Verified 10/01/18 18:13) swelling fructose Adverse Reaction (Verified 10/01/18 18:13) Diarrhea lactose Adverse Reaction (Verified 10/01/18 18:13) Diarrhea metformin Adverse Reaction (Verified 10/01/18 18:13) diarrhea metoclopramide [From Reglan] Adverse Reaction (Verified 10/01/18 18:13) Other Jerking MRI Dye Allergy (Uncoded 10/01/18 18:13) Anaphylaxis Home Medications: HOME MEDICATIONS Cholecalciferol (Vitamin D3) [Vitamin D3] 2,000 unit PO DAILY 06/18/17 [Last Taken 10/25/18 09:00] Prednisolone Acetate/Nepafenac [Prednisolone 1%-Nepafenac 0.1%] 1 drp EACHEYE DAILY 06/18/17 [Last Taken 10/25/18 09:00] Insulin Detemir [Levemir] 43 units SC BID 05/12/18 [Last Taken 10/25/18 15:00] duloxetine 30 mg capsule,delayed release 30 mg PO HS #90 cap 07/03/18 [Last Taken 10/24/18 23:00] duloxetine 60 mg capsule,delayed release 60 mg PO DAILY #90 cap 07/03/18 [Last Taken 10/25/18 09:00] fluticasone 50 mcg/actuation nasal spray,suspension 1 spray SHANNAN DAILY PRN #9.9 g 07/03/18 [Last Taken 10/25/18 09:00] losartan 50 mg tablet 50 mg PO DAILY #90 tab 07/03/18 [Last Taken Unknown] montelukast 10 mg tablet 10 mg PO DAILY #90 tab 07/03/18 [Last Taken 10/25/18 09:00] potassium chloride ER 20 mEq tablet,extended release(part/cryst) 40 meq PO DAILY #180 tab 07/03/18 [Last Taken 10/24/18 23:00] rosuvastatin 5 mg tablet 5 mg PO HS #90 tab 07/03/18 [Last Taken 10/25/18 21:00] Acetaminophen [Tylenol] 500 mg PO Q6H PRN 07/23/18 [Last Taken Unknown] Atenolol [Tenormin] 50 mg PO HS 07/23/18 [Last Taken 10/25/18] Blood Sugar Diagnostic [Contour Test Strip] 0 ea .ROUTE .MEDSUPPLY 08/07/18 [Last Taken Unknown] Blood Sugar Diagnostic [Contour Test Strip] 0 ea .ROUTE .MEDSUPPLY 08/07/18 [Last Taken Unknown] Cyclobenzaprine HCl [Flexeril] 5 mg PO BID PRN #20 tab 10/02/18 [Last Taken 10/25/18 17:00] Docusate Sodium [Colace] 100 mg PO DAILY #30 cap 10/02/18 [Last Taken 10/25/18 09:00] lancets See Dose Instructions .ROUTE .MEDSUPPLY #100 ea 10/03/18 [Last Taken Unknown] Erythromycin Base [Erythromycin] 250 mg PO AC #90 tab 10/26/18 [Last Taken Unknown] - History of Present History Narrative: Patient presents with upper abdominal pain, mostly left, left flank pain and recurrent vomiting. 2 days. She has had problems with vomiting recurrently but this is worse and feels different to her. Pain severe. Nothing makes it better or worse. No diarrea. NO fever that she is aware of. No true CP or SOB. Has not seen anyone else for this. Timing: constant, getting worse Severity: severe Modifying Factors - (Improves): Present: other - nothign Modifying Factors - (Worsens): Present: other - nothing Review of Systems - Review of Systems Constitutional: Absent: fever EYE: Present: no symptoms reported ENT: Absent: sore throat Respiratory: Absent: shortness of breath Cardiology: Absent: syncope Gastrointestinal/Abdominal: Present: See HPI Genitourinary: Absent: dysuria Musculoskeletal: Present: See HPI Skin: Absent: rash Neurological: Present: other - generally feels weak All Other Systems: All systems neg except as marked Medical History (Last Reviewed 11/04/18 @ 12:19 by Kareem Benton MD) Bilateral lower extremity edema Onset Date: Unknown Diverticulosis of colon without diverticulitis Onset Date: Unknown Gastroparesis Helicobacter pylori (H. pylori) Allergic rhinitis Onset Date: Unknown Anemia Onset Date: ~2005 Depression Onset Date: ~2003 Diabetes mellitus, type II Onset Date: ~1999 Fibromyalgia Onset Date: ~2004 GERD (gastroesophageal reflux disease) Onset Date: ~2011 Hyperlipidemia Onset Date: ~1997 Obesity Onset Date: ~06/20/15 Sleep apnea Onset Date: ~03/2006 7cm of H20 Sarcoidosis Onset Date: ~1997 Both eyes Surgical History: Surgical History (Last Reviewed 11/04/18 @ 12:19 by Kareem Benton MD) Hx laparoscopic cholecystectomy Onset Date: ~07/21/18 H/O cardiac catheterization Onset Date: ~2003 UHIC done twice and last time showing minimal blockage. H/O colonoscopy Onset Date: ~07/2004 diverticulosis H/O echocardiogram Onset Date: ~02/03/14 LV cavity size normal mild concentric LV hypertrophy normal LVSF moderate diastolic dysfunction normal RV cavity size mild MR TR dilated inferior vena cava mild RA dilation LA is moderately dilated severe pulmonary hypertension. History of cataract surgery Onset Date: ~2000 bilateral History of esophagogastroduodenoscopy (EGD) Onset Date: ~2015 [place] History of knee replacement Onset Date: ~01/21/14 left. [facility] History of partial mastectomy of right breast Onset Date: ~02/08/12 w/ sentinel lymph node bx stage 1 invasive ductal carcinoma Pseudotumor cerebri Onset Date: ~1975 Strabismus Onset Date: ~1955 surgery for this in the left eye Family History: Family History (Last Reviewed 11/04/18 @ 12:20 by Kareem Benton MD) Sister Multiple sclerosis Father Myocardial infarction Mother Diabetes Cancer breast cancer Social History: Preferred Language Nigerian Do you have any baptist or No cultural preference? Smoking Status Never smoker Abuse History No History of abuse Psych History No pertinent hx Alcohol Use none Drug Use none (Last Updated 10/06/18 @ 11:42 by Dorina Whalen MD) No Social History Section defined Physical Exam - Physical Exam General Appearance: Present: alert, other - tremulous, thrashing around Head Exam: Present: normal inspection, no evidence of injury Eye Exam: Normal inspection: bilateral, PERRL: bilateral Ears, Nose, Throat: Present: normal ENT inspection Neck: Present: normal inspection Respiratory: Present: no respiratory distress, normal breath sounds, no accessory muscle use, lungs clear Cardiovascular/Chest: Present: regular rate, rhythm, normal peripheral pulses Gastrointestinal/Abdominal: Present: normal bowel sounds, soft, other - tendernes left upper abdomen, no clear peritoneal signs Back Exam: Present: CVA tenderness (L), other - clinical left pyelonephritis. Absent: CVA tenderness (R) Extremity Exam: Present: normal inspection Neurological Exam: Present: alert, no motor/sensory deficits Skin Exam: Present: normal color, warm/dry Progress - Results and Orders Patient's Lab Results:: I have reviewed the patient's lab results. - Vital Signs Patient's Vital Signs:: I have reviewed the patient's vital signs. Vital Signs: Vital Signs 11/04/18 07:28 11/04/18 10:19 11/04/18 10:48 Temperature 36.9 C Pulse Rate 90 75 80 Respiratory Rate 14 21 H 19 Blood Pressure 159/94 H 147/70 151/72 H O2 Sat by Pulse Oximetry 97 97 96 11/04/18 12:01 Temperature 36.7 C Pulse Rate 72 Respiratory Rate 19 Blood Pressure 155/69 H O2 Sat by Pulse Oximetry 96 - EKG EKG #1 EKG read: Interp. by me EKG Comments: Likely sinus rhythm. Non-specific, no STEMI noted. - X-Ray X-Ray #1 X-Ray: abdomen Interpretation: Interp. by me X-ray Comments: I reviewed the official radiology report - Progress/Reassessment Chief Complaint: Nausea/Vomiting Progress Note-Subjective: 11/04/18 12:15 Patient has UTI and likely left pyelonephritis. She had chronic problems with vomiting and this has likely exacerbated this problem. Nothign clinically would suggest kidney stone, no signs of sepsis or toxicity. She was not feeling well enough to go home and requested hospital observation. She was however feeling better than when she arrived. I spoke with Dr Murphy who will admit the patient observation. Departure Clinical Impression: UTI (urinary tract infection), Pyelonephritis, Intractable nausea and vomiting - Departure Disposition: Still a patient Condition: Fair Referrals: Dorina Whalen MD [Primary Care Provider] -
--- NOTE | 2018-11-04 13:40 | HP ---
Chief Complaint - Chief Complaint Date of Service: 11/04/18 Time of Service: 12:40 Chief Complaint: Left upper abdominal pain, with nausea and vomiting. History of Present Illness: 73-year-old female with a past medical history of diabetes mellitus type 2, gastroparesis, GERD, hyperlipidemia, sarcoidosis, fibromyalgia, anemia, diverticulosis, sleep apnea presents with complaints of left upper abdominal/lower chest pain radiating to her back associated with nausea and vomiting. Onset 3 days. Associated with decreased oral intake. In the emergency department she was found to have a mild leukocytosis cytosis and a positive UA. She received a dose of Levaquin in the emergency department and the pain resolved after receiving a dose of Ativan. Morphine and Compazine did not relieve her symptoms. This is a recurrent problem and has been going on for the past 4 years. She is due to follow-up with her psychiatric clinician in [place] on November 21, 2018. Denies pain with urination or urinary frequency. Medical History (Last Reviewed 11/04/18 @ 13:19 by Nieves Young RN) Bilateral lower extremity edema Onset Date: Unknown Diverticulosis of colon without diverticulitis Onset Date: Unknown Gastroparesis Helicobacter pylori (H. pylori) Allergic rhinitis Onset Date: Unknown Anemia Onset Date: ~2005 Depression Onset Date: ~2003 Diabetes mellitus, type II Onset Date: ~1999 Fibromyalgia Onset Date: ~2004 GERD (gastroesophageal reflux disease) Onset Date: ~2011 Hyperlipidemia Onset Date: ~1997 Obesity Onset Date: ~06/20/15 Sleep apnea Onset Date: ~03/2006 7cm of H20 Sarcoidosis Onset Date: ~1997 Both eyes Surgical History: Surgical History (Last Reviewed 11/04/18 @ 13:19 by Nieves Young RN) Hx laparoscopic cholecystectomy Onset Date: ~07/21/18 H/O cardiac catheterization Onset Date: ~2003 [facility] done twice and last time showing minimal blockage. H/O colonoscopy Onset Date: ~07/2004 diverticulosis H/O echocardiogram Onset Date: ~02/03/14 LV cavity size normal mild concentric LV hypertrophy normal LVSF moderate diastolic dysfunction normal RV cavity size mild MR TR dilated inferior vena cava mild RA dilation LA is moderately dilated severe pulmonary hypertension. History of cataract surgery Onset Date: ~2000 bilateral History of esophagogastroduodenoscopy (EGD) Onset Date: ~2015 [place], [place] History of knee replacement Onset Date: ~01/21/14 left. [facility] History of partial mastectomy of right breast Onset Date: ~02/08/12 w/ sentinel lymph node bx stage 1 invasive ductal carcinoma Pseudotumor cerebri Onset Date: ~1975 Strabismus Onset Date: ~1954 surgery for this in the left eye Family History: Family History (Last Reviewed 11/04/18 @ 13:20 by Nieves Young RN) Sister Multiple sclerosis Father Myocardial infarction Mother Diabetes Cancer breast cancer Social History: Patient Lives/Resources Home Utilized Preferred Language Japanese Do you have any baptism or No cultural preference? Smoking Status Never smoker Have you smoked in the past 12 No months Abuse History No History of abuse Psych History No pertinent hx Alcohol Use none Drug Use none (Last Updated 10/06/18 @ 11:42 by Dorina Whalen MD) No Social History Section defined Review Of Systems (GEN) - Review of Systems Generalized/Overall Review: Absent: Fever Respiratory: Absent: Shortness of Breath Cardiac: Absent: Chest Pain Abdominal: Present: Nausea, Vomiting, Abdominal Pain. Absent: Diarrhea Misc: All systems neg except as marked Immunizations: IMMUNIZATION HX Immunizations Up to Date Yes History of Influenza Vaccine No Hx Pneumococcal Vaccination No Allergies/Adverse Reactions: Allergies Allergy/AdvReac Type Severity Reaction Status Date / Time codeine Allergy Verified 11/04/18 13:20 enalapril Allergy angioedema Verified 11/04/18 13:20 Latex, Natural Rubber Allergy Hives Verified 11/04/18 13:20 lisinopril Allergy Verified 11/04/18 13:20 Penicillins Allergy Verified 11/04/18 13:20 salsalate Allergy angioedema Verified 11/04/18 13:20 spironolactone Allergy pruirtus Verified 11/04/18 13:20 Sulfa (Sulfonamide Allergy Verified 11/04/18 13:20 Antibiotics) Tetracyclines Allergy Verified 11/04/18 13:20 tramadol Allergy throat Verified 11/04/18 13:20 swelling verapamil [Verapamil] Allergy Verified 11/04/18 13:20 atorvastatin [From Lipitor] AdvReac myalgia Verified 11/04/18 13:20 fish oil AdvReac swelling Verified 11/04/18 13:20 fructose AdvReac Diarrhea Verified 11/04/18 13:20 lactose AdvReac Diarrhea Verified 11/04/18 13:20 metformin AdvReac diarrhea Verified 11/04/18 13:20 metoclopramide [From Reglan] AdvReac Other Verified 11/04/18 13:20 MRI Dye Allergy Anaphylaxis Uncoded 11/04/18 13:20 Home Medications: HOME MEDICATIONS Cholecalciferol (Vitamin D3) [Vitamin D3] 2,000 unit PO DAILY 06/18/17 [Last Taken 10/25/18 09:00] Prednisolone Acetate/Nepafenac [Prednisolone 1%-Nepafenac 0.1%] 1 drp EACHEYE DAILY 06/18/17 [Last Taken 10/25/18 09:00] Insulin Detemir [Levemir] 43 units SC BID 05/12/18 [Last Taken 10/25/18 15:00] duloxetine 30 mg capsule,delayed release 30 mg PO HS #90 cap 07/03/18 [Last Taken 10/24/18 23:00] duloxetine 60 mg capsule,delayed release 60 mg PO DAILY #90 cap 07/03/18 [Last Taken 10/25/18 09:00] fluticasone 50 mcg/actuation nasal spray,suspension 1 spray SHANNAN DAILY PRN #9.9 g 07/03/18 [Last Taken 10/25/18 09:00] losartan 50 mg tablet 50 mg PO DAILY #90 tab 07/03/18 [Last Taken Unknown] montelukast 10 mg tablet 10 mg PO DAILY #90 tab 07/03/18 [Last Taken 10/25/18 09:00] potassium chloride ER 20 mEq tablet,extended release(part/cryst) 40 meq PO DAILY #180 tab 07/03/18 [Last Taken 10/24/18 23:00] rosuvastatin 5 mg tablet 5 mg PO HS #90 tab 07/03/18 [Last Taken 10/25/18 21:00] Acetaminophen [Tylenol] 500 mg PO Q6H PRN 07/23/18 [Last Taken Unknown] Atenolol [Tenormin] 50 mg PO HS 07/23/18 [Last Taken 10/25/18] Blood Sugar Diagnostic [Contour Test Strip] 0 ea .ROUTE .MEDSUPPLY 08/07/18 [Last Taken Unknown] Blood Sugar Diagnostic [Contour Test Strip] 0 ea .ROUTE .MEDSUPPLY 08/07/18 [Last Taken Unknown] Cyclobenzaprine HCl [Flexeril] 5 mg PO BID PRN #20 tab 10/02/18 [Last Taken 10/25/18 17:00] Docusate Sodium [Colace] 100 mg PO DAILY #30 cap 10/02/18 [Last Taken 10/25/18 09:00] lancets See Dose Instructions .ROUTE .MEDSUPPLY #100 ea 10/03/18 [Last Taken Unknown] Erythromycin Base [Erythromycin] 250 mg PO AC #90 tab 10/26/18 [Last Taken Unknown] Exam - Exam Vital Signs: Vital Signs - Last Taken Temp 36.3 C 11/04/18 13:11 Pulse 85 11/04/18 13:11 Resp 18 11/04/18 13:11 BP 121/61 11/04/18 13:11 Pulse Ox 96 11/04/18 13:11 Constitutional: Present: Alert, Oriented x3, Cooperative, Well developed, Well nourished, No distress ENT Exam: Present: hearing grossly normal Eye Exam: bilateral eye: normal inspection, PERRL Neck: Present: supple, trachea midline. Absent: lymphadenopathy (R), lymphadenopathy (L) Back Exam: Present: normal inspection, no CVA tenderness, other - Left paraspinal muscle tenderness to mild palpation, medial to the scapula Respiratory: Present: lungs clear, normal breath sounds, no respiratory distress, no accessory muscle use, No wheezing. Absent: crackles, rhonchi Cardiovascular/Chest: Present: normal peripheral pulses, regular rate, rhythm, no edema, no murmur Peripheral Pulses: dorsalis-pedis (R): 2+, dorsalis-pedis (L): 2+ Abdomen: Present: Normal bowel sounds, soft, nontender, nondistended, obese Extremity: Present: non-tender, no pedal edema Skin Exam: Present: normal color, warm/dry Neurologic: Present: alert, normal mood/affect Appearance: Present: appropriate appearance Eye contact: Present: cooperative, good eye contact Thoughts: Present: normal thought pattern, normal mood /affect Diagnostic Studies: Abnormal Lab Results 11/04/18 11/04/18 11/04/18 Range/Units 08:43 08:43 10:48 WBC 11.7 H (4.0-10.5) K/mm3 RBC 4.01 L (4.2-5.4) M/mm3 Hgb 11.5 L (12.5-16.0) gm/dL Hct 35.0 L (37.0-47.0) % RDW 15.2 H (11.5-14.0) % Immature Gran # (Auto) 0.04 H (0.000-0.0310) K/mm3 Lymphocytes % 17.1 L (20-51) % Neutrophils # 8.7 H (1.3-6.0) K/mm3 Anion Gap 16.3 H (6.8-13.8) mmol/L Random Glucose 159 H (70-110) mg/dL ALT 9 L (19-67) U/L Lipase 58 L (73-393) U/L Urine Bilirubin 1 H (NEGATIVE) mg/dl Urine WBC >50 H (0-5) /hpf Urine Bacteria 3+ H (NONE) Laboratory Results WBC 11.7 K/mm3 (4.0-10.5) H 11/04/18 08:43 RBC 4.01 M/mm3 (4.2-5.4) L 11/04/18 08:43 Hgb 11.5 gm/dL (12.5-16.0) L 11/04/18 08:43 Hct 35.0 % (37.0-47.0) L 11/04/18 08:43 MCV 87.3 fl (78-100) 11/04/18 08:43 MCH 28.7 pg (27-31) 11/04/18 08:43 MCHC 32.9 g/dl (32-36) 11/04/18 08:43 RDW 15.2 % (11.5-14.0) H 11/04/18 08:43 Plt Count 356 K/mm3 (150-450) 11/04/18 08:43 MPV 9.9 fl (8-12.5) 11/04/18 08:43 Immature Gran % (Auto) 0.30 % (0.001-0.429) 11/04/18 08:43 Immature Gran # (Auto) 0.04 K/mm3 (0.000-0.0310) H 11/04/18 08:43 Neutrophils % 74.5 % (42-75.0) 11/04/18 08:43 Lymphocytes % 17.1 % (20-51) L 11/04/18 08:43 Monocytes % 7.4 % (0.0-9) 11/04/18 08:43 Eosinophils % 0.3 % (0.0-3.0) 11/04/18 08:43 Basophils % 0.4 % (0.0-1.0) 11/04/18 08:43 Nucleated RBC % 0.0 k/mm3 (0-1) 11/04/18 08:43 Neutrophils # 8.7 K/mm3 (1.3-6.0) H 11/04/18 08:43 Lymphocytes # 1.99 k/mm3 (1.5-3.5) 11/04/18 08:43 Monocytes # 0.9 k/mm3 (0.0-1.0) 11/04/18 08:43 Eosinophils # 0.0 k/mm3 (0.0-0.7) 11/04/18 08:43 Absolute Basophils 0.1 k/mm3 (0.0-0.1) 11/04/18 08:43 Sodium 138 mmol/L (132-142) 11/04/18 08:43 Plasma Sodium 139 mmol/L (130-142) 11/04/18 08:43 Potassium 3.4 mmol/L (3.4-4.6) 11/04/18 08:43 Chloride 101 mmol/L (97-106) 11/04/18 08:43 Carbon Dioxide 24.1 mmol/L (24-32.6) 11/04/18 08:43 Anion Gap 16.3 mmol/L (6.8-13.8) H 11/04/18 08:43 BUN 10 mg/dL (3-23) 11/04/18 08:43 Creatinine 0.82 mg/dL (0.4-1.4) 11/04/18 08:43 Est GFR (Non-Af Amer) 87 mL/min (60-130) D 11/04/18 08:43 BUN/Creatinine Ratio 12.2 (9.0-21.6) 11/04/18 08:43 Random Glucose 159 mg/dL (70-110) H 11/04/18 08:43 Lactic Acid, Venous 1.1 mmol/L (0.4-2.0) 11/04/18 08:43 Calcium 9.6 mg/dL (7.9-10.9) 11/04/18 08:43 Calcium Adj for Albumin 9.6 mg/dL (8.4-10.2) 11/04/18 08:43 Total Bilirubin 0.5 mg/dL (0.0-1.1) 11/04/18 08:43 AST 14 U/L (0-48) 11/04/18 08:43 ALT 9 U/L (19-67) L 11/04/18 08:43 Alkaline Phosphatase 96 U/L (50-170) 11/04/18 08:43 Troponin I Less than 0.017 ng/mL (0.00-0.10) 11/04/18 08:43 Total Protein 8.1 gm/dL (6.2-8.2) 11/04/18 08:43 Albumin 3.6 gm/dl (3.4-5.0) 11/04/18 08:43 Lipase 58 U/L (73-393) L 11/04/18 08:43 Urine Color Yellow 11/04/18 10:48 Urine Appearance Slightly cloudy (CLEAR) 11/04/18 10:48 Urine pH 5.5 pH (5.0-7.0) 11/04/18 10:48 Ur Specific Theodore >=1.030 SP.GR. (1.005-1.010) 11/04/18 10:48 Urine Protein Negative mg/dL (NEGATIVE) 11/04/18 10:48 Urine Glucose (UA) Negative mg/dL (NEGATIVE) 11/04/18 10:48 Urine Ketones 15 mg/dL (NEGATIVE) 11/04/18 10:48 Urine Blood Negative /ul (NEGATIVE) 11/04/18 10:48 Urine Nitrate Negative (NEGATIVE) 11/04/18 10:48 Urine Bilirubin 1 mg/dl (NEGATIVE) H 11/04/18 10:48 Urine Ictotest Negative (NEGATIVE) 11/04/18 10:48 Urine Urobilinogen Normal EU/dl (NORMAL) 11/04/18 10:48 Ur Leukocyte Esterase Negative /ul (NEGATIVE) 11/04/18 10:48 Urine RBC None seen /hpf (0-5) 11/04/18 10:48 Urine WBC >50 /hpf (0-5) H 11/04/18 10:48 Ur Epithelial Cells 0-5 /hpf (0-5) 11/04/18 10:48 Urine Bacteria 3+ (NONE) H 11/04/18 10:48 Urine Culture Comments Culture to follow 11/04/18 10:48 Influenza Type A Ag Negative (NEGATIVE) 11/04/18 09:16 Influenza Type B Ag Negative (NEGATIVE) 11/04/18 09:16 Assessment/Plan - Narrative Narrative: 73-year-old female with a past medical history of diabetes mellitus type 2, gastroparesis, GERD, hyperlipidemia, sarcoidosis, fibromyalgia, anemia, diverticulosis, sleep apnea presents with complaints of left upper abdominal/lower chest pain radiating to her back associated with nausea and vomiting. Onset 3 days. Associated with decreased oral intake. In the emergency department she was found to have a mild leukocytosis cytosis and a positive UA. She received a dose of Levaquin in the emergency department and th e pain resolved after receiving a dose of Ativan. Morphine and Compazine did not relieve her symptoms. This is a recurrent problem and has been going on for the past 4 years. She is due to follow-up with her psychiatric clinician in [place] on November 21, 2018. - Assessment/Plan (1) UTI (urinary tract infection) Assessment: Status post 1 dose of levofloxacin. Awaiting urine culture and sensitivities. Problem: Acute (2) Abdominal pain Assessment: Etiology unclear. Possibly secondary to gastroparesis versus musculoskeletal. Pain improved with Ativan Problem: Chronic Qualifiers: Abdominal location: left upper quadrant Qualified Code(s): R10.12 - Left upper quadrant pain (3) Nausea & vomiting Assessment: Improved after 2 doses of Compazine. Problem: Acute Qualifiers: Vomiting type: unspecified Vomiting Intractability: unspecified Qualified Code(s): R11.2 - Nausea with vomiting, unspecified (4) Hypertension Assessment: Stable resume home meds. Problem: Chronic Qualifiers: (5) Diabetes type 2, controlled Assessment: Stable resume home meds. Problem: Acute Qualifiers: Diabetes mellitus halfway insulin use: with halfway use Diabetes mellitus complication status: with neurologic complications Diabetes mellitus complication detail: with other neurological complication Qualified Code(s): E11.49 - Type 2 diabetes mellitus with other diabetic neurological complication; Z79.4 - shelter (current) use of insulin (6) Gastroparesis due to DM Problem: Acute
[2018-11-04] MEDS ORDERED: CYCLOBENZAPRINE HCL 10 MG TABLET PO PRN (16:44)
[2018-11-04] MEDS ORDERED: ALPRAZolam 0.5 MG TABLET PO PRN (16:46)
[2018-11-04] MEDS: LOSARTAN POTASSIUM 50 MG TABLET PO SCH (17:22)
[2018-11-04] MEDS: SPIRONOLACTONE 25 MG TABLET PO SCH (20:11)
[2018-11-04] MEDS: INSULIN DETEMIR 100 UNITS/ML VIAL SC SCH (20:17)
[2018-11-04] MEDS ORDERED: MIRTAZAPINE 15 MG TABLET PO SCH (21:00)
[2018-11-05 06:02] LABS: Albumin * 3.4 gm/dl (3.4-5.0); BUN/Creatinine Ratio 9.9 (9.0-21.6); Bilirubin, Total 0.5 mg/dL (0.0-1.1); Ca. Corrected For Albumin 9.3 mg/dL (8.4-10.2); Calcium * 9.1 mg/dL (7.9-10.9); Carbon Dioxide 24.2 mmol/L (24-32.6); Potassium 3.2 mmol/L (3.4-4.6); Total Protein 6.9 gm/dL (6.2-8.2)
[2018-11-05] MEDS: SPIRONOLACTONE 25 MG TABLET PO SCH (08:52)
[2018-11-05] MEDS: LOSARTAN POTASSIUM 50 MG TABLET PO SCH (08:52)
[2018-11-05] MEDS ORDERED: DULoxetine HCL 30 MG CAPSULE.SA PO SCH (09:00)
--- NOTE | 2018-11-05 12:09 | DS ---
(1) UTI (urinary tract infection) Diagnosis(s): She is asymptomatic with a positive UA. Her current recommendations we do not need to treat this. Discontinue the antibiotics. Problem: Acute (2) Hypertension Problem: Chronic Qualifiers: (3) Diabetes type 2, controlled Problem: Acute Qualifiers: Diabetes mellitus jail insulin use: with jail use Diabetes mellitus complication status: with neurologic complications Diabetes mellitus complication detail: with other neurological complication Qualified Code(s): E11.49 - Type 2 diabetes mellitus with other diabetic neurological complication; Z79.4 - rat exterminator (current) use of insulin (4) Gastroparesis due to DM Problem: Acute Description of Stay: 73-year-old female with a past medical history of diabetes mellitus type 2, gastroparesis, GERD, hyperlipidemia, sarcoidosis, fibromyalgia, anemia, diverticulosis, sleep apnea presents with complaints of left upper abdominal/lower chest pain radiating to her back associated with nausea and vomiting. Onset 3 days. Associated with decreased oral intake. In the emergency department she was found to have a mild leukocytosis cytosis and a positive UA. She received a dose of Levaquin in the emergency department but it has not been continued because she is asymptomatic. Her abdominal pain is a recurrent problem and has been going on for the past 4 years. She is due to follow-up with her occupational therapy director in [place] on November 21, 2018. Procedures Performed: none Results and Findings: Pending Mircobiology Results 11/04/18 10:54 Urine,Catheterized Urine Culture - Preliminary No Growth Lab Pending Results 11/04/18 08:43: WBC 11.7 H, RBC 4.01 L, Hgb 11.5 L, Hct 35.0 L, MCV 87.3, MCH 28.7, MCHC 32.9, RDW 15.2 H, Plt Count 356, MPV 9.9, Immature Gran % (Auto) 0.30, Immature Gran # (Auto) 0.04 H, Neutrophils % 74.5, Lymphocytes % 17.1 L, Monocytes % 7.4, Eosinophils % 0.3, Basophils % 0.4, Nucleated RBC % 0.0, Neutrophils # 8.7 H, Lymphocytes # 1.99, Monocytes # 0.9, Eosinophils # 0.0, Absolute Basophils 0.1 11/04/18 08:43: Sodium 138, Plasma Sodium 139, Potassium 3.4, Chloride 101, Carbon Dioxide 24.1, Anion Gap 16.3 H, BUN 10, Creatinine 0.82, Est GFR (Non-Af Amer) 87 D, BUN/Creatinine Ratio 12.2, Random Glucose 159 H, Calcium 9.6, Calcium Adj for Albumin 9.6, Total Bilirubin 0.5, AST 14, ALT 9 L, Alkaline Phosphatase 96, Troponin I Less than 0.017, Total Protein 8.1, Albumin 3.6, Lipase 58 L 11/04/18 08:43: Lactic Acid, Venous 1.1 11/04/18 09:16: Influenza Type A Ag Negative, Influenza Type B Ag Negative 11/04/18 10:48: Urine Color Yellow, Urine Appearance Slightly cloudy, Urine pH 5.5, Ur Specific [place] >=1.030, Urine Protein Negative, Urine Glucose (UA) Negative, Urine Ketones 15, Urine Blood Negative, Urine Nitrate Negative, Urine Bilirubin 1 H, Urine Ictotest Negative, Urine Urobilinogen Normal, Ur Leukocyte Esterase Negative, Urine RBC None seen, Urine WBC >50 H, Ur Epithelial Cells 0- 5, Urine Bacteria 3+ H, Urine Culture Comments Culture to follow 11/05/18 05:05: Sodium 140, Plasma Sodium 140, Potassium 3.2 L, Chloride 104, Carbon Dioxide 24.2, Anion Gap 15.0 H, BUN 7, Creatinine 0.71, Est GFR (Non-Af Amer) 103, BUN/Creatinine Ratio 9.9, Random Glucose 117 H, Calcium 9.1, Calcium Adj for Albumin 9.3, Total Bilirubin 0.5, AST 15, ALT 8 L, Alkaline Phosphatase 90, Total Protein 6.9, Albumin 3.4 Discharge Location: Home Disposition: Home self-care Condition: Fair Discharge Activity: Activity as tolerated Discharge Diet: General/regular food Referrals: Dorina Whalen MD [Primary Care Provider] - Prescriptions (Any new or edited meds): Cyclobenzaprine HCl [Flexeril] 5 mg PO DAILY PRN #30 tab PRN Reason: Muscle Spasm Complete Home Medications List: Complete Home Medication List: Insulin Detemir [Levemir] 43 units SC BID 05/12/18 duloxetine 30 mg capsule,delayed release 30 mg PO HS #90 cap 07/03/18 duloxetine 60 mg capsule,delayed release 60 mg PO DAILY #90 cap 07/03/18 fluticasone 50 mcg/actuation nasal spray,suspension 1 spray SHANNAN DAILY PRN #9.9 g 07/03/18 losartan 50 mg tablet 50 mg PO DAILY #90 tab 07/03/18 montelukast 10 mg tablet 10 mg PO DAILY #90 tab 07/03/18 potassium chloride ER 20 mEq tablet,extended release(part/cryst) 40 meq PO DAILY #180 tab 07/03/18 rosuvastatin 5 mg tablet 5 mg PO HS #90 tab 07/03/18 Acetaminophen [Tylenol] 500 mg PO Q6H PRN 07/23/18 Atenolol [Tenormin] 100 mg PO HS 07/23/18 Blood Sugar Diagnostic [Contour Test Strip] 0 ea .ROUTE .MEDSUPPLY 08/07/18 Blood Sugar Diagnostic [Contour Test Strip] 0 ea .ROUTE .MEDSUPPLY 08/07/18 Docusate Sodium [Colace] 100 mg PO DAILY #30 cap 10/02/18 lancets See Dose Instructions .ROUTE .MEDSUPPLY #100 ea 10/03/18 Erythromycin Base [Erythromycin] 250 mg PO AC #90 tab 10/26/18 DULoxetine HCL [Cymbalta] 60 mg PO DAILY 11/04/18 Exenatide [Byetta] 5 mcg SQ BID 11/04/18 Mirtazapine 30 mg PO DAILY 11/04/18 Spironolactone 25 mg PO BID 11/04/18 busPIRone HCL [Buspar] 5 mg PO DAILY PRN 11/04/18 Cyclobenzaprine HCl [Flexeril] 5 mg PO DAILY PRN #30 tab 11/05/18
[2018-11-05] MEDS: INSULIN DETEMIR 100 UNITS/ML VIAL SC SCH (12:49)
[2018-11-05 14:42] VITALS: BP 140/66
== END 2018-11-05 14:30 | disposition home or self-care (01) ==
LOC: ER 07:22 → MS 07:22
PROVIDERS: ADMIT Internal Medicine; ATTEND Internal Medicine
CPT/HCPCS: 36415; 74019; 74020; 80053; 81001; 83605; 83690; 84484; 85025; 87086; 87400; 87449; 93005; 96361; 96372; 96374; 96375; 99285; G0378

== ENCOUNTER 2019-05-06 13:48 | Observation (INO) ==
[2019-05-06 14:37] LABS: Hematocrit 37.9 % (37.0-47.0); Hemoglobin 12.2 gm/dL (12.5-16.0); Mean Cell Volume 89.6 fl (78-100); Mean Corpuscular Hemoglobin 28.8 pg (27-31); Mean Corpuscular Hgb Conc 32.2 g/dl (32-36); Mean Platelet Volume 10.1 fl (8-12.5); Neutrophil # 7.9 K/mm3 (1.3-6.0); Neutrophil % 76.6 % (42-75.0); Platelet Count 323 K/mm3 (150-450); Red Blood Count 4.23 M/mm3 (4.2-5.4); White Blood Count 10.3 K/mm3 (4.0-10.5)
[2019-05-06 14:44] LABS: Albumin * 3.9 gm/dl (3.4-5.0); Anion Gap 14.5 mmol/L (6.8-13.8); BUN/Creatinine Ratio 10.5 (9.0-21.6); Bilirubin, Total 0.5 mg/dL (0.0-1.1); Ca. Corrected For Albumin 9.6 mg/dL (8.4-10.2); Calcium * 9.8 mg/dL (7.9-10.9); Carbon Dioxide 28.3 mmol/L (24-32.6); Potassium 3.8 mmol/L (3.4-4.6); Total Protein 8.2 gm/dL (6.2-8.2)
--- NOTE | 2019-05-06 15:00 | ERNOTE ---
Abdominal HPI - Narrative Date of Service: 05/06/19 - General Chief Complaint: Constipation Time Seen by Provider: 05/06/19 14:57 Source: patient, family Exam Limitations: clinical condition - pain - Immun/Allergies/Home Medications Immunizatons: IMMUNIZATION HX Immunizations Up to Date Yes History of Influenza Vaccine No Hx Pneumococcal Vaccination No Allergies/Adverse Reactions: Allergies codeine Allergy (Verified 05/06/19 14:05) enalapril Allergy (Verified 05/06/19 14:05) angioedema Latex, Natural Rubber Allergy (Verified 05/06/19 14:05) Hives lisinopril Allergy (Verified 05/06/19 14:05) Penicillins Allergy (Verified 05/06/19 14:05) salsalate Allergy (Verified 05/06/19 14:05) angioedema spironolactone Allergy (Verified 05/06/19 14:05) pruirtus Sulfa (Sulfonamide Antibiotics) Allergy (Verified 05/06/19 14:05) Tetracyclines Allergy (Verified 05/06/19 14:05) tramadol Allergy (Verified 05/06/19 14:05) throat swelling verapamil [Verapamil] Allergy (Verified 05/06/19 14:05) atorvastatin [From Lipitor] Adverse Reaction (Verified 05/06/19 14:05) myalgia fish oil Adverse Reaction (Verified 05/06/19 14:05) swelling fructose Adverse Reaction (Verified 05/06/19 14:05) Diarrhea lactose Adverse Reaction (Verified 05/06/19 14:05) Diarrhea metformin Adverse Reaction (Verified 05/06/19 14:05) diarrhea metoclopramide [From Reglan] Adverse Reaction (Verified 05/06/19 14:05) Other Jerking MRI Dye Allergy (Uncoded 05/06/19 14:05) Anaphylaxis Home Medications: HOME MEDICATIONS duloxetine 30 mg capsule,delayed release 30 mg PO HS #90 cap 07/03/18 [Last Taken 10/24/18 23:00] duloxetine 60 mg capsule,delayed release 60 mg PO DAILY #90 cap 07/03/18 [Last Taken 10/25/18 09:00] fluticasone propionate 50 mcg/actuation nasal spray,suspension 1 spray SHANNAN DAILY PRN #9.9 g 07/03/18 [Last Taken 10/25/18 09:00] losartan 50 mg tablet 50 mg PO DAILY #90 tab 07/03/18 [Last Taken Unknown] montelukast 10 mg tablet 10 mg PO DAILY #90 tab 07/03/18 [Last Taken 10/25/18 09:00] potassium chloride ER 20 mEq tablet,extended release(part/cryst) 40 meq PO DAILY #180 tab 07/03/18 [Last Taken 10/24/18 23:00] rosuvastatin 5 mg tablet 5 mg PO HS #90 tab 07/03/18 [Last Taken 10/25/18 21:00] Acetaminophen [Tylenol] 500 mg PO Q6H PRN 07/23/18 [Last Taken Unknown] Atenolol [Tenormin] 100 mg PO HS 07/23/18 [Last Taken 10/25/18] Blood Sugar Diagnostic [Contour Test Strip] 0 ea .ROUTE .MEDSUPPLY 08/07/18 [Last Taken Unknown] Blood Sugar Diagnostic [Contour Test Strip] 0 ea .ROUTE .MEDSUPPLY 08/07/18 [Last Taken Unknown] Docusate Sodium [Colace] 100 mg PO DAILY #30 cap 10/02/18 [Last Taken 10/25/18 09:00] Spironolactone 25 mg PO BID 11/04/18 [Last Taken Unknown] busPIRone HCL [Buspar] 5 mg PO DAILY PRN 11/04/18 [Last Taken Unknown] Ondansetron [Zofran Odt] 4 mg PO Q8H PRN #12 tab.rapdis 11/10/18 [Last Taken Unknown] hyoscyamine sulfate 0.125 mg tablet 0.125 mg PO Q6H 12/10/18 [Last Taken Unknown] mirtazapine 30 mg disintegrating tablet 30 mg PO DAILY #30 tab 01/22/19 [Last Taken Unknown] diphenhydrAMINE HCL [Benadryl] 50 mg PO Q4H #30 cap 02/26/19 [Last Taken Unknown] insulin detemir (U-100) 100 unit/mL subcutaneous solution 35 unit SUBCUT BID ml 03/05/19 [Last Taken Unknown] sertraline 25 mg tablet 25 mg PO DAILY #30 tab 03/16/19 [Last Taken Unknown] lancets See Rx Instructions .ROUTE .COMPLEX #100 unspecified 03/27/19 [Last Taken Unknown] ranitidine 150 mg tablet 150 mg PO BID #60 tab 04/06/19 [Last Taken Unknown] sennosides 8.6 mg tablet 8.6 mg PO BID PRN #30 tab 05/06/19 [Last Taken Unknown] - Pain Score Pain Score #1 Pain Score: 10 Abdominal Pain Onset Location: generalized abdomen Pain Radiation: no radiation - History of Present Illness Narrative: The patient is a 73 year old female who presents for abdominal pain and vomiting which has been present for 7 days with worsening symptoms this am. There are associated symptoms of fatigue. The patient reports generalized abdominal pain, 10/10. There are no alleviating factors. There are aggravating factors of pressure. Previous treatments have included: milk of magnesia and magnesium citrate without results. The past medical history includes: anemia, depression, DM, fibromyalgia, GERD, HLD, sleep apnea and gastroparesis. The social history is negative. The patient has had no ill contacts. Patient recently seen in ER x2 for persistent abdominal pain with vomiting. Patient was seen yesterday and given milk of magnesia but has still been unable to have bowel movement with increased abdominal discomfort and onset of vomiting. Patient states she feels like she needs to have bowel movement but unable to p ass stool. Patient attempted to get in with PCP but was unable to get appt. Patient states her last bowel movement was 7 days ago. Review of Systems - Review of Systems Constitutional: Present: recent illness, fatigue. Absent: fever EYE: Present: no symptoms reported ENT: Present: no symptoms reported. Absent: ear pain, nasal drainage, sore throat Respiratory: Present: no symptoms reported. Absent: shortness of breath, cough Cardiology: Present: no symptoms reported. Absent: chest pain Gastrointestinal/Abdominal: Present: nausea, vomiting, constipation, abdominal pain. Absent: diarrhea Genitourinary: Present: no symptoms reported. Absent: dysuria, decreased urinary output Musculoskeletal: Present: no symptoms reported Skin: Present: no symptoms reported. Absent: rash Neurological: Present: dizziness/light-headedness All Other Systems: All systems neg except as marked Medical History (Updated 05/06/19 @ 18:44 by ARMIN Stoddard) Bilateral lower extremity edema Onset Date: Unknown Diverticulosis of colon without diverticulitis Onset Date: Unknown Gastroparesis Helicobacter pylori (H. pylori) Allergic rhinitis Onset Date: Unknown Anemia Onset Date: ~2005 Depression Onset Date: ~2003 Diabetes mellitus, type II Onset Date: ~1999 Fibromyalgia Onset Date: ~2004 GERD (gastroesophageal reflux disease) Onset Date: ~2011 Hyperlipidemia Onset Date: ~1997 Obesity Onset Date: ~06/20/15 Sleep apnea Onset Date: ~03/2006 7cm of H20 Sarcoidosis Onset Date: ~1997 Both eyes Surgical History: Surgical History (Updated 12/02/18 @ 14:12 by Diandra Marrero RN) Hx laparoscopic cholecystectomy Onset Date: ~07/21/18 H/O cardiac catheterization Onset Date: ~2003 UHIC done twice and last time showing minimal blockage. H/O colonoscopy Onset Date: ~07/2004-diverticulosis; 06/10/17-adenomas removed follow up in 3 years 2019. H/O echocardiogram Onset Date: ~02/03/14 LV cavity size normal mild concentric LV hypertrophy normal LVSF moderate diastolic dysfunction normal RV cavity size mild MR TR dilated inferior vena cava mild RA dilation LA is moderately dilated severe pulmonary hypertension. History of cataract surgery Onset Date: ~2000 bilateral History of esophagogastroduodenoscopy (EGD) Onset Date: ~2015 2015-[place], [place]; 06/10/17-helicobacter pylori diagnosed, chronic active gastritis. History of knee replacement Onset Date: ~01/21/14 left. [facility] History of partial mastectomy of right breast Onset Date: ~02/08/12 w/ sentinel lymph node bx stage 1 invasive ductal carcinoma Pseudotumor cerebri Onset Date: ~1975 Strabismus Onset Date: ~1954 surgery for this in the left eye Family History: Family History (Updated 04/16/18 @ 11:32 by Giuseppe Forte CMA) Sister Multiple sclerosis Father Myocardial infarction Mother Diabetes Cancer breast cancer Social History: (Last Reviewed 05/06/19 @ 18:39 by ARMIN Stoddard) Social History: mcc: No number of children: 7 number of grandchildren: 12 current occupational status: retired Service: No Tobacco: Smoking Status: Never smoker Alcohol: alcohol intake: never Substance Use: substance use type: does not use Dietary Habits: caffeine: No Physical Exam - Physical Exam General Appearance: Present: wd/wn, alert, severe distress, anxious, crying Head Exam: Present: normal inspection, no evidence of injury Eye Exam: Normal inspection: bilateral Neck: Present: normal inspection Respiratory: Present: no respiratory distress, normal breath sounds, no accessory muscle use, lungs clear Cardiovascular/Chest: Present: regular rate, rhythm, no murmur Gastrointestinal/Abdominal: Present: nondistended, soft, no organomegaly, tenderness - diffuse, abnormal bowel sounds - hypoactive. Absent: guarding, mass Neurological Exam: Present: alert, oriented, no motor/sensory deficits, other - anxious and crying Skin Exam: Present: normal color, warm/dry Progress - Date and Time Seen: Date and Time: 05/06/19 18:19 Patient has received milk and molasses enema with minimal results as well as digital disimpaction of hard stool at rectum. Patient continues to have abdominal pain with nausea and intermittent vomiting of small amounts. Patient unable to hold enema for any period of time prior to release. Patient states she needs to have bowel movement but is unable to go. Discussed case with and will admit observation for intractable abdominal pain and retained stool. - Results and Orders Patient's Lab Results:: I have reviewed the patient's lab results. - Vital Signs Patient's Vital Signs:: I have reviewed the patient's vital signs. Vital Signs: Vital Signs 05/06/19 14:03 Temperature 35.6 C L Pulse Rate 81 Respiratory Rate 16 Blood Pressure 170/87 H O2 Sat by Pulse Oximetry 93 - X-Ray X-Ray #1 X-Ray: abdomen Interpretation: Reviewed by me X-ray Comments: IMPRESSION: 1. Stool retention suggestive of constipation. No evidence for bowel obstruction. 2. Additional comments are as above. Electronically signed by Ezekiel Ascencio M.D.. - Progress/Reassessment Chief Complaint: Constipation Departure Clinical Impression: Abdominal pain Qualifiers: Abdominal location: generalized Qualified Code(s): R10.84 - Generalized abdominal pain Fecal retention Qualifiers: Constipation type: unspecified constipation type Qualified Code(s): K59.00 - Constipation, unspecified - Departure Disposition: Still a patient Condition: Stable
[2019-05-06] MEDS ORDERED: LORazepam 2 MG/ML DISP.SYRIN IV ONE ×2 (15:01→19:38)
[2019-05-06] MEDS ORDERED: ONDANSETRON HCL/PF 2 MG/ML VIAL IV ONE (15:01)
[2019-05-06] MEDS ORDERED: diphenhydrAMINE HCL 50 MG/ML VIAL IV ONE (16:36)
[2019-05-06] MEDS ORDERED: MORPHINE SULFATE 2 MG/ML DISP.SYRIN IV ONE (18:19)
[2019-05-06] MEDS: ONDANSETRON HCL/PF 2 MG/ML VIAL IV PRN (18:44)
--- NOTE | 2019-05-06 19:17 | HP ---
Chief Complaint - Chief Complaint Date of Service: 05/06/19 Time of Service: 19:11 Chief Complaint: abdominal pain History of Present Illness: Laxmi Cope is a 73-year-old -[place] female, patient of Dr. Nj, with past medical history of diabetes mellitus type 2, hyperlipidemia, diverticulosis, gastroparesis, anxiety and depression, who was admitted on 05/06/2019 because of abdominal pain and vomiting. The pain is generalized and diffuse, 10/10, associated with intermittent vomiting. She said her last bowel movement was 7 days ago. She has been in the emergency room 2 times and was just seen yesterday and given milk of magnesia. The patient was still unable to pass stool and so she again went back to our emergency room . In the emergency room her blood work were essentially within normal limits and stable. Her abd ominal x-ray showed stool retention suggestive of constipation no bowel obstruction but did show moderate stool retention throughout her colon segments. They tried her on enema as well as digital disimpaction rectally in the emergency room but patient could not hold on to enema for any period of time as she was very anxious and restless. She was then admitted for observation and for enema with milk and molasses as well as possible repeat digital manipulation rectally to disimpact and removed fecal material. Medical History (Updated 05/06/19 @ 19:33 by Dario Goldman MD) Bilateral lower extremity edema Onset Date: Unknown Diverticulosis of colon without diverticulitis Onset Date: Unknown Gastroparesis Helicobacter pylori (H. pylori) Allergic rhinitis Onset Date: Unknown Anemia Onset Date: ~2005 Depression Onset Date: ~2003 Diabetes mellitus, type II Onset Date: ~1999 Fibromyalgia Onset Date: ~2004 GERD (gastroesophageal reflux disease) Onset Date: ~2011 Hyperlipidemia Onset Date: ~1997 Obesity Onset Date: ~06/20/15 Sleep apnea Onset Date: ~03/2006 7cm of H20 Sarcoidosis Onset Date: ~1997 Both eyes Surgical History: Surgical History (Updated 12/02/18 @ 14:12 by Diandra Marrero RN) Hx laparoscopic cholecystectomy Onset Date: ~07/21/18 H/O cardiac catheterization Onset Date: ~2003 UHIC done twice and last time showing minimal blockage. H/O colonoscopy Onset Date: ~07/2004-diverticulosis; 06/10/17-adenomas removed follow up in 3 years 2019. H/O echocardiogram Onset Date: ~02/03/14 LV cavity size normal mild concentric LV hypertrophy normal LVSF moderate diastolic dysfunction normal RV cavity size mild MR TR dilated inferior vena cava mild RA dilation LA is moderately dilated severe pulmonary hypertension. History of cataract surgery Onset Date: ~2000 bilateral History of esophagogastroduodenoscopy (EGD) Onset Date: ~2015 2015-[place], [place]; 06/10/17-helicobacter pylori diagnosed, chronic active gastritis. History of knee replacement Onset Date: ~01/21/14 left. [facility] History of partial mastectomy of right breast Onset Date: ~02/08/12 w/ sentinel lymph node bx stage 1 invasive ductal carcinoma Pseudotumor cerebri Onset Date: ~1975 Strabismus Onset Date: ~1954 surgery for this in the left eye Family History: Family History (Updated 04/16/18 @ 11:32 by Giuseppe Forte CMA) Sister Multiple sclerosis Father Myocardial infarction Mother Diabetes Cancer breast cancer Social History: (Last Reviewed 05/06/19 @ 20:39 by Diandra Pinedo RN) Social History: pen[facility]entiary: No number of children: 7 number of grandchildren: 12 current occupational status: retired Service: No Tobacco: Smoking Status: Never smoker Alcohol: alcohol intake: never Substance Use: substance use type: does not use Dietary Habits: caffeine: No Review Of Systems (GEN) - Review of Systems Generalized/Overall Review: Absent: Chills, Fever EENTM: Absent: Blurred Vision Respiratory: Absent: Cough, Shortness of Breath, Orthopnea Cardiac: Absent: Chest Pain, Edema, Palpitations Abdominal: Present: Nausea, Vomiting, Abdominal Pain, Constipation Genitourinary: Absent: Urgency, Frequency Musculoskeletal: Absent: Joint Pain, Back Pain Neurological: Absent: Headache Skin: Absent: Lesions, Rash Endocrine: Absent: Intolerance to Cold, Intolerance to Heat Misc: All systems neg except as marked Immunizations: IMMUNIZATION HX Immunizations Up to Date Yes History of Influenza Vaccine No Hx Pneumococcal Vaccination No Allergies/Adverse Reactions: Allergies Allergy/AdvReac Type Severity Reaction Status Date / Time codeine Allergy Verified 05/06/19 20:39 enalapril Allergy angioedema Verified 05/06/19 20:39 Latex, Natural Rubber Allergy Hives Verified 05/06/19 20:39 lisinopril Allergy Verified 05/06/19 20:39 Penicillins Allergy Verified 05/06/19 20:39 salsalate Allergy angioedema Verified 05/06/19 20:39 spironolactone Allergy pruirtus Verified 05/06/19 20:39 Sulfa (Sulfonamide Allergy Verified 05/06/19 20:39 Antibiotics) Tetracyclines Allergy Verified 05/06/19 20:39 tramadol Allergy throat Verified 05/06/19 20:39 swelling verapamil [Verapamil] Allergy Verified 05/06/19 20:39 atorvastatin [From Lipitor] AdvReac myalgia Verified 05/06/19 20:39 fish oil AdvReac swelling Verified 05/06/19 20:39 fructose AdvReac Diarrhea Verified 05/06/19 20:39 lactose AdvReac Diarrhea Verified 05/06/19 20:39 metformin AdvReac diarrhea Verified 05/06/19 20:39 metoclopramide [From Reglan] AdvReac Other Verified 05/06/19 20:39 MRI Dye Allergy Anaphylaxis Uncoded 05/06/19 20:39 Home Medications: HOME MEDICATIONS duloxetine 30 mg capsule,delayed release 30 mg PO HS #90 cap 07/03/18 [Last Taken 10/24/18 23:00] duloxetine 60 mg capsule,delayed release 60 mg PO DAILY #90 cap 07/03/18 [Last Taken 10/25/18 09:00] fluticasone propionate 50 mcg/actuation nasal spray,suspension 1 spray SHANNAN DAILY PRN #9.9 g 07/03/18 [Last Taken 10/25/18 09:00] losartan 50 mg tablet 50 mg PO DAILY #90 tab 07/03/18 [Last Taken Unknown] montelukast 10 mg tablet 10 mg PO DAILY #90 tab 07/03/18 [Last Taken 10/25/18 09:00] potassium chloride ER 20 mEq tablet,extended release(part/cryst) 40 meq PO DAILY #180 tab 07/03/18 [Last Taken 10/24/18 23:00] rosuvastatin 5 mg tablet 5 mg PO HS #90 tab 07/03/18 [Last Taken 10/25/18 21:00] Acetaminophen [Tylenol] 500 mg PO Q6H PRN 07/23/18 [Last Taken Unknown] Atenolol [Tenormin] 100 mg PO HS 07/23/18 [Last Taken 10/25/18] Blood Sugar Diagnostic [Contour Test Strip] 0 ea .ROUTE .MEDSUPPLY 08/07/18 [Last Taken Unknown] Blood Sugar Diagnostic [Contour Test Strip] 0 ea .ROUTE .MEDSUPPLY 08/07/18 [Last Taken Unknown] Docusate Sodium [Colace] 100 mg PO DAILY #30 cap 10/02/18 [Last Taken 10/25/18 09:00] Spironolactone 25 mg PO BID 11/04/18 [Last Taken Unknown] busPIRone HCL [Buspar] 5 mg PO DAILY PRN 11/04/18 [Last Taken Unknown] Ondansetron [Zofran Odt] 4 mg PO Q8H PRN #12 tab.rapdis 11/10/18 [Last Taken Unknown] hyoscyamine sulfate 0.125 mg tablet 0.125 mg PO Q6H 12/10/18 [Last Taken Unknown] mirtazapine 30 mg disintegrating tablet 30 mg PO DAILY #30 tab 01/22/19 [Last Taken Unknown] diphenhydrAMINE HCL [Benadryl] 50 mg PO Q4H #30 cap 02/26/19 [Last Taken Unknown] insulin detemir (U-100) 100 unit/mL subcutaneous solution 35 unit SUBCUT BID ml 03/05/19 [Last Taken Unknown] sertraline 25 mg tablet 25 mg PO DAILY #30 tab 03/16/19 [Last Taken Unknown] lancets See Rx Instructions .ROUTE .COMPLEX #100 unspecified 03/27/19 [Last Taken Unknown] ranitidine 150 mg tablet 150 mg PO BID #60 tab 04/06/19 [Last Taken Unknown] sennosides 8.6 mg tablet 8.6 mg PO BID PRN #30 tab 05/06/19 [Last Taken Unknown] Exam - Exam Vital Signs: Vital Signs - Last Taken Temp 35.6 C L 05/06/19 14:03 Pulse 68 05/06/19 16:00 Resp 18 05/06/19 16:00 BP 155/77 H 05/06/19 16:00 Pulse Ox 93 05/06/19 16:00 Constitutional: Present: Alert, Oriented x3, Cooperative, Mild distress ENT Exam: Present: hearing grossly normal Eye Exam: bilateral eye: normal inspection, PERRL, EOMI Neck: Present: supple. Absent: lymphadenopathy (R), lymphadenopathy (L) Respiratory: Present: normal breath sounds, No rales, No wheezing Cardiovascular/Chest: Present: regular rate, rhythm, no JVD, no murmur Abdomen: Present: soft, nondistended, obese, tender, hypoactive. Absent: guarding, rebound tenderness Extremity: Present: no pedal edema, no calf tenderness Diagnostic Studies: Abnormal Lab Results 05/06/19 05/06/19 Range/Units 14:25 14:25 Hgb 12.2 L (12.5-16.0) gm/dL RDW 15.0 H (11.5-14.0) % Immature Gran # (Auto) 0.04 H (0.000-0.0310) K/mm3 Neutrophils % 76.6 H (42-75.0) % Lymphocytes % 15.8 L (20-51) % Neutrophils # 7.9 H (1.3-6.0) K/mm3 Anion Gap 14.5 H (6.8-13.8) mmol/L Random Glucose 172 H D (70-110) mg/dL ALT 9 L (19-67) U/L Lipase 65 L (73-393) U/L Laboratory Results WBC 10.3 K/mm3 (4.0-10.5) 05/06/19 14:25 RBC 4.23 M/mm3 (4.2-5.4) 05/06/19 14:25 Hgb 12.2 gm/dL (12.5-16.0) L 05/06/19 14:25 Hct 37.9 % (37.0-47.0) 05/06/19 14:25 MCV 89.6 fl (78-100) 05/06/19 14:25 MCH 28.8 pg (27-31) 05/06/19 14:25 MCHC 32.2 g/dl (32-36) 05/06/19 14:25 RDW 15.0 % (11.5-14.0) H 05/06/19 14:25 Plt Count 323 K/mm3 (150-450) 05/06/19 14:25 MPV 10.1 fl (8-12.5) 05/06/19 14:25 Immature Gran % (Auto) 0.40 % (0.001-0.429) 05/06/19 14:25 Immature Gran # (Auto) 0.04 K/mm3 (0.000-0.0310) H 05/06/19 14:25 76.6 % (42-75.0) H 05/06/19 14:25 15.8 % (20-51) L 05/06/19 14:25 5.6 % (0.0-9) 05/06/19 14:25 1.2 % (0.0-3.0) 05/06/19 14:25 0.4 % (0.0-1.0) 05/06/19 14:25 Nucleated RBC % 0.0 k/mm3 (0-1) 05/06/19 14:25 7.9 K/mm3 (1.3-6.0) H 05/06/19 14:25 1.63 k/mm3 (1.5-3.5) 05/06/19 14:25 0.6 k/mm3 (0.0-1.0) 05/06/19 14:25 0.1 k/mm3 (0.0-0.7) 05/06/19 14:25 Absolute Basophils 0.0 k/mm3 (0.0-0.1) 05/06/19 14:25 Sodium 141 mmol/L (132-142) 05/06/19 14:25 142 mmol/L (130-142) 05/06/19 14:25 Potassium 3.8 mmol/L (3.4-4.6) 05/06/19 14:25 Chloride 102 mmol/L (97-106) 05/06/19 14:25 Carbon Dioxide 28.3 mmol/L (24-32.6) 05/06/19 14:25 14.5 mmol/L (6.8-13.8) H 05/06/19 14:25 BUN 8 mg/dL (3-23) 05/06/19 14:25 0.76 mg/dL (0.4-1.4) 05/06/19 14:25 Est GFR (Non-Af Amer) 95 mL/min (60-130) 05/06/19 14:25 10.5 (9.0-21.6) 05/06/19 14:25 172 mg/dL (70-110) H D 05/06/19 14:25 Calcium 9.8 mg/dL (7.9-10.9) 05/06/19 14:25 Calcium Adj for Albumin 9.6 mg/dL (8.4-10.2) 05/06/19 14:25 0.5 mg/dL (0.0-1.1) 05/06/19 14:25 AST 18 U/L (0-48) 05/06/19 14:25 ALT 9 U/L (19-67) L 05/06/19 14:25 104 U/L (50-170) 05/06/19 14:25 8.2 gm/dL (6.2-8.2) 05/06/19 14:25 3.9 gm/dl (3.4-5.0) 05/06/19 14:25 Amylase 61 U/L (25-115) 05/06/19 14:25 65 U/L (73-393) L 05/06/19 14:25 Assessment/Plan - Narrative Narrative: Abdominal pain associated with vomiting likely due to obstipation/constipation of 7 days. Abdominal x-ray showing no evidence of bowel obstruction. No Ogilvies. We will retry her on milk of molasses enema and digital disimpaction and hopefully she will be able to keep her enema for some period of time for it to work. Will gie her Ativan and Morphine prior to enema to relax. If this does not work we may try GoLYTELY or Suprep. - Assessment/Plan (1) Vomiting Problem: Acute (2) Abdominal pain Problem: Acute Qualifiers: Abdominal location: generalized Qualified Code(s): R10.84 - Generalized abdominal pain (3) Constipation Problem: Acute Qualifiers: Constipation type: unspecified constipation type Qualified Code(s): K59.00 - Constipation, unspecified (4) Anxiety Problem: Acute (5) Hypertension Problem: Chronic Qualifiers: Hypertension type: essential hypertension Qualified Code(s): I10 - Essentia l (primary) hypertension (6) Diabetes type 2, controlled Problem: Chronic Qualifiers: Diabetes mellitus half-way insulin use: with half-way use Diabetes mellitus complication status: with neurologic complications Diabetes mellitus complication detail: with other neurological complication Qualified Code(s): E11.49 - Type 2 diabetes mellitus with other diabetic neurological complication (7) Gastroparesis due to DM Problem: Chronic
[2019-05-06] MEDS ORDERED: MORPHINE SULFATE 4 MG/ML SYRG IV ONE (20:50)
[2019-05-06] MEDS ORDERED: MORPHINE SULFATE 4 MG/ML SYRG IV STA (20:53)
[2019-05-06] MEDS ORDERED: LORazepam 2 MG/ML DISP.SYRIN ONE (23:35)
[2019-05-07] MEDS: MORPHINE SULFATE 2 MG/ML DISP.SYRIN IV PRN ×2 (03:39→07:40)
[2019-05-07] MEDS ORDERED: SOD CHLORIDE/NAHCO3/KCL/PEG'S 4,000 ML BTL PO ONE (08:45)
[2019-05-07] MEDS: ALPRAZolam 0.25 MG TABLET PO PRN ×2 (08:59→20:52)
[2019-05-07] MEDS: ACETAMINOPHEN 325 MG TABLET PO PRN ×2 (09:15→17:49)
[2019-05-07] MEDS: ONDANSETRON HCL/PF 2 MG/ML VIAL IV PRN ×2 (11:20→20:39)
--- NOTE | 2019-05-07 15:32 | PN ---
Subjective - Date and Time Seen Date: 05/07/19 Time: 08:27 Subjective Narrative: Abdominal pain rated 7/10. She feels anxious as well because she does not know what is going on. Objective - Review of Systems Generalized/Overall Review: Denies: Chills, Fever Respiratory: Denies: Shortness of Breath Cardiac: Denies: Chest Pain Abdominal: Reports: Nausea, Vomiting, Abdominal Pain, Constipation Neurological: Reports: Anxiety Misc: All systems neg except as marked - Vitals Vitals: Last Vital Signs Temp 36.3 C 05/07/19 14:00 Pulse 64 05/07/19 14:00 Resp 18 05/07/19 14:00 BP 188/74 H 05/07/19 14:00 Pulse Ox 100 05/07/19 14:00 - Exam Constitutional: Present: Alert, Cooperative, Well developed, Well nourished, No distress, Elderly ENT Exam: Present: hearing grossly normal Neck: Absent: lymphadenopathy (R), lymphadenopathy (L) Respiratory: Present: lungs clear, no respiratory distress, no accessory muscle use, No wheezing. Absent: crackles, rhonchi Cardiovascular/Chest: Present: normal peripheral pulses, regular rate, rhythm, no edema Abdomen: Present: Normal bowel sounds, soft, nontender, nondistended Extremity: Present: no pedal edema Skin Exam: Present: normal color, warm/dry Neurologic: Present: alert, normal mood/affect Appearance: Present: appropriate appearance, other - Anxious Eye contact: Present: cooperative Thoughts: Present: normal thought pattern Assessment/Plan Plan Narrative: 73-year-old female who past medical history of diabetes mellitus, gastroparesis, fibromyalgia, depression, sarcoidosis, hyperlipidemia, obesity who presents with complaints of constipation for the past 7 days associated with abdominal pain, nausea and vomiting. Abdominal x-ray showed no signs of obstruction. She received a molasses enema in the emergency department which she was unable to hold with minimal results. I have given her GoLYTELY this morning. Started her on Colace. She had an episode of vomiting about 400 cc of liquid after the GoLYTELY. She is ambulating. I have started her on something for anxiety, Xanax 0.25 mg 3 times a day as needed. - Problems/Diagnosis (1) Constipation Problem: Acute Qualifiers: Constipation type: slow transit constipation Qualified Code(s): K59.00 - Constipation, unspecified (2) Abdominal pain Problem: Acute Qualifiers: Abdominal location: generalized Qualified Code(s): R10.84 - Generalized abdominal pain (3) Vomiting Problem: Acute Qualifiers: Vomiting type: cyclical vomiting Vomiting Intractability: non-intractable Nausea presence: with nausea Qualified Code(s): G43.A0 - Cyclical vomiting, not intractable (4) Hypertension Problem: Chronic Qualifiers: Hypertension type: essential hypertension Qualified Code(s): I10 - Essential (primary) hypertension (5) Diabetes type 2, controlled Problem: Chronic Qualifiers: Diabetes mellitus terminal carman insulin use: with prison use Diabetes mellitus complication status: with neurologic complications Diabetes mellitus complication detail: with other neurological complication Qualified Code(s): E11.49 - Type 2 diabetes mellitus with other diabetic neurological complication (6) Gastroparesis due to DM Problem: Chronic
[2019-05-07] MEDS: SERTRALINE HCL 50 MG TABLET PO SCH (15:51)
[2019-05-07] MEDS: LOSARTAN POTASSIUM 50 MG TABLET PO SCH (15:51)
[2019-05-07] MEDS ORDERED: busPIRone HCL 5 MG TABLET PO PRN (16:31)
[2019-05-07] MEDS: HYOSCYAMINE SULFATE 0.125 MG PO SCH (17:27)
[2019-05-07] MEDS: DOCUSATE SODIUM 100 MG CAPSULE PO SCH (17:28)
[2019-05-07] MEDS ORDERED: DULoxetine HCL 30 MG CAPSULE.SA PO SCH (21:00)
[2019-05-07] MEDS ORDERED: ATENOLOL 100 MG TABLET PO SCH (21:00)
[2019-05-08] MEDS: HYOSCYAMINE SULFATE 0.125 MG PO SCH ×3 (00:07→12:56)
[2019-05-08] MEDS: ONDANSETRON HCL/PF 2 MG/ML VIAL IV PRN (04:53)
[2019-05-08 05:40] LABS: Hematocrit 36.4 % (37.0-47.0); Mean Cell Volume 88.3 fl (78-100); Mean Corpuscular Hemoglobin 29.1 pg (27-31); Mean Platelet Volume 9.2 fl (8-12.5); Neutrophil # 6.2 K/mm3 (1.3-6.0); Neutrophil % 58.3 % (42-75.0); Platelet Count 316 K/mm3 (150-450); Red Blood Count 4.12 M/mm3 (4.2-5.4); Red Cell Distribution Width 14.9 % (11.5-14.0); White Blood Count 10.6 K/mm3 (4.0-10.5)
[2019-05-08 06:00] LABS: Albumin * 3.6 gm/dl (3.4-5.0); BUN/Creatinine Ratio 10.1 (9.0-21.6); Bilirubin, Total 0.8 mg/dL (0.0-1.1); Ca. Corrected For Albumin 8.8 mg/dL (8.4-10.2); Calcium * 8.8 mg/dL (7.9-10.9); Carbon Dioxide 31.6 mmol/L (24-32.6); Potassium 2.6 mmol/L (3.4-4.6); Total Protein 7.5 gm/dL (6.2-8.2)
[2019-05-08] MEDS: ALPRAZolam 0.25 MG TABLET PO PRN (06:37)
[2019-05-08] MEDS: ACETAMINOPHEN 325 MG TABLET PO PRN (07:36)
[2019-05-08] MEDS ORDERED: POTASSIUM BICARBONATE/CIT AC 25 MEQ TABLET.EFF PO ONE ×2 (08:37→12:00)
[2019-05-08] MEDS ORDERED: DULoxetine HCL 30 MG CAPSULE.SA PO SCH (09:00)
--- NOTE | 2019-05-08 09:07 | DS ---
(1) Constipation Problem: Resolved Qualifiers: Constipation type: slow transit constipation Qualified Code(s): K59.01 - Slow transit constipation (2) Abdominal pain Problem: Resolved Qualifiers: Abdominal location: generalized Qualified Code(s): R10.84 - Generalized abdominal pain (3) Hypokalemia Problem: Acute (4) Vomiting Problem: Resolved Qualifiers: Vomiting type: cyclical vomiting Vomiting Intractability: non-intractable Nausea presence: with nausea Qualified Code(s): G43.A0 - Cyclical vomiting, not intractable (5) Hypertension Problem: Chronic Qualifiers: Hypertension type: essential hypertension Qualified Code(s): I10 - Essential (primary) hypertension (6) Diabetes type 2, controlled Problem: Chronic Qualifiers: Diabetes mellitus remote computer terminal operator insulin use: with [facility] use Diabetes andrew itus complication status: with neurologic complications Diabetes mellitus complication detail: with other neurological complication Qualified Code(s): E11.49 - Type 2 diabetes mellitus with other diabetic neurological complication (7) Gastroparesis due to DM Problem: Chronic Description of Stay: 73-year-old female who past medical history of diabetes mellitus, gastroparesis, fibromyalgia, depression, sarcoidosis, hyperlipidemia, obesity who presents with complaints of constipation for the past 7 days associated with abdominal pain, nausea and vomiting. Abdominal x-ray showed no signs of obstruction. She received a molasses enema in the emergency department with no improvement of her symptoms. She was admitted for observation. She received senna, Colace, Dulcolax suppository and GoLYTELY while admitted. She finally had multiple bowel movements that were watery with soft formed stool. She is ambulating and tolerating a diet. No more nausea or vomiting. Her potassium dropped overnight to 2.6. She is getting repleted with 100 mEq of potassium orally. She will have a repeat BMP on Saturday, May 11, 2019. She will follow-up with me in the office in 1 week. Procedures Performed: none Results and Findings: Lab Pending Results 05/06/19 14:25: WBC 10.3, RBC 4.23, Hgb 12.2 L, Hct 37.9, MCV 89.6, MCH 28.8, MCHC 32.2, RDW 15.0 H, Plt Count 323, MPV 10.1, Immature Gran % (Auto) 0.40, Immature Gran # (Auto) 0.04 H, Neutrophils % 76.6 H, Lymphocytes % 15.8 L, Monocytes % 5.6, Eosinophils % 1.2, Basophils % 0.4, Nucleated RBC % 0.0, Neutrophils # 7.9 H, Lymphocytes # 1.63, Monocytes # 0.6, Eosinophils # 0.1, Absolute Basophils 0.0 05/06/19 14:25: Sodium 141, Plasma Sodium 142, Potassium 3.8, Chloride 102, Carbon Dioxide 28.3, Anion Gap 14.5 H, BUN 8, Creatinine 0.76, Est GFR (Non-Af Amer) 95, BUN/Creatinine Ratio 10.5, Random Glucose 172 H D, Calcium 9.8, Calcium Adj for Albumin 9.6, Total Bilirubin 0.5, AST 18, ALT 9 L, Alkaline Phosphatase 104, Total Protein 8.2, Albumin 3.9, Amylase 61, Lipase 65 L 05/08/19 05:35: WBC 10.6 H, RBC 4.12 L, Hgb 12.0 L, Hct 36.4 L, MCV 88.3, MCH 29.1, MCHC 33.0, RDW 14.9 H, Plt Count 316, MPV 9.2, Immature Gran % (Auto) 0.40, Immature Gran # (Auto) 0.04 H, Neutrophils % 58.3, Lymphocytes % 31.2, Monocytes % 7.7, Eosinophils % 2.0, Basophils % 0.4, Nucleated RBC % 0.0, Neutrophils # 6.2 H, Lymphocytes # 3.32, Monocytes # 0.8, Eosinophils # 0.2, Absolute Basophils 0.0 05/08/19 05:35: Sodium 142, Plasma Sodium 142, Potassium 2.6 L D, Chloride 100, Carbon Dioxide 31.6, Anion Gap 13.0, BUN 8, Creatinine 0.79, Est GFR (Non-Af Amer) 91, BUN/Creatinine Ratio 10.1, Random Glucose 116 H D, Calcium 8.8, Calcium Adj for Albumin 8.8, Total Bilirubin 0.8, AST 19, ALT 7 L, Alkaline Phosphatase 86, Total Protein 7.5, Albumin 3.6 Discharge Location: Home Disposition: Home self-care Condition: Stable Discharge Activity: Activity as tolerated Discharge Diet: Consistent carbs Referrals: Dorina Whalen MD [Primary Care Provider] - Additional Patient Instructions (free text): -Please make TCM appointment unless detention discharge, or if following up with outside provider. Thank you! Diandra @ [phone] or Cherelle at [facility]. Complete Home Medications List: Complete Home Medication List: duloxetine 30 mg capsule,delayed release 30 mg PO HS #90 cap 07/03/18 duloxetine 60 mg capsule,delayed release 60 mg PO DAILY #90 cap 07/03/18 fluticasone propionate 50 mcg/actuation nasal spray,suspension 1 spray SHANNAN DAILY PRN #9.9 g 07/03/18 losartan 50 mg tablet 50 mg PO DAILY #90 tab 07/03/18 montelukast 10 mg tablet 10 mg PO DAILY #90 tab 07/03/18 potassium chloride ER 20 mEq tablet,extended release(part/cryst) 40 meq PO DAILY #180 tab 07/03/18 rosuvastatin 5 mg tablet 5 mg PO HS #90 tab 07/03/18 Acetaminophen [Tylenol] 500 mg PO Q6H PRN 07/23/18 Atenolol [Tenormin] 100 mg PO HS 07/23/18 Blood Sugar Diagnostic [Contour Test Strip] 0 ea .ROUTE .MEDSUPPLY 08/07/18 Blood Sugar Diagnostic [Contour Test Strip] 0 ea .ROUTE .MEDSUPPLY 08/07/18 Docusate Sodium [Colace] 100 mg PO DAILY #30 cap 10/02/18 Spironolactone 25 mg PO BID 11/04/18 busPIRone HCL [Buspar] 5 mg PO DAILY PRN 11/04/18 Ondansetron [Zofran Odt] 4 mg PO Q8H PRN #12 tab.rapdis 11/10/18 hyoscyamine sulfate 0.125 mg tablet 0.125 mg PO Q6H 12/10/18 mirtazapine 30 mg disintegrating tablet 30 mg PO DAILY #30 tab 01/22/19 insulin detemir (U-100) 100 unit/mL subcutaneous solution 35 unit SUBCUT BID ml 03/05/19 sertraline 25 mg tablet 25 mg PO DAILY #30 tab 03/16/19 lancets See Rx Instructions .ROUTE .COMPLEX #100 unspecified 03/27/19 ranitidine 150 mg tablet 150 mg PO BID #60 tab 04/06/19 sennosides 8.6 mg tablet 8.6 mg PO BID PRN #30 tab 05/06/19 diphenhydrAMINE HCL [Benadryl] 50 mg PO Q4H PRN 05/07/19
[2019-05-08] MEDS: LOSARTAN POTASSIUM 50 MG TABLET PO SCH (09:54)
[2019-05-08] MEDS: DOCUSATE SODIUM 100 MG CAPSULE PO SCH (09:54)
[2019-05-08] MEDS: SERTRALINE HCL 50 MG TABLET PO SCH (09:54)
[2019-05-08 16:34] VITALS: BP 106/51
== END 2019-05-08 14:30 | disposition home or self-care (01) ==
LOC: MS 13:48 → ER 13:48 → MS 19:00
PROVIDERS: ADMIT Internal Medicine; ATTEND Internal Medicine
CPT/HCPCS: 36415; 74019; 74020; 80053; 82150; 83690; 85025; 96374; 96375; 99285; G0378; J2405